=== PATIENT | male | born 1955 | race Two or more races ===

== ENCOUNTER 2023-12-10 12:54 | Outpatient (AMB) | payer OTHER, SELFPAY ==
--- NOTE | 2023-12-10 12:58 | MHC.OFFVIS ---
Vital Signs 12/10/23 13:05 Height 6 ft Weight 179 lb BMI 24.3 BP 122/70 Blood Pressure Location Rt brachial Position Sitting Respiration 16 Pulse 64 Pulse Source Pulse Oximeter Pulse Oximetry (%) 98 Oxygen Delivery Method Room Air Intake Visit Reasons: ENP: Resting Tremor - LVM w/add Intake Note: Pt presents for new pt evaluation for tremors. Pt reports this started about 3 years ago on his left hand. It has spread to the right hand over the last year. Emergency Specialist Required: No Allergies Sulfa (Sulfonamide Antibiotics) Allergy (Mild, Verified 12/10/23 12:58) Rash Medication List - Last Reconciled 12/10/23 by Marilee Krishna MD aspirin 81 mg PO DAILY clotrimazole 1% 1 appl topical BID cyanocobalamin (vitamin B-12) 1,000 mcg PO DAILY HPI Comments Details: 68y/o Right Handed male comes for evaluation of tremors. He started noticing tremor sin his left hand about 5 years which has progressed and now he has tremors in his right hand as well. The tremors are more with action and posture but he has tremors at rest as well.It does not affect his ADLs , may have some difficulty while brushing his teeth .He denies any leg tremors, head or voice tremors. Handwriting is fine most of the times. No difficulty with dressing or showering No change in voice. No change in gait No memory problems/ No memory issues,depression or anxiety. He has dizziness that started 10 years ago. he describes the episode of vertigo with nausea, sweating . No tinnitus.He has 1 episode a month and can last 10 minutes. He denies constipation or diarhea. Both his brothers are diagnosed with parkinsons disease. 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 He smokes 1 joint of weed a night [facility] Medical History (Updated 12/10/23 @ 13:37 by Marilee Krishna MD) Chronic prostatitis Essential and other specified forms of tremor Neck pain Low back pain B12 deficiency Lipoma Family History Brother No problems noted. Father No problems noted. Mother No problems noted. Social History Household Members: None Housing: Apartment Alcohol intake: never Patient Tobacco Use Status: Never used Tobacco Substance Use Type: Marijuana Substance Use Type Other:: One joint daily Physical Exam Vital Signs: Last Vital Signs Pulse 64 12/10/23 13:05 Resp 16 12/10/23 13:05 BP 122/70 12/10/23 13:05 Pulse Ox 98 12/10/23 13:05 Oxygen Delivery Method Room Air 12/10/23 13:05 BMI result Body Mass Index 24.3 Const Other: Andreas Ue postural and action tremors Voice tremors Good facial expression and blink No bradykinesia or cog wheel rigidity General: cooperative, healthy appearing and comfortable Nutritional Appearance: average body habitus Orientation/consciousness: patient oriented x3 Eyes Pupils: Equal, round and reactive pupils present Neuro General: patient oriented x3, gait normal, tone normal, moves all extremities and no focal motor deficits Cranial nerves: Yes Facial sensation intact/muscles of mastication intact, Yes Equal, round and reactive pupils present, Yes Bilaterally intact EOM present, Yes Nystagmus not present, Yes Normal facial strength present, Yes Midline tongue present and Yes Ability to bilaterally elevate shoulders present Cognition (Neuro): normal cognition Gait exam (Neuro): Normal gait present Motor exam (neuro): 5/5 motor strength present throughout and Normal motor muscle tone present throughout Deep tendon reflexes (DTR's): Right triceps reflex intensity grade: 2+, Left triceps reflex intensity grade: 2+, Rt Biceps (C5, C6): 2+, Left biceps reflex intensity grade: 2+, Right brachioradialis reflex intensity grade: 2+, Left brachioradialis reflex intensity grade: 2+, Right patellar reflex intensity grade: 3+ and Left patellar reflex intensity grade: 3+ Coordination: [id number] test normal Assessment & Plan Assessment & Plan (1) Essential and other specified forms of tremor: Code(s): G25.0 - Essential tremor; G25.2 - Other specified forms of tremor Category: Medical Plan I will trial him on Primidone 50mg tid for 2 weeks if he luz snot notice improvemnet he can stop. I will monitor his tremors clinically Medications: New primidone 50 mg PO TID 90 tabs 0RF Coding Level of Care Code New Pt Level 4 (29377) Diagnoses Essential and other specified forms of tremor G25.0; G25.2
[2023-12-10 13:05] VITALS: BP 122/70; PULSE 64; RESP 16; O2SAT 98; BMI 24.3
== END 2023-12-10 13:43 | disposition home or self-care (01) ==
PROVIDERS: PCP Internal Medicine; Referring Provider Internal Medicine; Visit Provider Psychiatry & Neurology Neurology
DX: G25.0 Essential tremor (principal); G25.2 Other specified forms of tremor
CPT/HCPCS: 99204

== ENCOUNTER → 2023-12-10 12:54 | Outpatient (BNVA) | payer OTHER, SELFPAY | PROVIDERS: PCP Internal Medicine; Visit Provider Psychiatry & Neurology Neurology | DX: G25.0 Essential tremor (principal); G25.2 Other specified forms of tremor | CPT/HCPCS: 99202 ==

== ENCOUNTER 2024-07-13 15:30 | Outpatient (AMB) | payer OTHER, SELFPAY ==
[2024-07-13 15:32] VITALS: BP 128/86; PULSE 61; O2SAT 97; BMI 25.5
--- NOTE | 2024-07-13 15:32 | A.OFFVIS_ITS ---
Vital Signs 07/13/24 15:32 Height 6 ft Weight 188 lb BMI 25.5 BP 128/86 Blood Pressure Location Lt brachial Position Sitting Pulse 61 Pulse Source Pulse Oximeter Pulse Oximetry (%) 97 Oxygen Delivery Method Room Air Intake Visit Reasons: 6 mon follow up Allergies Sulfa (Sulfonamide Antibiotics) Allergy (Mild, Verified 07/13/24 15:34) Rash Medication List - Last Reconciled 07/13/24 by Marilee Krishna MD aspirin 81 mg PO DAILY HPI Comments Details: 69y/o Right Handed male follow up of tremors.he did not tolerate primidone. He did feel groggy. he has difficulty eating , writing etc. He also has reports of vertigo when he usually wakes up from bed with nausea, sweating etc. History from initial visit-He started noticing tremor sin his left hand about 5 years which has progressed and now he has tremors in his right hand as well. The tremors are more with action and posture but he has tremors at rest as well.It does not affect his ADLs , may have some difficulty while brushing his teeth .He denies any leg tremors, head or voice tremors. Handwriting is fine most of the times. No difficulty with dressing or showering No change in voice. No change in gait No memory problems/ No memory issues,depression or anxiety. He has dizziness that started 10 years ago. he describes the episode of vertigo with nausea, sweating . No tinnitus.He has 1 episode a month and can last 10 minutes. He denies constipation or diarhea. Both his brothers are diagnosed with parkinsons disease. 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 He smokes 1 joint of weed a night [facility] Medical History Vertigo Chronic prostatitis Essential and other specified forms of tremor Neck pain Low back pain B12 deficiency Lipoma Family History Brother No problems noted. Father No problems noted. Mother No problems noted. Social History Household Members: None Housing: Apartment Alcohol intake: never Patient Tobacco Use Status: Never used Tobacco Substance Use Type: Marijuana Physical Exam Vital Signs: Last Vital Signs Pulse 61 07/13/24 15:32 BP 128/86 07/13/24 15:32 Pulse Ox 97 07/13/24 15:32 Oxygen Delivery Method Room Air 07/13/24 15:32 BMI result Body Mass Index 25.5 Const Other: Andreas Ue postural and action tremors No voice tremors Good facial expression and blink No bradykinesia or cog wheel rigidity General: cooperative, healthy appearing and comfortable Nutritional Appearance: average body habitus Orientation/consciousness: patient oriented x3 Eyes Pupils: Equal, round and reactive pupils present Neuro General: patient oriented x3, gait normal, tone normal, moves all extremities and no focal motor deficits Cranial nerves: Yes Facial sensation intact/muscles of mastication intact, Yes Equal, round and reactive pupils present, Yes Bilaterally intact EOM present, Yes Nystagmus not present, Yes Normal facial strength present, Yes Midline tongue present and Yes Ability to bilaterally elevate shoulders present Cognition (Neuro): normal cognition Gait exam (Neuro): Normal gait present Motor exam (neuro): 5/5 motor strength present throughout and Normal motor muscl e tone present throughout Deep tendon reflexes (DTR's): Right triceps reflex intensity grade: 2+ Coordination: [id number] test normal Assessment & Plan Assessment & Plan (1) Essential and other specified forms of tremor: Code(s): G25.0 - Essential tremor; G25.2 - Other specified forms of tremor Category: Medical (2) Vertigo: Comment: renae BP Code(s): R42 - Dizziness and giddiness Category: Medical Plan I will trial him on Propranolol 10mg bid .discussed side effects Vestibular therapy for vertigo . Orders: Orders PT Evaluation and Treatment Today R42 - Dizziness and giddiness Medications: New propranolol 10 mg PO BID 60 tabs 0RF Coding Level of Care Code Est Pt Level 4 (74900) Complex EM visit Add On G2211 Diagnoses Essential and other specified forms of tremor G25.0; G25.2 Vertigo R42
--- OUTSIDE RECORDS SUMMARY | 2024-07-13 17:19 | XMS_ITS | Continuity of Care Document ---
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 It does not include entries that were removed or entered in error. 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 Condition [facility] Exposure to potentially hazardous substance Active Condition Aug 28, 2023 Entered By: CHINA SILVERIO Comment: Original ASHLEY Screen completed 06/11/22 [facility] [place] [facility] herniated disc Active [facility] [place] [facility] Herpes Genitalis Active Condition Aug 11, 2012 Entered By: JOY KAUFFMAN Comment: and Oral Mucosa [place] History of adenomatous polyp of colon Active Condition Aug 21, 2007 Entered By: JENN MARTINEZ Comment: August 01, 2007 wnl GI [place] 2021 Entered By: TAVO LANDEROS Comment: -- 07/2018 2x TA -> due ec 2023 Entered By: TAVO LANDEROS Comment: 02/2024 TA x11 removed, size 3-7mm- repeat 12m -Genetic referral [facility] by [facility] [place] [facility] History of haematuria Active Condition Jun 11, 2022 Entered By: TAVO LANDEROS Comment: negative urology work up 2021 Entered By: TAVO LANDEROS Comment: CT A/P and cystoscopy [place] Insomnia * (ICD-9-CM 780.52) Active Condition [place] Loose stools Active Condition [facility] Lumbar radiculopathy Active Condition [place] Major Depressive Disorder, Recurrent, Unspecified (ICD-9-CM 296.30) Active Condition [place] Male erectile disorder Active [facility] Male hypogonadism Active Condition [place] Microcytic hypochromic anemia Active Condition Oct 28, 2015 Entered By: FRANSICO OLIVA Comment: see hemoglobin electrophoresis 04/2013, probableApr 2015 Entered By: FRANSICO OLIVA Comment: alpha thalassemia trait [place] Non-cardiac chest pain Active Condition Apr 28, 2018 Entered By: FRANSICO OLIVA Comment: ETT 11/2017 - 100% MPHR at high functional capacity w/o chest pain or DOEOct 2017 Entered By: FRANSICO OLIVA Comment: no diagnostic evidence of ischemia by ECG, no sustained arrhythmias [place] 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 [facility] Orthostatic Hypotension * (ICD-9-CM 458.0) Active Condition [facility] Osteoarthritis * (ICD-9-CM 715.90) Active Condition [place] Overweight Active Condition [facility] Personal History of Affective Disorders (ICD-9-CM V11.1) Active Condition [facility] Raised prostate specific antigen Active Condition Jun 11 Entered By: TAVO LANDEROS Comment: normalized ec 2021 Entered By: TAVO LANDEROS Comment: TRUS Bx 05/2021 benign [place] Resting tremor Active Condition [facility] Thiamine deficiency Active Condition [facility] Transient Ischemic Attack * (ICD-9-CM 435.9) Active Condition [place] Tremor Active Condition [facility] Varicocele * (ICD-9-CM 456.4) Active Condition [facility] Vitamin B12 deficiency (non anemic) [facility] abnl cardiac stress test Inactive Condition 06/11/2022 Jun 17, 2007 Entered By: OSWALD RIVAS Comment: review records, will likely need cardio referalMay 2009 Entered By: FRANSICO OLIVA Comment: normal ETT 2009 [facility] Anemia Inactive Condition 11/06/2011 [facility] Diagnosis: ICD-10-CM L98.9 Disorder of the skin and subcutaneous tissue, unspecified Active Diagnosis [place] Diagnosis: ICD-10-CM Z46.0 Encounter for fit/adjst of spectacles and contact lenses Active Diagnosis [facility] Diagnosis: ICD-10-CM H40.013 Open angle with borderline findings, low risk, bilateral Active Diagnosis [facility] Diagnosis: ICD-10-CM H25.813 Combined forms of age-related cataract, bilateral Active Diagnosis [facility] Diagnosis: ICD-10-CM I10 Essential (primary) hypertension Active Diagnosis [facility] Diagnosis: ICD-10-CM I35.8 Other nonrheumatic aortic valve disorders Active Diagnosis [facility] Diagnosis: ICD-10-CM L01.00 Impetigo, unspecified Active Diagnosis [place] Diagnosis: ICD-10-CM R25.1 Tremor, unspecified Active Diagnosis [facility] Medications Combined list of outpatient medications from Department of Defense and Veterans Affairs facilities.Medications provided include 1) outpatient medications from the last 15 months, and 2) patient-reported medications. Medication Details Route Status Patient Instructions Prescription Expires Prescription Number Last Dispense Date Ordering Provider Order Date Order Qty Source ASPIRIN 81MG TAB,EC TAKE ONE TABLET BY MOUTH DAILY ORAL ACTIVE Alfonso OLIVA 2012 [facility] chlorhex gluc 4 % TOP LIQD [15 ML] APPLY MODERATE AMOUNT TOPICALL Y ONCE DAILY FOR SKIN CLEANSIN G 08/10/2023 [id number] TAVO NELSON 2023 480 [facility] CHLORHEXIDI NE GLUCONATE 4% LIQUID,TOP APPLY MODERATE AMOUNT TOPICALL Y ONCE DAILY FOR SKIN CLEANSIN G TOPICA L 08/10/2023 [id number] 4 TAVO NELSON 2023 480 [place] Clotrimazol e (Lotrimin Eq.) Cream 1% Topical APPLY A SMALL AMOUNT TOPICALL Y TWICE DAILY FOR FUNGAL INFECTIO N 09/22/2023 [id number] TAVO NELSON 2023 30 [facility] CLOTRIMAZOL E 1% CREAM,TOP APPLY A SMALL AMOUNT TOPICALL Y TWICE DAILY FOR FUNGAL INFECTIO N TOPICA L 09/22/2023 [id number] TAVO NELSON 2023 30 [place] CYANOCOBALA MIN 1,000 MCG ORAL TAB TAKE ONE TABLET BY MOUTH ONCE DAILY FOR VITAMIN SUPPLEME NTATION Discont inued 07/11/2024 [id number] 4 TAVO NELSON 2023 90 [facility] CYANOCOBALA MIN 1000MCG TAB TAKE ONE TABLET BY MOUTH ONCE DAILY FOR VITAMIN SUPPLEME NTATION ORAL DISCONT INUED BY PROVIDE R 07/11/2024 [id number] 4 TAVO NELSON 2023 90 [place] CYANOCOBALA MIN 500 MCG ORAL TAB TAKE ONE TABLET BY MOUTH ONCE DAILY FOR PREVENTI ON OF VITAMIN B12 DEFICIEN CY Active 09/01/2024 [id number] 4 TAVO NELSON 2023 100 [facility] CYANOCOBALA MIN 500MCG TAB TAKE ONE TABLET BY MOUTH ONCE DAILY FOR PREVENTI ON OF VITAMIN B12 DEFICIEN CY ORAL HOLD 09/01/2024 [id number] 4 TAVO NELSON 2023 100 [place] Hydrocortis one (ProctoCrea m-HC Eq.) Cream 2.5% Topical APPLY A MODERATE AMOUNT TOPICALL Y TWICE DAILY FOR RASH 09/22/2023 [id number] TAVO NELSON 2023 30 [facility] HYDROCORTIS ONE 2.5% CREAM,TOP APPLY A MODERATE AMOUNT TOPICALL Y TWICE DAILY FOR RASH TOPICA L 09/22/2023 [id number] TAVO NELSON 2023 30 [facility] mupirocin 2 % TOP OINT [15GM] APPLY THIN LAYER TOPICALL Y THREE TIMES A DAY FOR SKIN INFECTIO N 08/10/2023 [id number] 4 TAVO NELSON 2023 66 [facility] MUPIROCIN 2% OINT,TOP APPLY THIN LAYER TOPICALL Y THREE TIMES A DAY FOR SKIN INFECTIO N TOPICA L 08/10/2023 [id number] 4 TAVO NELSON 2023 66 [place] PEG-3350 (SODIUM CHLORIDE/NA HCO3/KCL/PE G), 420G, SOLN RECON, ORAL, AFFORDABLE PHAR, 4000 ml BOTTLE Cancele d [id number] 4 [id number] : 2023 0 Pharmac y Data Transac tion Service Facilit y PEG-3350 (SODIUM CHLORIDE/NA HCO3/KCL/PE G), 420G, SOLN RECON, ORAL, AFFORDABLE PHAR, 4000 ml BOTTLE Active [id number] 2023 4000 Pharmac y Data Transac tion Service Facilit y PRIMIDONE (PRIMIDONE) , 50MG, TABLET, ORAL, [employer], 100 ea. BOTTLE Active [id number] 2023 90 Pharmac y Data Transac tion Service Facilit y THIAMINE 100MG TAB TAKE ONE TABLET BY MOUTH ONCE DAILY ORAL DISCONT INUED BY PROVIDE R 07/11/2024 [id number] LINN NONAMARIAMACLAYTONGamalielBRIGITTECOLIN Estephania 2023 100 [place] Thiamine 100mg, Tablet, Oral TAKE ONE TABLET BY MOUTH ONCE DAILY Discont inued 07/11/2024 [id number] 4 TAVO NELSON 2023 100 [facility] THIAMINE 50MG TAB TAKE ONE TABLET BY MOUTH ONCE DAILY FOR DEFICIEN CY IN THIAMINE OR VITAMIN B1 ORAL ACTIVE 06/29/2025 [id number] 4 LINN NONATAVO LESLIE 2023 90 [facility] Allergies, Adverse Reactions, Alerts Combined list of allergies from Department of Defense and Veterans Affairs facilities. It does not include entries that were removed or entered in error. Substance Category Reaction Severity Reaction type Status Date Reported Comments Source BACTRIM-DS Propensity to adverse reactions to drug (finding) Jaundice SEVERE active 5 [facility] Immunizations Combined list of available immunizations from the Department of Defense and Veterans Affairs facilities. Immunization Series Date Given Administered By Site Reaction Lot Number CVX Code Drug Lumber Marker Status Comments Source INFLUENZA, UNSPECIFIED FORMULATION 2023 88 complet ed [facility] [place] [facility] INFLUENZA, UNSPECIFIED FORMULATION 2023 88 complet ed [facility] INFLUENZA VACCINE, QUADRIVALENT, ADJUVANTED 2021 205 complet ed [facility] PNEUMOCOCCAL CONJUGATE PCV20, POLYSACCHARID E [id number] CONJUGATE, ADJUVANT, PF 2021 216 complet ed [facility] COVID-19, mRNA, LNP-S, PF, 100 mcg or 50 mcg dose 2021 BOGDASARIAN, () Not Given COVID-19, mRNA, LNP-S, PF, 100 mcg or 50 mcg dose [facility] INFLUENZA VACCINE, QUADRIVALENT, ADJUVANTED 2020 205 complet ed [facility] TDAP 2020 115 complet ed [facility] COVID-19 (MODERNA), MRNA, LNP-S, PF, 100 MCG/0.5 ML DOSE 2 2020 207 complet ed MOD; [id number]; 1 [place] COVID-19 (MODERNA), MRNA, LNP-S, PF, 100 MCG/0.5 ML DOSE 1 2020 207 complet ed MOD; [id number]; 1 [place] INFLUENZA, INJECTABLE, QUADRIVALENT, PRESERVATIVE FREE 2019 150 complet ed [place] PNEUMOCOCCAL POLYSACCHARID E PPV23 2019 33 complet ed [place] INFLUENZA, INJECTABLE, QUADRIVALENT, PRESERVATIVE FREE 2018 150 complet ed Site: Left Deltoid [place] ZOSTER RECOMBINANT 2 2018 187 complet ed [place] INFLUENZA, INJECTABLE, QUADRIVALENT 2017 158 complet ed Site: Right Deltoid [place] ZOSTER RECOMBINANT 1 2017 187 complet ed [place] INFLUENZA, SEASONAL, INJECTABLE 2016 141 complet ed Site: Right Deltoid [place] ZOSTER (HISTORICAL) 2015 121 complet ed [place] FLU,3 YRS (HISTORICAL) 2014 88 complet ed Site: Left Deltoid [place] FLU,3 YRS (HISTORICAL) 2013 88 complet ed Site: Left Deltoid [place] FLU,3 YRS (HISTORICAL) 2012 88 complet ed Site: Left Deltoid [place] FLU,3 YRS (HISTORICAL) 2011 88 complet ed Site: Left Deltoid [place] FLU,3 YRS (HISTORICAL) 2010 88 complet ed Site: Right Deltoid [place] DTAP, UNSPECIFIED FORMULATION 2010 107 complet ed Site: Left Deltoid [place] FLU,3 YRS (HISTORICAL) 2009 88 complet ed Site: Left Deltoid [place] NOVEL INFLUENZA-H1N 1-09, ALL FORMULATIONS 2009 128 complet ed [employer] [place] MMR 2008 ROYA KIM 03 comple t ed [place] FLU,3 YRS (HISTORICAL) 2008 88 complet ed Site: Right Deltoid [place] FLU,3 YRS (HISTORICAL) [address] [facility] [place] [facility] FLU,3 YRS (HISTORICAL) 2006 88 complet ed [facility] [place] [facility] Results Combined list of recent chemistry, hematology and other laboratory results from Department of Defense and Veterans Affairs, ranging from 15 months to all on record, depending upon the facility. Order Name Results Value Reference Range Date Interpretation Specimen Comments Source VITAMIN B-1 (THIAMINE )-(QU) THIAMINE [MOLES/VOLU ME] IN SERUM OR PLASMA 6 nmol/L 8 - 30 06/19 L Specimen Type: PLASMA Comment: Vitamin supplementa tion within 24 hours prior to blood draw may affect the accuracy of the results. This test was developed and its analytical performance characteris tics have been determined by [employer] It has not been cleared or approved by the U.S. Food and Drug Administrat ion. This assay has been validated pursuant to the CLIA regulations and is used for clinical purposes. Test Performed by [facility], [facility], [address] [place] [address] Juan Sanchez M.D., Ph.D., Director of Laboratorie s , CLIA [id number] TEST PERFORMED AT: , Ordering Provider: ALIRIO SMITH Report Released Date/Time: Jun 14, 2024 11:22 AM Reporting Lab: [facility] [address] [facility] [address] Performing Lab: [facility] [address] PSA PROSTATE SPECIFIC AG [MASS/VOLUM E] IN SERUM OR PLASMA 4.27 ng/mL 0.00 - 4.00 06/19 H Specimen Type: SERUM No comment entered. Ordering Provider: ALIRIO SMITH Report Released Date/Time: Jun 14, 2024 11:21 AM Reporting Lab: [facility] [address] [facility] [address] Performing Lab: [facility] [address] [facility] [address] [place] VITAMIN B12 COBALAMIN (VITAMIN B12) [MASS/VOLUM E] IN SERUM OR PLASMA 333 pg/mL 200 - 900 06/19 Specimen Type: SERUM No comment entered. Ordering Provider: ALIRIO SMITH Report Released Date/Time: Jun 14, 2024 11:22 AM Reporting Lab: [address] [address] Performing Lab: [address] [address] [place] LIPID PANEL FASTING CHOLESTEROL [MASS/VOLUM E] IN SERUM OR PLASMA 147 mg/dL 06/19 Specimen Type: SERUM No comment entered. Ordering Provider: ALIRIO SMITH Report Released Date/Time: Jun 11, 2024 03:04 PM Reporting Lab: [address] [address] Performing Lab: [address] [address] [place] LIPID PANEL FASTING TRIGLYCERID E [MASS/VOLUM E] IN SERUM OR PLASMA 69 mg/dL 0 - 150 06/19 Specimen Type: SERUM No comment entered. Ordering Provider: ALIRIO SMITH Report Released Date/Time: Jun 11, 2024 03:04 PM Reporting Lab: [address] [address] Performing Lab: [address] [address] [place] LIPID PANEL FASTING CHOLESTEROL IN LDL [MASS/VOLUM E] IN SERUM OR PLASMA BY CALCULATION 91 mg/dL 0 - 129 06/19 Specimen Type: SERUM No comment entered. Ordering Provider: ALIRIO SMITH Report Released Date/Time: Jun 11, 2024 03:04 PM Reporting Lab: [address] [address] Performing Lab: [facility] [place] [facility] [address] [facility] [address] [place] LIPID PANEL FASTING CHOLESTEROL .TOTAL/CHOL ESTEROL IN HDL [MASS RATIO] IN SERUM OR PLASMA 3.5 06/19 Specimen Type: SERUM No comment entered. Ordering Provider: ALIRIO SMITH Report Released Date/Time: Jun 11, 2024 03:04 PM Reporting Lab: [facility] [address] [address] Performing Lab: [facility] [place] [facility] [address] [place] LIPID PANEL FASTING CHOLESTEROL IN HDL [MASS/VOLUM E] IN SERUM OR PLASMA 42 mg/dL 40 - 60 06/19 Specimen Type: SERUM No comment entered. Ordering Provider: ALIRIO SMITH Report Released Date/Time: Jun 11, 2024 03:04 PM Reporting Lab: [facility] TRN [place] [address] [address] Performing Lab: [facility] [place] [address] [address] [place] LIVER FUNCTION PROTEIN [MASS/VOLUM E] IN SERUM OR PLASMA 6.0 g/dL 6.0 - 8.3 06/19 Specimen Type: SERUM No comment entered. Ordering Provider: ALIRIO SMITH Report Released Date/Time: Jun 11, 2024 03:04 PM Reporting Lab: [facility] [place] [address] [address] Performing Lab: [facility] [address] [place] LIVER FUNCTION ALBUMIN [MASS/VOLUM E] IN SERUM OR PLASMA 3.7 g/dL 3.5 - 5.0 06/19 Specimen Type: SERUM No comment entered. Ordering Provider: ALIRIO SMITH Report Released Date/Time: Jun 11, 2024 03:04 PM Reporting Lab: [facility] [place] [facility] [address] [facility] [address] Performing Lab: [facility] [place] [facility] [address] [facility] [address] [place] LIVER FUNCTION ALKALINE PHOSPHATASE [ENZYMATIC ACTIVITY/VO LUME] IN SERUM OR PLASMA 63 U/L 40 - 150 06/19 Specimen Type: SERUM No comment entered. Ordering Provider: ALIRIO SMITH Report Released Date/Time: Jun 11, 2024 03:04 PM Reporting Lab: [facility] [place] [facility] [address] [facility] [address] Performing Lab: [facility] [place] [address] [address] [place] LIVER FUNCTION ASPARTATE AMINOTRANSF ERASE [ENZYMATIC ACTIVITY/VO LUME] IN SERUM OR PLASMA 15 U/L 5 - 34 06/19 Specimen Type: SERUM No comment entered. Ordering Provider: ALIRIO SMITH Report Released Date/Time: Jun 11, 2024 03:04 PM Reporting Lab: [facility] [place] [address] [address] Performing Lab: [facility] [place] [address] [address] [place] LIVER FUNCTION ALANINE AMINOTRANSF ERASE [ENZYMATIC ACTIVITY/VO LUME] IN SERUM OR PLASMA 14 U/L 06/19 Specimen Type: SERUM No comment entered. Ordering Provider: ALIRIO SMITH Report Released Date/Time: Jun 11, 2024 03:04 PM Reporting Lab: [facility] [place] [address] [address] Performing Lab: [facility] [place] [address] [address] [place] LIVER FUNCTION BILIRUBIN.T OTAL [MASS/VOLUM E] IN SERUM OR PLASMA 0.5 mg/dL 0.2 - 1.2 06/19 Specimen Type: SERUM No comment entered. Ordering Provider: ALIRIO SMITH Report Released Date/Time: Jun 11, 2024 03:04 PM Reporting Lab: [facility] [address] [address] Performing Lab: [address] [address] [place] HEMOGLOBI N A1C PANEL HEMOGLOBIN A1C/HEMOGLO BIN.TOTAL IN BLOOD BY HPLC 5.3 4.0 - 5.6 06/19 Specimen Type: BLOOD Comment: Values obtained from A1C measurement s can vary. For atypical A1C assays, a reported value of 7.0 could actually be between 6.72 and 7.28 if measured by a reference method. A reported value of 9.0 could actually be between 8.73 and 9.27. Ref: http://www. ngsp.org/[place] Pdata.asp Ordering Provider: ALIRIO SMITH Report Released Date/Time: Jun 11, 2024 03:04 PM Reporting Lab: [facility] [address] Performing Lab: [facility] [address] [place] BASIC METABOLIC PANEL (fasting) UREA NITROGEN [MASS/VOLUM E] IN SERUM OR PLASMA 8 mg/dL 7 - 25 06/19 Specimen Type: SERUM No comment entered. Ordering Provider: ALIRIO SMITH Report Released Date/Time: Jun 11, 2024 03:04 PM Reporting Lab: [facility] [address] Performing Lab: [facility] [address] [place] BASIC METABOLIC PANEL (fasting) GLUCOSE [MASS/VOLUM E] IN SERUM OR PLASMA 90 mg/dL 65 - 100 06/19 Specimen Type: SERUM No comment entered. Ordering Provider: ALIRIO SMITH Report Released Date/Time: Jun 11, 2024 03:04 PM Reporting Lab: [facility] [address] Performing Lab: [facility] [address] [facility] [address] [place] BASIC METABOLIC PANEL (fasting) SODIUM [MOLES/VOLU ME] IN SERUM OR PLASMA 140 mmol/L 135 - 145 06/19 Specimen Type: SERUM No comment entered. Ordering Provider: ALIRIO SMITH Report Released Date/Time: Jun 11, 2024 03:04 PM Reporting Lab: [facility] [address] [facility] [address] Performing Lab: [address] [address] [place] BASIC METABOLIC PANEL (fasting) POTASSIUM [MOLES/VOLU ME] IN SERUM OR PLASMA 4.1 mmol/L 3.5 - 5.0 06/19 Specimen Type: SERUM No comment entered. Ordering Provider: ALIRIO SMITH Report Released Date/Time: Jun 11, 2024 03:04 PM Reporting Lab: [facility] [address] [address] Performing Lab: [address] [address] [place] BASIC METABOLIC PANEL (fasting) CHLORIDE [MOLES/VOLU ME] IN SERUM OR PLASMA 108 mmol/L 100 - 110 06/19 Specimen Type: SERUM No comment entered. Ordering Provider: ALIRIO SMITH Report Released Date/Time: Jun 11, 2024 03:04 PM Reporting Lab: [facility] [address] [address] Performing Lab: [address] [address] [place] BASIC METABOLIC PANEL (fasting) CARBON DIOXIDE, TOTAL [MOLES/VOLU ME] IN SERUM OR PLASMA 26 meq/L 20 - 30 06/19 Specimen Type: SERUM No comment entered. Ordering Provider: ALIRIO SMITH Report Released Date/Time: Jun 11, 2024 03:04 PM Reporting Lab: [facility] TRN [address] [address] Performing Lab: [facility] [place] [address] [address] [place] BASIC METABOLIC PANEL (fasting) CREATININE [MASS/VOLUM E] IN SERUM OR PLASMA 0.86 mg/dL 0.50 - 1.40 06/19 Specimen Type: SERUM No comment entered. Ordering Provider: ALIRIO SMITH Report Released Date/Time: Jun 11, 2024 03:04 PM Reporting Lab: [facility]ITALRL [facility] [address] [address] Performing Lab: [facility] [place] [address] [address] [place] BASIC METABOLIC PANEL (fasting) GLOMERULAR FILTRATION RATE/1.73 SQ M.PREDICTED [VOLUME RATE/AREA] IN SERUM, PLASMA OR BLOOD BY CREATININE- BASED FORMULA (CKD-EPI 2020) >90mL/ min 60 06/19 Specimen Type: SERUM No comment entered. Ordering Provider: ALIRIO SMITH Report Released Date/Time: Jun 11, 2024 03:04 PM Reporting Lab: [facility] TRN [address] [address] Performing Lab: [facility] [place] [address] [address] [place] TSH THYROTROPIN [UNITS/VOLU ME] IN SERUM OR PLASMA 0.99 u[IU]/ mL 0.35 - 5.00 06/19 Specimen Type: SERUM No comment entered. Ordering Provider: ALIRIO SMITH Report Released Date/Time: Jun 11, 2024 03:04 PM Reporting Lab: [facility] TRN [address] [address] Performing Lab: [facility]RL [facility]N [address] [address] [place] CBC AND DIFF (AUTO) LEUKOCYTES [#/VOLUME] IN BLOOD BY AUTOMATED COUNT 5.24 10*3/u L 4.50 - 11.00 06/19 Specimen Type: BLOOD No comment entered. Ordering Provider: ALIRIO SMITH Report Released Date/Time: Jun 11, 2024 03:04 PM Reporting Lab: [place] [facility] [place] [address] [address] Performing Lab: [place] [facility] [address] [address] [place] CBC AND DIFF (AUTO) ERYTHROCYTE S [#/VOLUME] IN BLOOD BY AUTOMATED COUNT 5.64 10*6/u L 4.23 - 5.66 06/19 Specimen Type: BLOOD No comment entered. Ordering Provider: ALIRIO SMITH Report Released Date/Time: Jun 11, 2024 03:04 PM Reporting Lab: [facility] [address] [address] Performing Lab: [facility] [place] [address] [address] [place] CBC AND DIFF (AUTO) HEMOGLOBIN [MASS/VOLUM E] IN BLOOD 13.1 g/dL 12.8 - 17 06/19 Specimen Type: BLOOD No comment entered. Ordering Provider: ALIRIO SMITH Report Released Date/Time: Jun 11, 2024 03:04 PM Reporting Lab: [facility] [place] [address] [address] Performing Lab: [facility] [place] [address] [address] [place] CBC AND DIFF (AUTO) HEMATOCRIT [VOLUME FRACTION] OF BLOOD BY AUTOMATED COUNT 41.7 39.2 - 50.4 06/19 Specimen Type: BLOOD No comment entered. Ordering Provider: ALIRIO SMITH Report Released Date/Time: Jun 11, 2024 03:04 PM Reporting Lab: [facility] [place] [address] [address] Performing Lab: [facility] [place] [facility] [address] [facility] [address] [place] CBC AND DIFF (AUTO) MCV [ENTITIC VOLUME] BY AUTOMATED COUNT 73.9 fL 82 - 99 06/19 L Specimen Type: BLOOD No comment entered. Ordering Provider: ALIRIO SMITH Report Released Date/Time: Jun 11, 2024 03:04 PM Reporting Lab: [facility] [place] [address] [address] Performing Lab: [place] [facility] [place] [address] [address] [place] CBC AND DIFF (AUTO) MCHC [MASS/VOLUM E] BY AUTOMATED COUNT 31.4 g/dL 30.8 - 35.1 06/19 Specimen Type: BLOOD No comment entered. Ordering Provider: ALIRIO SMITH Report Released Date/Time: Jun 11, 2024 03:04 PM Reporting Lab: [facility] [place] [address] [address] Performing Lab: [facility] [address] [address] [place] CBC AND DIFF (AUTO) PLATELETS [#/VOLUME] IN BLOOD BY AUTOMATED COUNT 181 10*3/u L 140 - 360 06/19 Specimen Type: BLOOD No comment entered. Ordering Provider: ALIRIO SMITH Report Released Date/Time: Jun 11, 2024 03:04 PM Reporting Lab: [facility] [place] [address] [address] Performing Lab: [facility] [place] [address] [address] [place] CBC AND DIFF (AUTO) ERYTHROCYTE DISTRIBUTIO N WIDTH [RATIO] BY AUTOMATED COUNT 15.7 12.0 - 16.0 06/19 Specimen Type: BLOOD No comment entered. Ordering Provider: ALIRIO SMITH Report Released Date/Time: Jun 11, 2024 03:04 PM Reporting Lab: [facility] [place] [address] [place] [address] Performing Lab: [facility] [place] [facility] [address] [facility] [address] [place] CBC AND DIFF (AUTO) MONOCYTES [#/VOLUME] IN BLOOD BY AUTOMATED COUNT 0.34 10*3/u L 0.30 - 1.10 06/19 Specimen Type: BLOOD No comment entered. Ordering Provider: ALIRIO SMITH Report Released Date/Time: Jun 11, 2024 03:04 PM Reporting Lab: [facility] [place] [address] [address] Performing Lab: [facility] [place] [address] [address] [place] CBC AND DIFF (AUTO) MCH [ENTITIC MASS] BY AUTOMATED COUNT 23.2 pg 26.2 - 32.6 06/19 L Specimen Type: BLOOD No comment entered. Ordering Provider: ALIRIO SMITH Report Released Date/Time: Jun 11, 2024 03:04 PM Reporting Lab: [facility] [place] [address] [address] Performing Lab: [facility] [place] [address] [address] [place] CBC AND DIFF (AUTO) NEUTROPHILS /100 LEUKOCYTES IN BLOOD BY AUTOMATED COUNT 61.2 43.7 - 75.8 06/19 Specimen Type: BLOOD No comment entered. Ordering Provider: ALIRIO SMITH Report Released Date/Time: Jun 11, 2024 03:04 PM Reporting Lab: [facility] [place] [address] [address] Performing Lab: [facility] [place] [address] [address] [place] CBC AND DIFF (AUTO) LYMPHOCYTES /100 LEUKOCYTES IN BLOOD BY AUTOMATED COUNT 28.4 14.0 - 42.3 06/19 Specimen Type: BLOOD No comment entered. Ordering Provider: ALIRIO SMITH Report Released Date/Time: Jun 11, 2024 03:04 PM Reporting Lab: [facility]TRN [address] [address] Performing Lab: [facility]ENTERTRN [facility] [address] [place] CBC AND DIFF (AUTO) MONOCYTES/1 00 LEUKOCYTES IN BLOOD BY AUTOMATED COUNT 6.5 5.1 - 13.7 06/19 Specimen Type: BLOOD No comment entered. Ordering Provider: ALIRIO SMITH Report Released Date/Time: Jun 11, 2024 03:04 PM Reporting Lab: [facility] [place] [address] [address] Performing Lab: [facility] [place] [address] [address] [place] CBC AND DIFF (AUTO) EOSINOPHILS /100 LEUKOCYTES IN BLOOD BY AUTOMATED COUNT 2.5 0.4 - 6.8 06/19 Specimen Type: BLOOD No comment entered. Ordering Provider: ALIRIO SMITH Report Released Date/Time: Jun 11, 2024 03:04 PM Reporting Lab: [facility]TRN [address] [address] Performing Lab: [facility]ENTERTRN [facility] [address] [place] CBC AND DIFF (AUTO) BASOPHILS/1 00 LEUKOCYTES IN BLOOD BY AUTOMATED COUNT 0.8 0.1 - 2.0 06/19 Specimen Type: BLOOD No comment entered. Ordering Provider: ALIRIO SMITH Report Released Date/Time: Jun 11, 2024 03:04 PM Reporting Lab: [facility]ENTERTRN [facility] [address] Performing Lab: [facility] [place] [address] [address] [place] CBC AND DIFF (AUTO) NEUTROPHILS [#/VOLUME] IN BLOOD BY AUTOMATED COUNT 3.21 10*3/u L 2.20 - 7.60 06/19 Specimen Type: BLOOD No comment entered. Ordering Provider: ALIRIO SMITH Report Released Date/Time: Jun 11, 2024 03:04 PM Reporting Lab: [facility] [place] [facility] [address] [facility] [address] Performing Lab: [facility] [place] [facility] [address] [facility] [address] [place] CBC AND DIFF (AUTO) LYMPHOCYTES [#/VOLUME] IN BLOOD BY AUTOMATED COUNT 1.49 10*3/u L 1.00 - 3.20 06/19 Specimen Type: BLOOD No comment entered. Ordering Provider: ALIRIO SMITH Report Released Date/Time: Jun 11, 2024 03:04 PM Reporting Lab: [facility] [place] [place] [address] [address] Performing Lab: [facility] [place] [address] [address] [place] CBC AND DIFF (AUTO) EOSINOPHILS [#/VOLUME] IN BLOOD BY AUTOMATED COUNT 0.13 10*3/u L 0.03 - 0.44 06/19 Specimen Type: BLOOD No comment entered. Ordering Provider: ALIRIO SMITH Report Released Date/Time: Jun 11, 2024 03:04 PM Reporting Lab: [facility] [place] [address] [address] Performing Lab: [facility] [place] [address] [address] [place] CBC AND DIFF (AUTO) BASOPHILS [#/VOLUME] IN BLOOD BY AUTOMATED COUNT 0.04 10*3/u L 0.01 - 0.13 06/19 Specimen Type: BLOOD No comment entered. Ordering Provider: ALRIIO SMITH Report Released Date/Time: Jun 11, 2024 03:04 PM Reporting Lab: [facility] [place] [address] [address] Performing Lab: [facility] [place] [address] [address] [place] CBC AND DIFF (AUTO) IMMATURE GRANULOCYTE S/100 LEUKOCYTES IN BLOOD BY AUTOMATED COUNT 0.6 0.0 - 0.7 06/19 Specimen Type: BLOOD No comment entered. Ordering Provider: ALIRIO SMITH Report Released Date/Time: Jun 11, 2024 03:04 PM Reporting Lab: [facility] [address] [address] Performing Lab: [facility] [place] [facility] [address] [place] CBC AND DIFF (AUTO) IMMATURE GRANULOCYTE S [#/VOLUME] IN BLOOD 0.03 10*3/u L 0.00 - 0.06 06/19 Specimen Type: BLOOD No comment entered. Ordering Provider: ALIRIO SMITH Report Released Date/Time: Jun 11, 2024 03:04 PM Reporting Lab: [facility] [address] [address] Performing Lab: [facility] [address] [address] [place] CBC AND DIFF (AUTO) NRBC % 0.0 0.0 - 0.0 06/19 Specimen Type: BLOOD No comment entered. Ordering Provider: ALIRIO SMITH Report Released Date/Time: Jun 11, 2024 03:04 PM Reporting Lab: [facility]ITAL[facility] [address] Performing Lab: [facility]ENTERTRN [facility] [address] [place] CBC AND DIFF (AUTO) NRBC, ABS 0.00 10*3/u L 0.00 - 0.00 06/19 Specimen Type: BLOOD No comment entered. Ordering Provider: ALIRIO SMITH Report Released Date/Time: Jun 11, 2024 03:04 PM Reporting Lab: [facility] [place] [facility] [address] Performing Lab: [facility] [address] [facility] [address] [facility] VITAMIN B-1 (THIAMINE )-(QU) THIAMINE [MOLES/VOLU ME] IN SERUM OR PLASMA 54 nmol/L 8 - 30 08/23 H Specimen Type: PLASMA Comment: Vitamin supplementa tion within 24 hours prior to blood draw may affect the accuracy of the results. This test was developed and its analytical performance characteris tics have been determined by [employer] [place], [place]. It has not been cleared or approved by the U.S. Food and Drug Administrat ion. This assay has been validated pursuant to the CLIA regulations and is used for clinical purposes. Test Performed by [facility], [facility], [address] [place] [address] Juan Sanchez M.D., Ph.D., Director of Laboratorie s , CLIA [id number] TEST PERFORMED AT: , Ordering Provider: ALIRIO SMITH Report Released Date/Time: Mar 15, 2023 09:07 PM Reporting Lab: [facility] [address] [facility] [address] Performing Lab: [facility] [address] [address] [facility] Vital Signs Combined list of inpatient and outpatient Vital Signs from Department of Defense and Veterans Affairs, ranging from 12 months to all on record, depending upon the facility. Vital Sign Value Date Comments Source SYSTOLIC BLOOD PRESSURE 123 06/15/2024 14:50:05 [place] DIASTOLIC BLOOD PRESSURE 71 06/15/2024 14:50:05 [place] PULSE OXIMETRY 98 06/15/2024 14:50:05 [facility] WEIGHT 184.2 06/15/2024 14:50:05 [facility] BMI 25kg/m2 06/15/2024 14:50:05 [facility] TEMPERATURE 98.6 06/15/2024 14:50:05 [facility] PULSE 66 06/15/2024 14:50:05 [facility] SYSTOLIC BLOOD PRESSURE 119 08/23/2023 10:14:03 [place] DIASTOLIC BLOOD PRESSURE 76 08/23/2023 10:14:03 [place] PULSE OXIMETRY 99 08/23/2023 10:14:03 [place] WEIGHT 179.2 08/23/2023 10:14:03 [place] BMI 24kg/m2 08/23/2023 10:14:03 [place] [facility] TEMPERATURE 98.4 08/23/2023 10:14:03 [facility] P[facility] 70 08/23/2023 10:14:03 [place] [facility] Encounters Combined list of: 1) Encounters from Department of Veterans Affairs facilities going back up to thelast 18 months. 2) Encounters from the Department of Defense facilities going back up to 280 months. Location Location Details Encounter Type Encounter Number Reason For Visit Attending Provider ADM Date DC Date Status Disposition Source [facility] [place] [facility] OFF/OP CNSLTJ NEW/EST MOD 40 [id number] Diagnos is: ICD-10- CM R25.1 Tremor, unspeci fied
MORRIS SMALL IEL Y 02/15 [facility] En[facility] [id number] 04/08 [facility] [place] En[facility] [id number] 05/03 [facility] [place] [facility] [place] [facility] CMPTR OPHTH IMG OPTIC NERVE [id number] Diagnos is: ICD-10- CM H40.013 Open angle with borderl ine finding s, low risk, bilater al
MATHEW VIZCAINO 05/21 [facility] [place] [facility] EYE EXAM&TX ESTAB PT 1/>VST [id number] Diagnos is: ICD-10- CM H40.013 Open angle with borderl ine finding s, low risk, bilater al
CARRILLO,ME DEBBIE 05/21 [facility] FIT SPECTACLES MONOFOCAL [id number] Diagnos is: ICD-10- CM Z46.0 Encount er for fit/adj st of spectac les and contact lenses< br/> MATHEW VIZCAINO 05/23 [facility] En[facility] [id number] 05/23 [facility] [place] En[facility] [id number] 05/23 [facility] OFFICE O/P EST MOD 30-39 MIN [id number] Diagnos is: ICD-10- CM R25.1 Tremor, unspeci fied
MORRIS SMALL IEL Y 05/31 [facility] En[facility] [id number] 07/08 [facility] [place] En[facility] [id number] MARGARITA MA 07/09 [facility] Encounter [id number] 07/09 [facility] Encounter [id number] CLAYTON SEAY 07/10 [facility] [place] [facility] OFF[facility] O/P EST LOW 20 MIN [id number] Diagnos is: ICD-10- CM L01.00 Impetig o, unspeci fied
CLAYTON SEAY M 07/11 [place] [facility] Outpatient Encounter [id number] 08/12 [facility] [place] [facility] [place] [facility] Outpatient Encounter [id number] 08/23 [facility] [place] [facility] O/P EST LOW 20 MIN [id number] Diagnos is: ICD-10- CM L98.9 Disorde r of the skin and subcuta neous tissue, unspeci fied
CLAYTON SEAYJORDAN Best 08/23 [place] [facility] Outpatient Encounter [id number] 11/20 [facility] [place] [facility] [place] [facility] Outpatient Encounter [id number] 12/09 [facility] [place] [facility] [place] [facility] ECHO TRANSTHORA CIC [id number] Diagnos is: ICD-10- CM I35.8 Other nonrheu matic aortic valve disorde rs
ANDREY HINOJOSA 12/17 [facility] [place] [facility] OFFICE O/P EST MOD 30 MIN [id number] Diagnos is: ICD-10- CM I10 Essenti al (primar y) hyperte nsion<b r/> Ezio LAZCANO 12/17 [facility] [place] [facility] Outpatient Encounter [id number] 03/03 [facility] [place] En[facility] [id number] [facility] [place] Encounter [id number] 05/17 [facility] [place] En[facility] [id number] 1.05/17 [facility] COMPRE OPH EXAM EST PT 1/> [id number] 1. Diagnos is: ICD-10- CM H25.813 Combine d forms of age-rel ated catarac t, bilater al
MATHEW VIZCAINO 06/11 [facility] CMPTR OPHTH IMG OPTIC NERVE [id number] Diagnos is: ICD-10- CM H40.013 Open angle with borderl ine finding s, low risk, bilater al
MATHEW VIZCAINO 06/11 [facility] En[facility] [id number] 06/11 [facility] [place] FIT SPECTACLES MONOFOCAL [id number] Diagnos is: ICD-10- CM Z46.0 Encount er for fit/adj st of spectac les and contact lenses< br/> MATHEW VIZCAINO 06/11 [facility] En[facility] [id number] 06/15 [facility] [place] [facility] O/P EST MOD 30 MIN [id number] Diagnos is: ICD-10- CM L98.9 Disorde r of the skin and subcuta neous tissue, unspeci fied
LETITIA LOWECLAYTON LESLIE 06/15 [facility] [place] Social History Combined list of available smoking, tobacco, and other social history from Department of Defense and Veterans Affairs facilities. Social History Type Response Date Comment Sourc e Tobacco smoking status [facility] VA-TOBACCO NEVER USED 08/12/2023 [facility] [place] [facility] History of tobacco use VA-TOBACCO NEVER USED 05/02/2022 [facility] [place] [facility] History of tobacco use VA-TOBACCO NEVER USED 05/16/2021 [facility] D History of tobacco use VA-TOBACCO NEVER USED 05/03/2020 [facility] D History of tobacco use VA-TOBACCO NEVER USED 10/28/2018 [facility] D History of tobacco use VA-TOBACCO NEVER USED 10/10/2017 [facility] History of tobacco use LIFETIME NON-TOBACCO USER 04/11/2017 [place] History of tobacco use LIFETIME NON-TOBACCO USER 07/04/2015 [place] History of tobacco use QUIT TOBACCO USE 1-7 YEARS AGO 08/29/2012 [facility] History of tobacco use LIFETIME NON-TOBACCO USER 06/17/2007 [place] This section is an empty social history section. DoD Plan of Care List of future care activities from Department of Veterans Affairs facilities. Additional future care activities may be listed in the Assessment and Plan section. Date/Time Care Activity Care Activity Detail Facili ty 07/22/2024 AMBULATORY - MEDICINE AMBULATORY - [place]ICI [place] [facility] [place] [facility] 06/12/2024 Consult Order COMMUNITY CARE-N EUROLOGY Cons Advertising Material Distributor's Choice [place] 06/14/2024 Laboratory - Tearoom Host/Hostess ry Order URINALYSIS URINE SP [place] 06/20/2024 Consult Order COMMUNITY CARE-U ROLOGY Cons Advertising Material Distributor's Choice [place]
--- OUTSIDE RECORDS SUMMARY | 2024-07-13 17:20 | XMS_ITS | Encounter Summary ---
Author Name [facility] [place] [facility] [place] Address [address] [place] [address] Care Team Providers Care Well Blower Name Role Phone TAVO LANDEROS Primary Care [...] Fournier's Name Patient's Relationship to Policy Fournier MEDICARE (WNR) MEDICARE (M) PART A Apr 07, 2012 PART A [id number] [phone] LARON SMITH PATIENT MEDICARE (WNR) MEDICARE (M) PART B Apr 07, 2012 PART B [id number] [phone] LARON SMITHOR PATIENT MEDICARE (WNR) MEDICARE (M) PART A Apr 07, 2012 PART A [id number] LARON SMITHOR PATIENT MEDICARE (WNR) MEDICARE (M) PART B Apr 07, 2012 PART B [id number] LARON SMITH CTOR PATIENT MEDICARE (WNR) MEDICARE (M) PART A Apr 07, 2012 PART A [id number] [phone] LARON SMITH C[place] PATIENT MEDICARE (WNR) MEDICARE (M) PART B Apr 07, 2012 PART B [id number] LARON SMITH [place] PATIENT FOR LIFE TFL* Jul 08, 2017 [id number] LARON SMITH [place] PATIENT WPS (WNR) TRICA RE TFL Apr 07, 2012 TFL [id number] LARON SMITH [place] PATIENT Selected Encounter This section includes the information on record at [place] for the Encounter. Date/Time Encounter Type Encounter Description Reason Pro vider Source November 21, 2023 12:00 PM Outpatient Encounter COMMUNITY CARE CONSULT IHE Encounter Template Text not used by CO Plan of Treatment: Future Appointments (+ 6 months) and Future Tests (+/- 45 days) The Plan of Treatment section includes future care activities for the patient from all [place] treatmentfacilities. This section includes future appointments and future orders which are active, pending or scheduled. Future Appointments This section includes appointments that were scheduled to occur 6 months from the date of the Encounter, up to a maximum of 20 appointments. The data comes from all [place] treatment facilities. Appointment Date/Time Appointment Type Appointme nt Facility Name Dec 10, 2023 01:00 PM AMBULATORY - MEDICINE [facility] Dec 18, 2023 09:45 AM AMBULATORY - NONE [facility] Mar 03, 2024 11:00 AM AMBULATORY - NONE [facility] Social History: Smoking Status (Most current) and Tobacco Use (All prior to encounter date) This section includes the most current, and the historical, smoking and tobacco- related health factors from the [place] facility where the Encounter took place. Current Smoking Status This section includes the most current smoking, or tobacco-related health factor, from the [place] facility where the Encounter took place. Date/Time Current Smoking Status Comment Ely izquierdo Aug 12, 2023 10:47 AM CO-TOBACCO NEVER USED [facility] Tobacco Use History This section includes a history of the smoking, or tobacco-related health factors, that were collected on or before the date of the Encounter. The data comes from the [place] facility where the Encounter took place. Date/Time Smoking Status/Tobacco Use Comment F acility May 02, 2022 12:18 PM VA-TOBACCO NEVER USED [facility] Encounter Notes: All associated encounter notes This section contains the clinical notes associated to the Encounter. Date/Time Encounter Note(s) Provider Source November 21, 2023 12:00 PM NONVA CONSULT: LOCAL TITLE: COMMUNITY CARE-CONSULT RESULT COLONOSCOPY STANDARD TITLE: NONVA CONSULT DATE OF NOTE: NOVEMBER 21, 2023@12:00 ENTRY DATE: DEC 16, 2023@10:27:35 AUTHOR: LOGAN OSCAR EXP COSIGNER: URGENCY: STATUS: COMPLETED VistA Imaging - Scanned Document SCANNED DOCUMENT SIGNATURE NOT REQUIRED Electronically Filed: 12/16/2023 by: LOGAN GOETZ [facility]
--- OUTSIDE RECORDS SUMMARY | 2024-07-13 17:20 | XMS_ITS | Encounter Summary ---
Author Name [facility] of Vetera Affairs ([place]) Organization [facility] of Veter[facility] ([place]) Address [address] [place] [address] Care Team Providers Care Lurer Name Role Phone TAVO LANDEROS Primary Care [...] Policy Fournier's Name Patient's Relationship to Policy Forunier MEDICARE (WNR) MEDICARE (M) PART A Apr 07, 2012 PART A [id number] LARON SMITH PATIENT MEDICARE (WNR) MEDICARE (M) PART B Apr 07, 2012 PART B [id number] LARON SMITH PATIENT MEDICARE (WNR) MEDICARE (M) PART A Apr 07, 2012 PART A [id number] [phone] LARON SMITH PATIENT MEDICARE (WNR) MEDICARE (M) PART B Apr 07, 2012 PART B [id number] LARON SMITH CTOR PATIENT MEDICARE (WNR) MEDICARE (M) PART A Apr 07, 2012 PART A [id number] LARON SMITH CTOR PATIENT MEDICARE (WNR) MEDICARE (M) PART B Apr 07, 2012 PART B [id number] [phone] LARON SMITH CTOR PATIENT FOR LIFE TFL* Jul 08, 2017 [id number] LARON SMITH CTOR PATIENT WPS (WNR) TRICA RE TFL Apr 07, 2012 TFL [id number] LARON SMITH CTOR PATIENT Selected Encounter This section includes the information on record at OR for the Encounter. Date/Time Encounter Type Encounter Description Reason Provider Source Dec 18, 2023 09:45 AM ECHO TRANSTHORACIC CARDIAC ECHO ICD-10-CM I35.8 Other nonrheumatic aortic valve disorders IRMA HINOJOSA [facility] Encounter Template Text not used by OR Assessments - Encounter Diagnoses This section includes the primary and secondary diagnoses documented for the Encounter. Date/Time Primary/Secondary Diagnosis Diagnosis Name Provider Source Dec 18, 2023 10:02 AM PRIMARY Other nonrheumatic aortic valve disorders IRMA HINOJOSA [facility] Plan of Treatment: Future Appointments (+ 6 months) and Future Tests (+/- 45 days) The Plan of Treatment section includes future care activities for the patient from all OR treatmentfacilities. This section includes future appointments and future orders which are active, pending or scheduled. Future Appointments This section includes appointments that were scheduled to occur 6 months from the date of the Encounter, up to a maximum of 20 appointments. The data comes from all [place] treatment facilities. Appointment Date/Time Appointment Type Appointme nt Facility Name Mar 03, 2024 11:00 AM AMBULATORY - NONE [place] [facility] [place] [facility] Jun 11, 2024 09:30 AM AMBULATORY - MEDICINE OR [facility] [place] [facility] Jun 11, 2024 10:30 AM AMBULATORY - MEDICINE OR [facility] [place] [facility] Jun 15, 2024 02:30 PM AMBULATORY - MEDICINE [facility] Jun 17, 2024 12:30 PM [facility] Social History: Smoking Status (Most current) and Tobacco Use (All prior to encounter date) This section includes the most current, and the historical, smoking and tobacco- related health factors from the [place] facility where the Encounter took place. Current Smoking Status This section includes the most current smoking, or tobacco-related health factor, from the [place] facility where the Encounter took place. Date/Time Current Smoking Status Comment Ely izquierdo Aug 12, 2023 10:47 AM VA-TOBACCO NEVER USED [facility] Tobacco Use History This section includes a history of the smoking, or tobacco-related health factors, that were collected on or before the date of the Encounter. The data comes from the OR facility where the Encounter took place. Date/Time Smoking Status/Tobacco Use Comment Nawaf nazario May 02, 2022 12:18 PM VA-TOBACCO NEVER USED [facility] Encounter Notes: All associated encounter notes This section contains the clinical notes associated to the Encounter. Date/Time Encounter Note(s) Provider Source Dec 18, 2023 12:09 PM CARDIOLOGY PROCEDURE NOTE: LOCAL TITLE: CP CARDIOLOGY ECHO STANDARD TITLE: CARDIOLOGY PROCEDURE NOTE DATE OF NOTE: DEC 18, 2023@12:09:52 ENTRY DATE: DEC 18, 2023@12:09:52 AUTHOR: CLINICAL,DEVICE PRO EXP COSIGNER: URGENCY: STATUS: COMPLETED PROCEDURE SUMMARY CODE: Machine Resulted DATE/TIME PERFORMED: DEC 18, 2023@09:26:5 DOCUMENT IN VISTA IMAGING SEE FULL REPORT IN VISTA IMAGING SIGNATURE NOT REQUIRED SEE SIGNATURE IN VISTA IMAGING (XCELERA (ADULT)) AUTO-INSTRUMENT DIAGNOSIS Procedure: Interop Interop Administrative Closure: 12/18/2023 by: Clinical,Device Proxy Service CLINICAL,DEVICE PROXY SERVICE [facility] Dec 18, 2023 12:09 PM CARDIOLOGY PROCEDURE NOTE: LOCAL TITLE: CP CARDIOLOGY ECHO STANDARD TITLE: CARDIOLOGY PROCEDURE NOTE DATE OF NOTE: DEC 18, 2023@12:09:42 ENTRY DATE: DEC 18, 2023@12:09:42 AUTHOR: CLINICAL,DEVICE PRO EXP COSIGNER: URGENCY: STATUS: COMPLETED PROCEDURE SUMMARY CODE: Machine Resulted DATE/TIME PERFORMED: DEC 18, 2023@09:26:5 DOCUMENT IN VISTA IMAGING SEE FULL REPORT IN VISTA IMAGING SIGNATURE NOT REQUIRED SEE SIGNATURE IN VISTA IMAGING (XCELERA (ADULT)) AUTO-INSTRUMENT DIAGNOSIS Procedure: Interop Interop Administrative Closure: 12/18/2023 by: Clinical,Device Proxy Service CLINICAL,DEVICE PROXY SERVICE [facility] Dec 18, 2023 10:01 AM CARDIOLOGY DIAGNOSTIC STUDY NOTE: LOCAL TITLE: ECHOCARDIOGRAM REPORT STANDARD TITLE: CARDIOLOGY DIAGNOSTIC STUDY NOTE DATE OF NOTE: DEC 18, 2023@10:01 ENTRY DATE: DEC 18, 2023@10:01:35 AUTHOR: ANDREY HINOJOSA EXP COSIGNER: URGENCY: STATUS: COMPLETED DATE ECHOCARDIOGRAM PERFOMED: Dec ECHOCARDIOLOGY DENTAL OFFICE RECEPTIONIST: KRISTIN Hull, JEREMIE Procedure was performed without incident. The Study transmitted to [facility] via [employer] system for interpretation by leather goods assembler. When interpretation is complete, results can be found under [employer]. /lele/ JEREMIE LEE Signed: 12/18/2023 10:02 ANDREY HINOJOSA [facility]
--- OUTSIDE RECORDS SUMMARY | 2024-07-13 17:20 | XMS_ITS | Encounter Summary ---
Author Name [facility] [place] Organization [facility] [place] Address [address] [place] [address] Care Team Providers Care Dietician Name Role Phone TAVO LANDEROS Primary Care [...] PART A Apr 07, 2012 PART A [id number] [phone] LARON SMITH PATIENT MEDICARE (WNR) MEDICARE (M) PART B Apr 07, 2012 PART B [id number] LARON SMITH CTOR PATIENT MEDICARE (WNR) MEDICARE (M) PART B Apr 07, 2012 PART B [id number] LARON SMITH CTOR PATIENT MEDICARE (WNR) MEDICARE (M) PART A Apr 07, 2012 PART A [id number] [phone] LARON SMITH CTOR PATIENT MEDICARE (WNR) MEDICARE (M) PART A Apr 07, 2012 PART A [id number] LARON SMITH CTOR PATIENT MEDICARE (WNR) MEDICARE (M) PART B Apr 07, 2012 PART B [id number] [phone] LARON SMITH CTOR PATIENT FOR LIFE TFL* Jul 08, 2017 [id number] LARON SMITH CTOR PATIENT WPS (WNR) TRICA RE TFL Apr 07, 2012 TFL [id number] [phone] LARON SMITH CTOR PATIENT Selected Encounter This section includes the information on record at [place] for the Encounter. Date/Time Encounter Type Encounter Description Reason Pro vider Source Aug 23, 2023 12:00 AM Outpatient Encounter EVENT (HISTORICAL) IHE Encounter Template Text not used by [place] Plan of Treatment: Future Appointments (+ 6 months) and Future Tests (+/- 45 days) The Plan of Treatment section includes future care activities for the patient from all [place] treatmentfacilities. This section includes future appointments and future orders which are active, pending or scheduled. Future Appointments This section includes appointments that were scheduled to occur 6 months from the date of the Encounter, up to a maximum of 20 appointments. The data comes from all [place] treatment facilities. Appointment Date/Time Appointment Type Appointme nt Facility Name November 21, 2023 09:00 AM AMBULATORY - NONE [facility] Dec 10, 2023 01:00 PM AMBULATORY - MEDICINE [facility] Dec 18, 2023 09:45 AM AMBULATORY - NONE [facility] Lab Results: +/- 30 days of the encounter This section includes the Chemistry and Hematology Lab Results on record with [place] for the patient. Radiology Reports and Pathology Reports are provided separately, in subsequent sections. Lab Results This section contains the Chemistry/Hematology Results that were resulted 30 days before or 30 daysafter the date of the Encounter. Date/Time Source Result Type Result - Unit Interpretation Reference Range Comment Aug 23, 2023 11:[address] [facility] VITAMIN B-1 (THIAMINE)-(QU) Specimen Ty pe: PLASMA Comment: Vitamin supplementation within 24 hours prior to blood draw may affect the accuracy of the results. This test was developed and its analytical performance characteristics have been determined by [facility] [place]. It has not been cleared or approved by the U.S. Food and Drug Administration. This assay has been validated pursuant to the CLIA regulations and is used for clinical purposes. Test Performed by [facility], [facility], [address] [place], [place] Juan Sanchez M.D., Ph.D., Director of Laboratories , CLIA [id number] TEST PERFORMED AT: , Ordering Provider: TAVO ROSAS Report Released Date/Time: Mar 15, 2023 09:07 PM Reporting Lab: [address] [address] Performing Lab: [facility] [address] [address] VITAMIN B-1 (THIAMINE)-( QU) 54 nmol/L H 8-30 Aug 23, 2023 11:27 [address] [facility] VITAMIN B12 Specimen Type: SERUM No comment entered. Ordering Provider: TAVO ROSAS Report Released Date/Time: Mar 15, 2023 09:07 PM Reporting Lab: [facility] [address] [facility] [address] Performing Lab: [address] [address] VITAMIN B12 956 pg/mL H 200-900 Aug 23, 2023 11:27 AM [facility] CBC Specimen Type: BLOOD No comment entered. Ordering Provider: TAVO ROSAS Report Released Date/Time: Mar 15, 2023 09:07 PM Reporting Lab: [address] [address] Performing Lab: [address] [address] WBC 5.33 10*3/uL 4.50-11.00 RBC 5.73 10*6/uL H 4.23-5.66 HGB 13.2 g/dL 12.8-17 HCT 43.0 39.2-50.4 MCV 75.0 fL L 82-99 MCHC 30.7 g/dL L 30.8-35.1 PLT 199 10*3/uL 140-360 RDW-CV 15.9 12.0-16.0 MCH 23.0 pg L 26.2-32.6 Aug 23, 2023 11:[address] [facility] SYPHILIS ABS W/RFLX Specimen Type: SERUM Comment: No laboratory evidence of syphilis infection. If recent exposure is suspected, re-draw sample in 2-4 weeks and repeat algorithm. Testing performed by T. pallidum specific immunoassay. Ordering Provider: TAVO ROSAS Report Released Date/Time: Aug 23, 2023 11:15 AM Reporting Lab: [facility] [address] [facility] [address] Performing Lab: [facility] [address] [facility] [address] SYPHILIS ABS W/RFLX Non Reactive Non Reactive Aug 23, 2023 11:[address] [facility] HEPATITIS C ANTIBODY (HCV)-ARC Specimen Type: SERUM Comment: Hep C Ab: No HCV antibody detected. If recent infection is suspected or other evidence suggests HCV infection, consider HCV nucleic acid testing Ordering Provider: TAVO ROSAS Report Released Date/Time: Aug 23, 2023 11:15 AM Reporting Lab: [address] [address] Performing Lab: [facility] [address] [facility] [address] HEPATITIS C ANTIBODY NON-REACTIVE NON-REACTIVE Aug 23, 2023 11:27 [address] [facility] HIV 1&2 Ag/Ab SCREEN Specimen Type: SERUM No comment entered. Ordering Provider: TAVO ROSAS Report Released Date/Time: Aug 23, 2023 11:15 AM Reporting Lab: [address] [address] Performing Lab: [address] [address] HIV 1&2 Ag/Ab SCREEN NON-REACTIVE Nonreactive Aug 23, 2023 11:[address]/GC DNA PANEL(IN-HOUSE) Specimen Type : URINE Comment: Test performed on the [employer] Genexpert. A negative test results does not exclude the possibility of infection because results may be affected by improper specimen collection, concurrent antibiotic therapy, or the number of organisms in the specimen which may be below the sensitivity of the test. Ordering Provider: TAVO ROSAS Report Released Date/Time: Aug 23, 2023 11:15 AM Reporting Lab: [address] [address] Performing Lab: [address] [address] GC PCR NOT DETECTED Not Detected CT PCR NOT DETECTED Not Detected Aug 19, 2023 10:[address] [facility] VITAMIN B-1 (THIAMINE)-(QU) Specimen Ty pe: PLASMA Comment: Vitamin supplementation within 24 hours prior to blood draw may affect the accuracy of the results. This test was developed and its analytical performance characteristics have been determined by [facility] [place]. It has not been cleared or approved by the U.S. Food and Drug Administration. This assay has been validated pursuant to the CLIA regulations and is used for clinical purposes. Test Performed by [facility], [facility], [address] [place] [address] Juan Sanchez M.D., Ph.D., Director of Laboratories , CLIA [id number] TEST PERFORMED AT: , Ordering Provider: TAVO ROSAS Report Released Date/Time: Jul 11, 2023 10:17 AM Reporting Lab: [address] [address] Performing Lab: [facility] [address] [place] [address] VITAMIN B-1 (THIAMINE)-( QU) 42 nmol/L H 8-30 Aug 19, 2023 10:[address] [facility] VITAMIN B12 Specimen Type: SERUM No comment entered. Ordering Provider: TAVO ROSAS Report Released Date/Time: Jul 11, 2023 10:17 AM Reporting Lab: [facility] [address] [address] Performing Lab: [facility] [address] [address] VITAMIN B12 868 pg/mL 200-900 Aug 19, 2023 10:49 [address] [facility] PSA Specimen Type: SERUM No comment entered. Ordering Provider: TAVO ROSAS Report Released Date/Time: Jul 11, 2023 10:17 AM Reporting Lab: [facility] [address] [address] Performing Lab: [facility] [address] [address] PSA 3.73 ng/mL 0.00-4.00 Aug 19, 2023 10:49 [address] [facility] LIVER FUNCTION Specimen Type: SERUM No comment entered. Ordering Provider: TAVO ROSAS Report Released Date/Time: Jul 11, 2023 10:17 AM Reporting Lab: [facility] [address] [address] Performing Lab: [facility] [address] [address] PROTEIN,TOTA L 6.4 g/dL 6.0-8.3 ALBUMIN 4.1 g/dL 3.5-5.0 ALKALINE PHOSPHATASE 66 U/L 40-150 AST 12 U/L 5-34 ALT 12 U/L BILIRUBIN, TOTAL 0.6 mg/dL 0.2-1.2 Aug 19, 2023 10:[address] [facility] BASIC METABOLIC PANEL (fasting) Specime n Type: SERUM No comment entered. Ordering Provider: TAVO ROSAS Report Released Date/Time: Jul 11, 2023 10:17 AM Reporting Lab: [facility] [address] Performing Lab: [address] [address] UREA NITROGEN 8 mg/dL 7-25 GLUCOSE 87 mg/dL 65-100 SODIUM 141 mmol/L 135-145 POTASSIUM 4.6 mmol/L 3.5-5.0 CHLORIDE 109 mmol/L 100-110 CO2 24 meq/L 20-30 CREATININE, Serum 0.97 mg/dL 0.50-1.40 eGFR(CKD-EPI 2020) 84 mL/min >60 Aug 19, 2023 10:49 [address] [facility] CBC AND DIFF (AUTO) Specimen Type: BLOOD No comment entered. Ordering Provider: TAVO ROSAS Report Released Date/Time: Jul 11, 2023 10:17 AM Reporting Lab: [address] [address] Performing Lab: [address] [address] WBC 5.20 10*3/uL 4.50-11.00 RBC 5.67 10*6/uL H 4.23-5.66 HGB 12.9 g/dL 12.8-17 HCT 42.5 39.2-50.4 MCV 75.0 fL L 82-99 MCHC 30.4 g/dL L 30.8-35.1 PLT 202 10*3/uL 140-360 RDW-CV 15.9 12.0-16.0 [place], Abs 0.45 10*3/uL 0.30-1.10 MCH 22.8 pg L 26.2-32.6 Neut % 63.6 43.7-75.8 Lymph % 24.6 14.0-42.3 [place] % 8.7 5.1-13.7 Eos % 2.1 0.4-6.8 Baso % 0.6 0.1-2.0 Neut, Abs 3.31 10*3/uL 2.20-7.60 Lymph, Abs 1.28 10*3/uL 1.00-3.20 Eos, Abs 0.11 10*3/uL 0.03-0.44 Baso, Abs 0.03 10*3/uL 0.01-0.13 Immature Gran % 0.4 0.0-0.7 Immature Gran, Abs 0.02 10*3/uL 0.00-0.06 Social History: Smoking Status (Most current) and Tobacco Use (All prior to encounter date) This section includes the most current, and the historical, smoking and tobacco- related health factors from the [place] facility where the Encounter took place. Current Smoking Status This section includes the most current smoking, or tobacco-related health factor, from the [place] facility where the Encounter took place. Date/Time Current Smoking Status Comment Ely izquierdo Aug 12, 2023 10:47 AM VA-TOBACCO NEVER USED [facility] Tobacco Use History This section includes a history of the smoking, or tobacco-related health factors, that were collected on or before the date of the Encounter. The data comes from the [place] facility where the Encounter took place. Date/Time Smoking Status/Tobacco Use Comment F acneal May 02, 2022 12:18 PM VA-TOBACCO NEVER USED [facility]
--- OUTSIDE RECORDS SUMMARY | 2024-07-13 17:20 | XMS_ITS | Encounter Summary ---
Author Name [facility] [place] Organization [place] Address [address] [place] [address] Care Team Providers Care [employer] Instruments Inspector Name Role Phone TAVO LANDEROS Primary Care [...] PART A Apr 07, 2012 PART A [id number] [phone] LARON SMITH PATIENT MEDICARE (WNR) MEDICARE (M) PART B Apr 07, 2012 PART B [id number] LARON SMITH PATIENT MEDICARE (WNR) MEDICARE (M) PART A Apr 07, 2012 PART A [id number] LARON SMITH PATIENT MEDICARE (WNR) MEDICARE (M) PART B Apr 07, 2012 PART B [id number] [phone] LARON SMITH CTOR PATIENT MEDICARE (WNR) MEDICARE (M) PART A Apr 07, 2012 PART A [id number] [facility] LARON SMITH CTOR PATIENT MEDICARE (WNR) MEDICARE (M) PART B Apr 07, 2012 PART B [id number] [facility] LARON SMITH CTOR PATIENT FOR LIFE TFL* Jul 08, 2017 [id number] LARON SMITH CTOR PATIENT WPS (WNR) TRICA RE TFL Apr 07, 2012 TFL [id number] [phone] LARON SMITH CTTALIA PATIENT Selected Encounter This section includes the information on record at CT for the Encounter. Date/Time Encounter Type Encounter Description Reason Provider Source Dec 18, 2023 12:04 PM OFFICE O/P EST MOD 30 MIN CARDIAC ECHO ICD-10-CM I10 Essential (primary) hypertension HOLLI LAZCANO [facility] Encounter Template Text not used by CT Assessments - Encounter Diagnoses This section includes the primary and secondary diagnoses documented for the Encounter. Date/Time Primary/Secondary Diagnosis Diagnosis Name Provider Source Dec 18, 2023 12:08 PM PRIMARY Essential (primary) hypertension HOLLI LAZCANO [facility] Plan of Treatment: Future Appointments (+ 6 months) and Future Tests (+/- 45 days) The Plan of Treatment section includes future care activities for the patient from all [place] treatmentfacilities. This section includes future appointments and future orders which are active, pending or scheduled. Future Appointments This section includes appointments that were scheduled to occur 6 months from the date of the Encounter, up to a maximum of 20 appointments. The data comes from all [place] treatment facilities. Appointment Date/Time Appointment Type Appointme nt Facility Name Mar 03, 2024 11:00 AM AMBULATORY - NONE [place] [facility] [place] [facility] Jun 11, 2024 09:30 AM AMBULATORY - MEDICINE CT [facility] [place] [facility] Jun 11, 2024 10:30 AM AMBULATORY - MEDICINE [facility] [place] [facility] Jun 15, 2024 02:30 PM [facility] Jun 17, 2024 12:30 PM AMBULATORY - MEDICINE CT [facility] [place] [facility] Encounter Notes: All associated encounter notes This section contains the clinical notes associated to the Encounter. Date/Time Encounter Note(s) Provider Source Dec 18, 2023 12:04 PM MENTAL HEALTH CONS ULT: LOCAL TITLE: [facility] STANDARD TITLE: MENTAL HEALTH CONSULT DATE OF NOTE: DEC 18, 2023@12:04 ENTRY DATE: DEC 18, 2023@12:04:13 AUTHOR: JUDD LAZCANO EXP COSIGNER: URGENCY: STATUS: COMPLETED Remote echocardiogram read completed. Report available in [employer]. /es/ JUDD LAZCANO Signed: 12/18/2023 12:08 JUDD LAZCANO [facility]
--- OUTSIDE RECORDS SUMMARY | 2024-07-13 17:20 | XMS_ITS | Encounter Summary ---
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 Name Role Phone TAVO LANDEROS Primary Care [...] PART A Apr 07, 2012 PART A [id number] LARON SMITH PATIENT MEDICARE (WNR) MEDICARE (M) PART B Apr 07, 2012 PART B [id number] LARON SMITH CTOR PATIENT MEDICARE (WNR) MEDICARE (M) PART A Apr 07, 2012 PART A [id number] [phone] LARON SMITH CTOR PATIENT MEDICARE (WNR) MEDICARE (M) PART B Apr 07, 2012 PART B [id number] LARON SMITH CTOR PATIENT MEDICARE (WNR) MEDICARE (M) PART A Apr 07, 2012 PART A [id number] [phone] LARON SMITH CTOR PATIENT MEDICARE (WNR) MEDICARE (M) PART B Apr 07, 2012 PART B [id number] LARON SMITH CTOR PATIENT FOR LIFE TFL* Jul 08, 2017 [id number] LARON SMITH CTOR PATIENT WPS (WNR) TRICA RE TFL Apr 07, 2012 TFL [id number] LARON SMITH CTOR PATIENT Selected Encounter This section includes the information on record at [place] for the Encounter. Date/Time Encounter Type Encounter Description Reason Pro vider Source Aug 12, 2023 10:47 AM Outpatient Encounter PRIMARY CARE/MEDICINE IHE Encounter Template Text not used by [...] Date/Time Appointment Type Appointme nt Facility Name Aug 23, 2023 10:00 AM AMBULATORY - MEDICINE [facility] November 21, 2023 09:00 AM AMBULATORY - NONE [facility] Dec 10, 2023 01:00 PM AMBUL[facility]ORY - MEDICINE [facility] Dec 18, 2023 09:45 AM AMBULATORY [facility] Lab Results: +/- 30 days of the encounter This section includes the Chemistry and Hematology Lab Results on record with [place] for the patient. Radiology Reports and Pathology Reports are provided separately, in subsequent sections. Lab Results This section contains the Chemistry/Hematology Results that were resulted 30 days before or 30 daysafter the date of the Encounter. Date/Time Source Result Type Result - Unit Interpretation Reference Range Comment Aug 23, 2023 11:27 AM [facility] VITAMIN B-1 (THIAMINE)-(QU) Specimen Ty pe: PLASMA Comment: Vitamin supplementation within 24 hours prior to blood draw may affect the accuracy of the results. This test was developed and its analytical performance characteristics have been determined by [facility] [place], [place]. It has not been cleared or approved by the U.S. Food and Drug Administration. This assay has been validated pursuant to the CLIA regulations and is used for clinical purposes. Test Performed by [facility], [facility], [address] [place], [place] Juan Sanchez M.D., Ph.D., Director of Laboratories , CLIA [id number] TEST PERFORMED AT: , Ordering Provider: TAVO ROSAS Report Released Date/Time: Mar 15, 2023 09:07 PM Reporting Lab: [address] [address] Performing Lab: [facility] [address] [address] VITAMIN B-1 (THIAMINE)-( QU) 54 nmol/L H 8-30 Aug 23, 2023 11:27 AM [facility] VITAMIN B12 Specimen Type: SERUM No comment entered. Ordering Provider: TAVO ROSAS Report Released Date/Time: Mar 15, 2023 09:07 PM Reporting Lab: [address] [address] Performing Lab: [address] [address] VITAMIN B12 956 pg/mL H 200-900 Aug 23, 2023 11:27 AM [facility] CBC Specimen Type: BLOOD No comment entered. Ordering Provider: TAVO ROSAS Report Released Date/Time: Mar 15, 2023 09:07 PM Reporting Lab: [address] [address] Performing Lab: [address] [address] WBC 5.33 10*3/uL 4.50-11.00 RBC 5.73 10*6/uL H 4.23-5.66 HGB 13.2 g/dL 12.8-17 HCT 43.0 39.2-50.4 MCV 75.0 fL L 82-99 MCHC 30.7 g/dL L 30.8-35.1 PLT 199 10*3/uL 140-360 RDW-CV 15.9 12.0-16.0 MCH 23.0 pg L 26.2-32.6 Aug 23, 2023 11:27 AM [facility] SYPHILIS ABS W/RFLX Specimen Type: SERUM Comment: No laboratory evidence of syphilis infection. If recent exposure is suspected, re-draw sample in 2-4 weeks and repeat algorithm. Testing performed by T. pallidum specific immunoassay. Ordering Provider: TAVO ROSAS Report Released Date/Time: Aug 23, 2023 11:15 AM Reporting Lab: [facility] [address] [facility] [address] Performing Lab: [facility] [address] [facility] [address] SYPHILIS ABS W/RFLX Non Reactive Non Reactive Aug 23, 2023 11:27 AM [facility] HEPATITIS C ANTIBODY (HCV)-ARC Specimen Type: SERUM Comment: Hep C Ab: No HCV antibody detected. If recent infection is suspected or other evidence suggests HCV infection, consider HCV nucleic acid testing Ordering Provider: TAVO ROSAS Report Released Date/Time: Aug 23, 2023 11:15 AM Reporting Lab: [facility] [address] [facility] [address] Performing Lab: [address] [address] HEPATITIS C ANTIBODY NON-REACTIVE NON-REACTIVE Aug 23, 2023 11:27 AM [facility] HIV 1&2 Ag/Ab SCREEN Specimen Type: SERUM No comment entered. Ordering Provider: TAVO ROSAS Report Released Date/Time: Aug 23, 2023 11:15 AM Reporting Lab: [address] [address] Performing Lab: [facility] [address] [facility] [address] HIV 1&2 Ag/Ab SCREEN NON-REACTIVE Nonreactive Aug 23, 2023 11:[address] [place] [address]/GC DNA PANEL(IN-HOUSE) Specimen Type : URINE Comment: Test performed on the [employer] Genexpert. A negative test results does not exclude the possibility of infection because results may be affected by improper specimen collection, concurrent antibiotic therapy, or the number of organisms in the specimen which may be below the sensitivity of the test. Ordering Provider: TAVO ROSAS Report Released Date/Time: Aug 23, 2023 11:15 AM Reporting Lab: [address] [address] Performing Lab: [address] [address] GC PCR NOT DETECTED Not Detected CT PCR NOT DETECTED Not Detected Aug 19, 2023 10:49 AM [facility] VITAMIN B-1 (THIAMINE)-(QU) Specimen Ty pe: PLASMA Comment: Vitamin supplementation within 24 hours prior to blood draw may affect the accuracy of the results. This test was developed and its analytical performance characteristics have been determined by [facility] [place], [place]. It has not been cleared or approved by the U.S. Food and Drug Administration. This assay has been validated pursuant to the CLIA regulations and is used for clinical purposes. Test Performed by [facility], [facility], [address] [place] [address] Juan Sanchez M.D., Ph.D., Director of Laboratories , CLIA [id number] TEST PERFORMED AT: , Ordering Provider: TAVO ROSAS Report Released Date/Time: Jul 11, 2023 10:17 AM Reporting Lab: [address] [address] Performing Lab: [facility] [address] [place] [address] VITAMIN B-1 (THIAMINE)-( QU) 42 nmol/L H 8-30 Aug 19, 2023 10:49 AM [facility] VITAMIN B12 Specimen Type: SERUM No comment entered. Ordering Provider: TAVO ROSAS Report Released Date/Time: Jul 11, 2023 10:17 AM Reporting Lab: [facility] [address] [facility] [address] Performing Lab: [address] [address] VITAMIN B12 868 pg/mL 200-900 Aug 19, 2023 10:49 AM [facility] PSA Specimen Type: SERUM No comment entered. Ordering Provider: TAVO ROSAS Report Released Date/Time: Jul 11, 2023 10:17 AM Reporting Lab: [facility] [address] [facility] [address] Performing Lab: [address] [address] PSA 3.73 ng/mL 0.00-4.00 Aug 19, 2023 10:49 AM [facility] LIVER FUNCTION Specimen Type: SERUM No comment entered. Ordering Provider: TAVO ROSAS Report Released Date/Time: Jul 11, 2023 10:17 AM Reporting Lab: [address] [address] Performing Lab: [address] [address] PROTEIN,TOTA L 6.4 g/dL 6.0-8.3 ALBUMIN 4.1 g/dL 3.5-5.0 ALKALINE PHOSPHATASE 66 U/L 40-150 AST 12 U/L 5-34 ALT 12 U/L BILIRUBIN, TOTAL 0.6 mg/dL 0.2-1.2 Aug 19, 2023 10:49 AM [facility] BASIC METABOLIC PANEL (fasting) Specime n Type: SERUM No comment entered. Ordering Provider: TAVO ROSAS Report Released Date/Time: Jul 11, 2023 10:17 AM Reporting Lab: [place] [address] [address] Performing Lab: [address] [address] UREA NITROGEN 8 mg/dL 7-25 GLUCOSE 87 mg/dL 65-100 SODIUM 141 mmol/L 135-145 POTASSIUM 4.6 mmol/L 3.5-5.0 CHLORIDE 109 mmol/L 100-110 CO2 24 meq/L 20-30 CREATININE, Serum 0.97 mg/dL 0.50-1.40 eGFR(CKD-EPI 2020) 84 mL/min >60 Aug 19, 2023 10:49 AM [facility] CBC AND DIFF (AUTO) Specimen Type: BLOOD No comment entered. Ordering Provider: TAVO ROSAS Report Released Date/Time: Jul 11, 2023 10:17 AM Reporting Lab: [address] [address] Performing Lab: [address] [address] WBC 5.20 10*3/uL 4.50-11.00 RBC 5.67 10*6/uL H 4.23-5.66 HGB 12.9 g/dL 12.8-17 HCT 42.5 39.2-50.4 MCV 75.0 fL L 82-99 MCHC 30.4 g/dL L 30.8-35.1 PLT 202 10*3/uL 140-360 RDW-CV 15.9 12.0-16.0 [place], Abs 0.45 10*3/uL 0.30-1.10 MCH 22.8 pg L 26.2-32.6 Neut % 63.6 43.7-75.8 Lymph % 24.6 14.0-42.3 [place] % 8.7 5.1-13.7 Eos % 2.1 0.4-6.8 [...] place. Date/Time Current Smoking Status Comment Ely diezy Aug 12, 2023 10:47 AM [place] [facility] USED [place] [facility] Tobacco Use History This section includes a history of the smoking, or tobacco-related health factors, that were collected on or before the date of the Encounter. The data comes from the [place] facility where the Encounter took place. Date/Time Smoking Status/Tobacco Use Comment F acneal May 02, 2022 12:18 PM [place]-TOBACCO NEVER USED [facility] Encounter Notes: All associated encounter notes This section contains the clinical notes associated to the Encounter. Date/Time Encounter Note(s) Provider Source Aug 12, 2023 10:47 AM [facility]VENT[facility] MEDICIN E NURSING NOTE: LOCAL TITLE: CLINICAL REMINDERS/NURSING STANDARD TITLE: PREVENTIVE MEDICINE NURSING NOTE DATE OF NOTE: AUG 12, 2023@10:47 ENTRY DATE: AUG 12, 2023@10:47:47 AUTHOR: ELINOR URIBE EXP COSIGNER: URGENCY: STATUS: COMPLETED CONTACTED AND REMINDED OF UPCOMING APPT, AND THE NEED FOR FASTING LABS PRIOR TO APPT. Depression Screening: Perform PHQ-2 A PHQ-2 screen was performed. The score was 0 which is a negative screen for depression. Over the past two weeks, how often have you been bothered by the following problems? 1. Little interest or pleasure in doing things Not at all 2. Feeling down, depressed, or hopeless Not at all Homelessness/Food Insecurity Screen: In the past 2 months, have you been living in stable housing that you own, rent, or stay in as part of a household? Yes - Living in stable housing. Are you worried or concerned that in the next 2 months you may NOT have stable housing that you own, rent, or stay in as part of a household? No - Not worried about housing near future The reports the following: Within the past 12 months, you worried whether your food would run out before you got money to buy more. Never true Within the past 12 months, the food you bought just didn't last and you didn't have money to get more. Never true PTSD Screening: PC-PTSD-5 A PTSD screening test (PC-PTSD-5) was negative (score=0). IN THE PAST MONTH, have you ever had any experience that was so frightening, horrible or traumatic. For example: A serious accident or fire a physical or sexual assault or abuse An earthquake or flood A war Seeing someone be killed or seriously injured Having a loved one through homicide or suicide 1. Have you ever experienced this kind of event? NO 2. Had nightmares about the event(s) or thought about the event(s) when you did not want to? Response not required due to responses to other questions. 3. Tried hard not to think about the event(s) or went out of your way to avoid situations that reminded you of the event(s)? Response not required due to responses to other questions. 4. Been constantly on guard, watchful, or easily startled? Response not required due to responses to other questions. 5. [place] numb or detached from people, activities, or your surroundings? Response not required due to responses to other questions. 6. [place] guilty or unable to stop blaming yourself or others for the event(s) or any problems the event(s) may have caused? Response not required due to responses to other questions. Tobacco Use Screening: The patient has never used tobacco. Influenza Immunization: The patient has received the seasonal influenza vaccine for the current season at another location. Documented: INFLUENZA, UNSPECIFIED FORMULATION Historical Date Administered: Jul 2023 Exact date unknown Information Source: SOURCE UNSPECIFIED Alcohol Use Screen (AUDIT-C): Alcohol Screen: SCREEN FOR ALCOHOL (AUDIT-C) An alcohol screening test (AUDIT-C) was negative (score=0). 1. How often did you have a drink containing alcohol in the past year? Consider a drink to be a 12 ounce can or bottle of regular beer, 8 ounces of malt liquor, a 5 ounce glass of table wine, or a 1.5 ounce shot of liquor (like scotch, gin, or vodka). Never 2. How many drinks containing alcohol did you have on a typical day when you were drinking in the past year? Response not required due to responses to other questions. 3. How often did you have six or more drinks on one occasion in the past year? Response not required due to responses to other questions. Sexual Orientation: The patient thinks of their sexual orientation as: Straight or Heterosexual RHS Screen: RHS Screen Session Format: Face to Face Environmental Check Upon inquiry, the individual reports that the environment is safe to proceed. Informed Consent to Screen and Document The individual consents to proceed with screening. The individual consents to documentation of responses. PRIMARY SCREEN: In the past 12 months, how often did a current or former intimate partner (e.g., boyfriend, girlfriend, , , sexual partner): 1. Scream or curse at you Never 2. Insult or talk down to you Never 3. Threaten you with harm Never 4. Physically hurt you Never 5. Force or pressure you to have sexual contact against your will, or when you were unable to say no Never ?? The HITS tool (items 1-4 above) is [place] copyright protected by Stan Huynh MD, and the user has full rights to use it throughout the [place] system. PRIMARY SCREEN RESULT: The Primary Screen is NEGATIVE. The individual answered never to all forms of IPV above (i.e., answered never to all 5 items) The individual accepts education and/or resources: No EDUCATION: The individual indicated readiness to learn. Education offered during this session as noted above. The individual indicated understanding by asking relevant questions and making appropriate comments. No barriers to learning were observed or identified. Suicide Screen: C-SSRS Screening [place] Suicide Severity Rating Scale (C-SSRS) screener 1. Over the past month, have you wished you were or wished you could go to sleep and not wake up? No 2. Over the past month, have you had any actual thoughts of killing yourself? No 3. Over the past month, have you been thinking about how you might do this? Response not required due to responses to other questions. 4. Over the past month, have you had these thoughts and had some intention of acting on them? Response not required due to responses to other questions. 5. Over the past month, have you started to work out or worked out the details of how to kill yourself? Response not required due to responses to other questions. 6. If yes, at any time in the past month did you intend to carry out this plan? Response not required due to responses to other questions. 7. In your lifetime, have you ever done anything, started to do anything, or prepared to do anything to end your life (for example, collected pills, obtained a gun, gave away valuables, went to the roof but didn't jump)? No 8. If YES, was this within the past 3 months? Response not required due to responses to other questions. Advance Directive Screen MH AD: Patient has an up-to-date Advance Directive at an outside, non-[facility] facility and was asked to forward a copy to his/her clinician. Comment: advised to bring copy /llee/ ELINOR URIBE LPN LPN Signed: 08/12/2023 10:51 ELINOR URIBE
--- OUTSIDE RECORDS SUMMARY | 2024-07-13 17:20 | XMS_ITS | Encounter Summary ---
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 LARON SMITH CTOR PATIENT MEDICARE (WNR) MEDICARE (M) PART A Apr 07, 2012 PART A [id number] [facility] [phone] LARON SMITH CTOR PATIENT FOR LIFE TFL* Jul 08, 2017 [id number] [phone] LARON SMITH CTOR PATIENT WPS (WNR) TRICA RE TFL Apr 07, 2012 TFL [id number] LARON SMITH CTTALIA PATIENT Selected Encounter This section includes the information on record at [place] for the Encounter. Date/Time Encounter Type Encounter Description Reason Provider Source Aug 23, 2023 10:00 AM OFFICE O/P EST LOW 20 MIN PRIMARY CARE/MEDICINE ICD-10-CM L98.9 Disorder of the skin and subcutaneous tissue, unspecified TAVO TAPIA Onesimo Encounter Template Text not used by [place] Assessments - Encounter Diagnoses This section includes the primary and secondary diagnoses documented for the Encounter. Date/Time Primary/Secondary Diagnosis Diagnosis Name Provider Source Aug 26, 2023 04:30 PM PRIMARY Disorder of the skin and subcutaneous tissue, unspecified TAVO DYER [place] Aug 26, 2023 04:30 PM SECONDARY Elevated prostate specific antigen [PSA] TAVO DYER [place] Aug 26, 2023 04:30 PM SECONDARY Nonrheumatic aortic (valve) stenosis with insufficiency TAVO DYER [place] Aug 26, 2023 04:30 PM SECONDARY Other specified forms of tremor TAVO DYER [place] Aug 26, 2023 04:30 PM SECONDARY Personal history of colonic polyps TAVO DYER [place] Aug 26, 2023 04:30 PM SECONDARY Personal history of other diseases of urinary system TAVO DYER [place] Aug 26, 2023 04:30 PM SECONDARY Radiculopathy, lumbar region TAVO DYER [place] Aug 26, 2023 04:30 PM SECONDARY Thiamine deficiency, unspecified PARAM HARRISTAVO [place] Aug 26, 2023 04:30 PM SECONDARY Vitamin B12 deficiency anemia, unspecified PARAM HARRISCLAYTONGamalielBRIGITTECOLIN Best [place] Plan of Treatment: Future Appointments (+ 6 months) and Future Tests (+/- 45 days) The Plan of Treatment section includes future care activities for the patient from all [place] treatmentfacilities. This section includes future appointments and future orders which are active, pending or scheduled. Future Appointments This section includes appointments that were scheduled to occur 6 months from the date of the Encounter, up to a maximum of 20 appointments. The data comes from all [place] treatment facilities. Appointment Date/Time Appointment Type Appointme nt Facility Name November 21, 2023 09:00 AM AMBULATORY - NONE [facility] Dec 10, 2023 01:00 PM AMBULATORY - MEDICINE [facility] Dec 18, 2023 09:45 AM AMBULATORY - NONE [facility] Lab Results: +/- 30 days of the encounter This section includes the Chemistry and Hematology Lab Results on record with [place] for the patient. Radiology Reports and Pathology Reports are provided separately, in subsequent sections. Lab Results This section contains the Chemistry/Hematology Results that were resulted 30 days before or 30 daysafter the date of the Encounter. Date/Time Source Result Type Result - Unit Interpretation Reference Range Comment Aug 23, 2023 11:27 AM [place] VITAMIN B-1 (THIAMINE)-(QU) Specimen Ty pe: PLASMA Comment: Vitamin supplementation within 24 hours prior to blood draw may affect the accuracy of the results. This test was developed and its analytical performance characteristics have been determined by [facility] [place], [place]. It has not been cleared or approved by the U.S. Food and Drug Administration. This assay has been validated pursuant to the CLIA regulations and is used for clinical purposes. Test Performed by Carlos Perry, [facility] [place], [address] [place] [address] Juan Sanchez M.D., Ph.D., Director of Laboratories , CLIA [id number] TEST PERFORMED AT: , Ordering Provider: TAVO ROSAS Report Released Date/Time: Mar 15, 2023 09:07 PM Reporting Lab: [facility] [address] [address] Performing Lab: [facility] [address] [address] VITAMIN B-1 (THIAMINE)-( QU) 54 nmol/L H 8-30 Aug 23, 2023 11:27 AM [place] VITAMIN B12 Specimen Type: SERUM No comment entered. Ordering Provider: TAVO ROSAS Report Released Date/Time: Mar 15, 2023 09:07 PM Reporting Lab: [facility] [address] [address] Performing Lab: [address] [address] VITAMIN B12 956 pg/mL H 200-900 Aug 23, 2023 11:27 AM [place] CBC Specimen Type: BLOOD No comment entered. Ordering Provider: TAVO ROSAS Report Released Date/Time: Mar 15, 2023 09:07 PM Reporting Lab: [facility] [address] [address] Performing Lab: [address] [address] WBC 5.33 10*3/uL 4.50-11.00 RBC 5.73 10*6/uL H 4.23-5.66 HGB 13.2 g/dL 12.8-17 HCT 43.0 39.2-50.4 MCV 75.0 fL L 82-99 MCHC 30.7 g/dL L 30.8-35.1 PLT 199 10*3/uL 140-360 RDW-CV 15.9 12.0-16.0 MCH 23.0 pg L 26.2-32.6 Aug 23, 2023 11:27 AM [place] SYPHILIS ABS W/RFLX Specimen Type: SERUM Comment: No laboratory evidence of syphilis infection. If recent exposure is suspected, re-draw sample in 2-4 weeks and repeat algorithm. Testing performed by Gustavo pallidum specific immunoassay. Ordering Provider: TAVO ROSAS Report Released Date/Time: Aug 23, 2023 11:15 AM Reporting Lab: [facility] [address] [address] Performing Lab: [facility] [address] [facility] [address] SYPHILIS ABS W/RFLX Non Reactive Non Reactive Aug 23, 2023 11:27 AM [place] HEPATITIS C ANTIBODY (HCV)-ARC Specimen Type: SERUM Comment: Hep C Ab: No HCV antibody detected. If recent infection is suspected or other evidence suggests HCV infection, consider HCV nucleic acid testing Ordering Provider: TAVO ROSAS Report Released Date/Time: Aug 23, 2023 11:15 AM Reporting Lab: [facility] [address] [facility] [address] Performing Lab: [facility] [address] [facility] [address] HEPATITIS C ANTIBODY NON-REACTIVE NON-REACTIVE Aug 23, 2023 11:27 AM [place] HIV 1&2 Ag/Ab SCREEN Specimen Type: SERUM No comment entered. Ordering Provider: TAVO ROSAS Report Released Date/Time: Aug 23, 2023 11:15 AM Reporting Lab: [facility] [address] [facility] [address] Performing Lab: [facility] [address] [facility] [address] HIV 1&2 Ag/Ab SCREEN NON-REACTIVE Nonreactive Aug 23, 2023 11:[address] [place] [address]/GC DNA PANEL(IN-HOUSE) Specimen Type : URINE Comment: Test performed on the [employer] Genexpert. A negative test results does not exclude the possibility of infection because results may be affected by improper specimen collection, concurrent antibiotic therapy, or the number of organisms in the specimen which may be below the sensitivity of the test. Ordering Provider: TAVO ROSAS Report Released Date/Time: Aug 23, 2023 11:15 AM Reporting Lab: [address] [address] Performing Lab: [address] [address] GC PCR NOT DETECTED Not Detected CT PCR NOT DETECTED Not Detected Aug 19, 2023 10:49 AM [place] VITAMIN B-1 (THIAMINE)-(QU) Specimen Ty pe: PLASMA Comment: Vitamin supplementation within 24 hours prior to blood draw may affect the accuracy of the results. This test was developed and its analytical performance characteristics have been determined by [facility] [facility] [place], [place]. It has not been cleared or approved by the U.S. Food and Drug Administration. This assay has been validated pursuant to the CLIA regulations and is used for clinical purposes. Test Performed by [facility], [facility], [address] [place] [address] Juan Sanchez M.D., Ph.D., Director of Laboratories , CLIA [id number] TEST PERFORMED AT: , Ordering Provider: TAVO ROSAS Report Released Date/Time: Jul 11, 2023 10:17 AM Reporting Lab: [address] [address] Performing Lab: [facility] [address] [address] VITAMIN B-1 (THIAMINE)-( QU) 42 nmol/L H 8-30 Aug 19, 2023 10:49 AM [place] VITAMIN B12 Specimen Type: SERUM No comment entered. Ordering Provider: TAVO ROSAS Report Released Date/Time: Jul 11, 2023 10:17 AM Reporting Lab: [address] [address] Performing Lab: [address] [address] VITAMIN B12 868 pg/mL 200-900 Aug 19, 2023 10:49 AM [place] PSA Specimen Type: SERUM No comment entered. Ordering Provider: TAVO ROSAS Report Released Date/Time: Jul 11, 2023 10:17 AM Reporting Lab: [address] [address] Performing Lab: [address] [address] PSA 3.73 ng/mL 0.00-4.00 Aug 19, 2023 10:49 AM [place] LIVER FUNCTION Specimen Type: SERUM No comment entered. Ordering Provider: TAVO ROSAS Report Released Date/Time: Jul 11, 2023 10:17 AM Reporting Lab: [address] [address] Performing Lab: [address] [address] PROTEIN,TOTA L 6.4 g/dL 6.0-8.3 ALBUMIN 4.1 g/dL 3.5-5.0 ALKALINE PHOSPHATASE 66 U/L 40-150 AST 12 U/L 5-34 ALT 12 U/L BILIRUBIN, TOTAL 0.6 mg/dL 0.2-1.2 Aug 19, 2023 10:49 AM [place] BASIC METABOLIC PANEL (fasting) Specime n Type: SERUM No comment entered. Ordering Provider: TAVO ROSAS Report Released Date/Time: Jul 11, 2023 10:17 AM Reporting Lab: [address] [address] Performing Lab: [address] [address] UREA NITROGEN 8 mg/dL 7-25 GLUCOSE 87 mg/dL 65-100 SODIUM 141 mmol/L 135-145 POTASSIUM 4.6 mmol/L 3.5-5.0 CHLORIDE 109 mmol/L 100-110 CO2 24 meq/L 20-30 CREATININE, Serum 0.97 mg/dL 0.50-1.40 eGFR(CKD-EPI 2020) 84 mL/min >60 Aug 19, 2023 10:49 AM [place] CBC AND DIFF (AUTO) Specimen Type: BLOOD No comment entered. Ordering Provider: TAVO ROSAS Report Released Date/Time: Jul 11, 2023 10:17 AM Reporting Lab: [facility] [address] [address] Performing Lab: [facility] [address] [address] WBC 5.20 10*3/uL 4.50-11.00 RBC 5.67 10*6/uL H 4.23-5.66 HGB 12.9 g/dL 12.8-17 HCT 42.5 39.2-50.4 MCV 75.0 fL L 82-99 MCHC 30.4 g/dL L 30.8-35.1 PLT 202 10*3/uL 140-360 RDW-CV 15.9 12.0-16.0 Rich, Abs 0.45 10*3/uL 0.30-1.10 MCH 22.8 pg L 26.2-32.6 Neut % 63.6 43.7-75.8 Lymph % 24.6 14.0-42.3 Rich % 8.7 5.1-13.7 Eos % 2.1 0.4-6.8 Baso % 0.6 0.1-2.0 Neut, Abs 3.31 10*3/uL 2.20-7.60 Lymph, Abs 1.28 10*3/uL 1.00-3.20 Eos, Abs 0.11 10*3/uL 0.03-0.44 Baso, Abs 0.03 10*3/uL 0.01-0.13 Immature Gran % 0.4 0.0-0.7 Immature Gran, Abs 0.02 10*3/uL 0.00-0.06 Vital Signs: All taken on the encounter date This section contains inpatient and outpatient Vital Signs collected on the date of the Encounter. Date/Time Temperature Pulse Blood Pressure Respiratory Rate SP02 Pain Height Weight Body Mass Index Source Aug 23, 2023 10:14 AM 98.4 70 119/76 99 179.2 24 [place] Social History: Smoking Status (Most current) and Tobacco Use (All prior to encounter date) This section includes the most current, and the historical, smoking and tobacco- related health factors from the [facility] where the Encounter took place. Current Smoking Status This section includes the most current smoking, or tobacco-related health factor, from the [place] facility where the Encounter took place. Date/Time Current Smoking Status Comment Ely izquierdo May 16, 2021 11:00 AM VA-TOBACCO NEVER USED [place] Tobacco Use History This section includes a history of the smoking, or tobacco-related health factors, that were collected on or before the date of the Encounter. The data comes from the [place] facility where the Encounter took place. Date/Time Smoking Status/Tobacco Use Comment F acility May 03, 2020 11:30 AM VA-TOBACCO NEVER USED [place] Oct 28, 2018 02:37 PM VA-TOBACCO NEVER USED [place] Oct 10, 2017 10:47 AM VA-TOBACCO NEVER USED [place] Apr 11, 2017 10:29 AM LIFETIME NON-TOBACCO USER [place] Jul 04, 2015 03:40 PM LIFETIME NON-TOBACCO USER [place] Jun 17, 2007 09:21 AM LIFETIME NON-TOBACCO USER [place] Encounter Notes: All associated encounter notes This section contains the clinical notes associated to the Encounter. Date/Time Encounter Note(s) Provider Source May 23, 2024 09:58 AM ADDENDUM: LOCAL TITLE: Addendum STANDARD TITLE: ADDENDUM DATE OF NOTE: MAY 23, 2024@09:58:18 ENTRY DATE: MAY 23, 2024@09:58:20 AUTHOR: Basil LANDEROS COSIGNER: URGENCY: STATUS: COMPLETED Could you please obtain colonoscopy report, we have only received pathology results. [facility] February 2024 Thank you /lele/ TAVO LANDEROS MD PHYSICIAN Signed: 05/23/2024 09:59 Receipt Acknowledged By: 05/25/2024 11:00 /lele/ TOÑA MARTINEZ AMSA --- Original Document --- 08/23/23 NOTE: Pt is 68 y/o M with PMH of bicuspid AV, chronic intermittent scrotal pain, BPH, elevated PSA, hematuria Last visit 12/2022 PCP is [place] Other providers: -- [facility] Harish Hicks MD prostate Bx 05/2021 benign --[facility] --cardiology [facility] last 08/2022 --[facility]urology [facility] 02/2023 Reports feeling well #impetigo -see previous note for more details Has been resolved with mupirocin Patient using chlorhexidine as instructed #New penile lesion 1.5 cm erythematous macular lesion at the cortez Developed overnight, noted several weeks ago-not getting worse-unchanged Denies pain itching No discharge He tried mupirocin without effect Sexually active with his girlfriend of many years No concern for sexually transmitted disease #h/o elevated PSA -TRUS bx 05/2021 benign normalized PSA 3.7 denies any urinary sx , no pain with ejaculation #bicuspid valve- monitor with ECHO q2-3y 2020 c/o atypical chest discomfort-cardiology work up negative denies CP, presycnope, SOB, LOVE #L hand resting tremor - started years ago - now affecting R hand as well h/o orthostatin hypotension some memory decline - displacing things no speech/swallowing issues ambulates with a cane due to LBP Patient very concerned because he is two brothers dx with Parkinson's disease PROPRANOLOL HCL 20MG BID ESSENTIAL TREMOR --> tried it for 3 days and stopped due to sleepiness - did not notice any imporvement in tremor Vitamins B12, B1 repleted w/o inprovement is Sx #LBP - much improved since last time - back to baseline PAST MEDICAL HISTORY: -- Overweight -- Dizziness - MRI/MRA brain carotid US in the past unremarkable -- Orthostatic Hypotension -- TIA -- Non-cardiac chest pain ETT 11/2017 - 100% MPHR at high functional capacity w/o chest pain or LOVE no diagnostic evidence of ischemia by ECG, no sustained arrhythmias -- Congenitally bicuspid aortic valve with mild mixed stenosis-insufficiency documented in 2010 and stable in 2020 --headache resolved - MRI/MRA 2021-mild diffuse volume loss and CIMD -- Chronic prostatitis -- Raised PSA -2013 Prostate BX -mild chronic inflamation -2020 Prostate BX -benign -- Varicocele -- Small L hydrocele -- Male hypogonadism -- ED -- Alpha thalassemia trait -- Acne -- Herpes Genitalis and Oral Mucosa -- B12 deficiency -- B1 deficiency -- Dermatitis, Atopic -- Open Angle Glaucoma Suspect -- Dry Eye Syndromes -- Arthralgia -- Osteoarthritis -- Backache -- herniated disc -- Major Depressive Disorder -- Insomnia PAST SURGICAL HISTORY: -- lipoma excision - arms/thing/abdomen ALLERGIES:BACTRIM-DS MEDICATIONS: -Non-VA ASPIRIN 81MG PROPRANOLOL HCL 20MG BID ESSENTIAL TREMOR --> tried it for 3 days and stopped due to sleepiness - did not find it helpful -CYANOCOBALAMIN 1000MCG -THIAMINE 100MG -LIDOCAINE 5% PATCH FAMILY HISTORY: --DM:no --Cancer: no --KS:Brother: 51 [place] --CVA:no --Mental Health/addiction: parkinson's - two brothers --Other:Mother: 80's MVA, HTN, SOCIAL HISTORY: --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 --Cohabitation:was x 45+ yrs, now, lives with his GF --Children: 2 biological, 3 adopted --Diet: well balanced , a lot of salad, vegetables, rice --Exercise: walking 30 min daily --EtOH:none --Tob: never smoked --MJ:daily hs for sleep --Illicits:denies --Sexual activity: 1 partner in last year, female- no regular condom use, --Eye: UTD [facility] --Dental: UTD --Hospitalizations: none recently ROS: Constitutional: no fever/no chills, no ns Respiratory: no cough/wheezing/SOB Cardiovascular: no CP/no palpitations/le edema Gastrointestinal: no abdominal pain/bloody/black stools, n/v/c/d :no dysuria/hematuria/hesitancy +, nocturia 2x Skin: pruritus/rash as above PHYSICAL EXAM: Vital Signs: Blood Pressure: 119/76 (08/23/2023 10:14) 119/77 (05/16/2021 11:01) 115/73 (06/11/2022 14:36) 107/66 (12/20/2022 09:00) Pulse: 70 (08/23/2023 10:14) Respiration: 18 Temperature: 98.4 F [36.9 C] (08/23/2023 10:14) Weight: BMI 24 179.2 lb [81.28 kg] (08/23/2023 10:14) 185.2 lb [84.01 kg] (12/20/2022 09:00) 186.6 lb [84.64 kg] (06/11/2022 14:36) 182 lb [82.7 kg] (05/16/2021 11:01) 179.3 lb [81.5 kg] (05/03/2020 11:26) GA: pt is alert and oriented. NAD DERM: tattoes, piercings + penile skin lesion: 1.5 cm erythematous macular lesion at the cortez CVS: RRR Lungs: CTA b/l abd: bs+, nt, nd Neuro: grossly intact LABORATORY: VIT. B12 (WROX): 956 H NG PCR: NOT DETECTED CT PCR: NOT DETECTED HIV Ag/Ab COMBO: NON-REACTIVE HEPATITIS C AB: NON-REACTIVE BLOOD Aug 19 Dec 20 May 10 May 11 Reference 2023 2022 2021 2020 WBC 5.20 5.00 4.99 4.92 K/cmm 4.5 - 11 HGB 12.9 14.2 12.7 L 13.2 g/dL 12.8 - 17 HCT 42.5 46.7 41.2 43.5 % 39.2 - 50.4 MCV 75.0 L 75.0 L 73.3 L 75.8 L fl 82 - 99 PLT 202 189 178 171 K/cmm 140 - 360 GLUCOSE: 87 UREA NITROGEN: 8 CREATININE-EGFR: 0.97 eGFR CKD-EPI 2020: 84 SODIUM: 141 POTASSIUM: 4.6 CHLORIDE: 109 CO2: 24 PROTEIN,TOTAL: 6.4 ALBUMIN: 4.1 ALKALINE PHOSPHATASE: 66 BILIRUBIN,TOT.: 0.6 SGOT: 12 SGPT: 12 VIT. B12 (WROX): 868 SERUM Feb Dec 20 May 10 Apr 10 Reference 2023 2022 2021 2020 PSA 3.73 3.05 3.22 6.85 H ng/mL 0 - 4 ---02/2023---- TRANSFERRIN SATURATION: 33.0 TIBC (WROX): 248 IRON (WROX): 82 VIT. B12 (WROX): 191 L VIT B1 (QU): <6 L HGB A1C (WR): 5.1 CHOLESTEROL: 155 TRIGLYCERIDE: 72 LDL CHOL: 99 CHOL/HDL RATIO: 3.7 HDL: 42 TSH (Access): 0.80 U/A negative OCCULT BLOOD(FIT) #1 OF 1: Negative --2021-- MICROALB/CR RATIO: 6.1 MICROALBUMIN URINE: 1.3 CREATININE URINE: 214.07 IMAGING: #CT a/p 03/2020 no nephrolithiasis #EKG 10/2020 NSR at 75 bpm #ECHO 12/2020 Congenitally bicuspid aortic valve with no more than mild mixed stenosis- insufficiency; mean systolic gradient under 15 mm Hg and area over 2 sq cm. Normal sized aortic root and ascending aorta. NVSF LVEF 65%. Borderline LVH #zio patch 14d 03/2021 Basic rhythm is sinus at an average rate in the 70s, (40s - 140s) No pauses or heart block. Low burden of ectopy, but no actionable arrhythmias. #06/2022 MRI brain /MRA head 1. there are no acute bleeds, infarcts or masses/ 2. mild diffuse volume loss and chronic microvascular ischemic changes 3. MRA intracranial cicrulation w/o aneurysm, focal stenosis or vascular malformation. #12/2022 XR LS Multilevel mild to moderate degenerative changes to the lumbar spine most prominent at the L2-3 level. intervertebral disc space narrowing, vertebral endplate sclerosis and anterior osteophytosis throughout the visualized thoracic and the entire lumbar spine consistent with degenerative disc disease. grade 1 retrolisthesis of L2 on L3 with overall straightening of the normal lumbar spine lordosis, likely secondary to pain, positioning or the degenerative disc disease changes within the lumbar spine. The vertebral heights are normal. There is mild lower lumbar spine facet joint hypertrophic change. The bony mineralization is normal. No bony fracture, dislocation or subluxation is identified. ASSESSMENT/PLAN: Pt is 68 y/o M with PMH of bicuspid AV, chronic intermittent scrotal pain, BPH, elevated PSA, hematuria #penile lesion: Unclear etiology -Trial of topical steroid and clotrimazole In case of worsening symptoms or failing to resolve will refer to dermatology #resting tremor: -[facility] -Trial of propranolol-in case of improvement likely ET ->pt tried BB for 3 days only - no imporvemnt in sx- self dc/d due to ADR (sleepipness) B1, B12 repleted w/o improvement in sx -> referral to neurology -> ? early PD (strong family h/o PD) #bicuspid AV stable -ECHO 12/2020, surveillance q2-3 y due now, pt denies any CP, LOVE, syncope -c/w ASA -will obtain ECHO #lumbar radiculopathy: not bothersome at this time XR LS 12/2022 Multilevel mild to moderate degenerative changes most prominent at the L2-3 level. -Meloxicam prn (SE reviewed with pt) -lidocaine patch -Fall precautions #h/o hematuria: Asymptomatic -03/[address] A/P and cystoscopy was negative 04/2020 u/a negative 02/2023 #h/o elevated PSA -> normalized psa 3.7 (08/2023) prostate Bx in 2014 negative - he was treated for chronic prostatitis in the past TRUS Bx 05/2021 benign #B12 deficiency,B1 deficiency: Normalized on supplementation Healthcare maintenance: --Lipids: LDL 99 (12/2022) --Diabetes: A1C 5.1 (12/2022) --Colon CA (50-75): due 07/2023 -- History of polyp of colon -- August 01, 2007 [facility] -- 07/2018 2x TA -- 12/2022 FIT negative --Lung CA: n/a --PSA PSA 3.7 (08/2023) --AAA (smoker/65): n/a --Influenza (yrly): 07/2023 --moderna covid x3 --PCV20 2021 --PCV23: 2019 --RZV (>50yrs, x2): --TDAP: 2020 --Hep C screen: 2020 neg --HIV screen: 2020 neg --DEXA: --Advanced Directives: Return to clinic to see me in 6 months, sooner PRN. Virtual ( ), F2F ( x ) ( x)fasting labs ordered prior to f/u --Please place referral to neurology for evaluation of resting tremor, strong family history of Parkinson's --please p0ace referral to GI for colonoscopy . thanks History of polyp of colon August 01, 2007 [facility] 07/2018 2x TA Follow Up Colonoscopy: Colonoscopy is due based on information available to this reminder. A colonoscopy is currently scheduled or in process of being scheduled. Medication Reconciliation: Outpatient: Has the patient been taking medications as documented in the EMLR? YES: The patient has been taking medications as documented in the EMLR. Essential Medication List for Review used to complete this medication reconciliation. INCLUDED IN THIS LIST: Alphabetical list of active outpatient prescriptions dispensed from this [place] (local) and dispensed from another [place] or DoD facility (remote) as well as inpatient orders [...] whether with a VA or non-VA provider. /lele/ TAVO LANDEROS MD PHYSICIAN Signed: 08/26/2023 16:30 Receipt Acknowledged By: 08/27/2023 12:02 /lele/ CLINTON AMADOR RN REGISTERED NURSE 09/01/2023 ADDENDUM STATUS: COMPLETED --08/2023-- WBC: 5.33 RBC: 5.73 H HGB: 13.2 HCT: 43.0 MCV: 75.0 L MCHC: 30.7 L RDW: 15.9 PLT: 199 MCH: 23.0 L VIT B1 (QU): 54 H VIT. B12 (WROX): 956 H NG PCR: NOT DETECTED CT PCR: NOT DETECTED RPR AUTO: Non Reactive HIV Ag/Ab COMBO: NON-REACTIVE HEPATITIS C AB: NON-REACTIVE /lele/ TAVO LANDEROS MD PHYSICIAN Signed: 09/01/2023 22:44 12/21/2023 ADDENDUM STATUS: COMPLETED #ECHO 12/2023 Normal left and right ventricular size and normal systolic function LVEF 65% Normal diastolic function for age Aortic sclerosis with no aortic stenosis, with mild AR (AV not well visualized) No significant pericardial effusion /lele/ TAVO LANDEROS MD PHYSICIAN Signed: 12/21/2023 13:22 ALIRIO LANDEROS [facility] Sep 01, 2023 11:17 PM LETTERS: LOCAL TITLE: PATIENT LETTER (B) STANDARD TITLE: LETTERS DATE OF NOTE: SEP 01, 2023@23:17 ENTRY DATE: SEP 01, 2023@23:17:40 AUTHOR: Basil LANDEROS EXP COSIGNER: URGENCY: STATUS: COMPLETED SEP 01, 2023 DEVORA GAXIOLA [address], [place], [address] Dear DEVORA SMITH, Thank you for coming in for your lab tests. Your recent test results are as follows: 1. You can stop taking vitamin B1 2. Decrease vitamin B12 to 500 mcg daily. 3. STD testing negative. LAB CHEMISTRY & HEMATOLOGY Collection DT Specimen Test Name Result Units Ref Range 08/23/2023 11:27 BLOOD WBC 5.33 K/cmm 4.50 - 11.00 RBC 5.73 H M/cmm 4.23 - 5.66 HGB 13.2 g/dL 12.8 - 17 HCT 43.0 % 39.2 - 50.4 MCV 75.0 L fl 82 - 99 MCH 23.0 L pg 26.2 - 32.6 MCHC 30.7 L g/dL 30.8 - 35.1 RDW-CV 15.9 % 12.0 - 16.0 PLT 199 K/cmm 140 - 360 08/23/2023 11:27 PLASMA!! VITB-1 PL-LP-FRZ 54 H nmol/L 8 - 30 08/23/2023 11:27 SERUM VITAMIN B12 956 H pg/mL 200 - 900 08/23/2023 11:27 URINE !! GC PCR NOT DETECTED Ref: Not Detected !! CT PCR NOT DETECTED Ref: Not Detected 08/23/2023 11:27 SERUM !! SYPHYAbs SR-REF Non Reactive Ref: Non Reactive 08/23/2023 11:27 SERUM HIV Ag/Ab NON-REACTIVE Ref: Nonreactive 08/23/2023 11:27 SERUM !! HCV AB NON-REACTIVE Ref: NON-REACTIVE \ If you do not already do so, going forward, I invite you to view your labs in [employer]. If you are not able to view them, you might need to upgrade your account to premium. Please call [phone] and speak with my nurse Clinton if you have any questions or concerns. Sincerely, Tavo Cannon MD [facility] - [facility] Care [address] [place] [id number] [phone] [facility] Aug 23, 2023 10:00 AM PHYSICIAN NOTE: LOCAL TITLE: NOTE STANDARD TITLE: PHYSICIAN NOTE DATE OF NOTE: AUG 23, 2023@10:00 ENTRY DATE: AUG 22, 2023@:42:44 AUTHOR: Basil LANDEROS EXP COSIGNER: URGENCY: STATUS: COMPLETED NOTE Has ADDENDA Pt is 68 y/o M with PMH of bicuspid AV, chronic intermittent scrotal pain, BPH, elevated PSA, hematuria Last visit 12/2022 PCP is [place] Other providers: -- [facility] Harish Hicks MD prostate Bx 05/2021 benign [facility] 08[facility]22 --[facility] 02/2023 Reports feeling well #impetigo -see previous note for more details Has been resolved with mupirocin Patient using chlorhexidine as instructed #New penile lesion 1.5 cm erythematous macular lesion at the cortez Developed overnight, noted several weeks ago-not getting worse-unchanged Denies pain itching No discharge He tried mupirocin without effect Sexually active with his girlfriend of many years No concern for sexually transmitted disease #h/o elevated PSA -TRUS bx 05/2021 benign normalized PSA 3.7 denies any urinary sx , no pain with ejaculation #bicuspid valve- monitor with ECHO q2-3y 2020 c/o atypical chest discomfort-cardiology work up negative denies CP, presycnope, SOB, LOVE #L hand resting tremor - started years ago - now affecting R hand as well h/o orthostatin hypotension some memory decline - displacing things no speech/swallowing issues ambulates with a cane due to LBP Patient very concerned because he is two brothers dx with Parkinson's disease PROPRANOLOL HCL 20MG BID ESSENTIAL TREMOR --> tried it for 3 days and stopped due to sleepiness - did not notice any imporvement in tremor Vitamins B12, B1 repleted w/o inprovement is Sx #LBP - much improved since last time - back to baseline PAST MEDICAL HISTORY: -- Overweight -- Dizziness - MRI/MRA brain carotid US in the past unremarkable -- Orthostatic Hypotension -- TIA -- Non-cardiac chest pain ETT 11/2017 - 100% MPHR at high functional capacity w/o chest pain or LOVE no diagnostic evidence of ischemia by ECG, no sustained arrhythmias -- Congenitally bicuspid aortic valve with mild mixed stenosis-insufficiency documented in 2010 and stable in 2020 --headache resolved - MRI/MRA 2021-mild diffuse volume loss and CIMD -- Chronic prostatitis -- Raised PSA -2013 Prostate BX -mild chronic inflamation -2020 Prostate BX -benign -- Varicocele -- Small L hydrocele -- Male hypogonadism -- ED -- Alpha thalassemia trait -- Acne -- Herpes Genitalis and Oral Mucosa -- B12 deficiency -- B1 deficiency -- Dermatitis, Atopic -- Open Angle Glaucoma Suspect -- Dry Eye Syndromes -- Arthralgia -- Osteoarthritis -- Backache -- herniated disc -- Major Depressive Disorder -- Insomnia PAST SURGICAL HISTORY: -- lipoma excision - arms/thing/abdomen ALLERGIES:BACTRIM-DS MEDICATIONS: -Non-VA ASPIRIN 81MG PROPRANOLOL HCL 20MG BID ESSENTIAL TREMOR --> tried it for 3 days and stopped due to sleepiness - did not find it helpful -CYANOCOBALAMIN 1000MCG -THIAMINE 100MG -LIDOCAINE 5% PATCH FAMILY HISTORY: --DM:no --Cancer: no --KS:Brother: 51 [place] --CVA:no --Mental Health/addiction: parkinson's - two brothers --Other:Mother: 80's MVA, HTN, SOCIAL HISTORY: --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 --Cohabitation:was x 45+ yrs, now, lives with his GF --Children: 2 biological, 3 adopted --Diet: well balanced , a lot of salad, vegetables, rice --Exercise: walking 30 min daily --EtOH:none --Tob: never smoked --MJ:daily hs for sleep --Illicits:denies --Sexual activity: 1 partner in last year, female- no regular condom use, --Eye: UTD [facility] --Dental: UTD --Hospitalizations: none recently ROS: Constitutional: no fever/no chills, no ns Respiratory: no cough/wheezing/SOB Cardiovascular: no CP/no palpitations/le edema Gastrointestinal: no abdominal pain/bloody/black stools, n/v/c/d :no dysuria/hematuria/hesitancy +, nocturia 2x Skin: pruritus/rash as above PHYSICAL EXAM: Vital Signs: Blood Pressure: 119/76 (08/23/2023 10:14) 119/77 (05/16/2021 11:01) 115/73 (06/11/2022 14:36) 107/66 (12/20/2022 09:00) Pulse: 70 (08/23/2023 10:14) Respiration: 18 Temperature: 98.4 F [36.9 C] (08/23/2023 10:14) Weight: BMI 24 179.2 lb [81.28 kg] (08/23/2023 10:14) 185.2 lb [84.01 kg] (12/20/2022 09:00) 186.6 lb [84.64 kg] (06/11/2022 14:36) 182 lb [82.7 kg] (05/16/2021 11:01) 179.3 lb [81.5 kg] (05/03/2020 11:26) GA: pt is alert and oriented. NAD DERM: tattoes, piercings + penile skin lesion: 1.5 cm erythematous macular lesion at the cortez CVS: RRR Lungs: CTA b/l abd: bs+, nt, nd Neuro: grossly intact LABORATORY: VIT. B12 (WROX): 956 H NG PCR: NOT DETECTED CT PCR: NOT DETECTED HIV Ag/Ab COMBO: NON-REACTIVE HEPATITIS C AB: NON-REACTIVE BLOOD Aug 19 Dec 20 May 10 May 11 Reference 2023 2022 2021 2020 WBC 5.20 5.00 4.99 4.92 K/cmm 4.5 - 11 HGB 12.9 14.2 12.7 L 13.2 g/dL 12.8 - 17 HCT 42.5 46.7 41.2 43.5 % 39.2 - 50.4 MCV 75.0 L 75.0 L 73.3 L 75.8 L fl 82 - 99 PLT 202 189 178 171 K/cmm 140 - 360 GLUCOSE: 87 UREA NITROGEN: 8 CREATININE-EGFR: 0.97 eGFR CKD-EPI 2020: 84 SODIUM: 141 POTASSIUM: 4.6 CHLORIDE: 109 CO2: 24 PROTEIN,TOTAL: 6.4 ALBUMIN: 4.1 ALKALINE PHOSPHATASE: 66 BILIRUBIN,TOT.: 0.6 SGOT: 12 SGPT: 12 VIT. B12 (WROX): 868 SERUM Aug 19 Dec 20 May 10 Apr 10 Reference 2023 2022 2021 2020 PSA 3.73 3.05 3.22 6.85 H ng/mL 0 - 4 ---02/2023---- TRANSFERRIN SATURATION: 33.0 TIBC (WROX): 248 IRON (WROX): 82 VIT. B12 (WROX): 191 L VIT B1 (QU): <6 L HGB A1C (WR): 5.1 CHOLESTEROL: 155 TRIGLYCERIDE: 72 LDL CHOL: 99 CHOL/HDL RATIO: 3.7 HDL: 42 TSH (Access): 0.80 U/A negative OCCULT BLOOD(FIT) #1 OF 1: Negative --2021-- MICROALB/CR RATIO: 6.1 MICROALBUMIN URINE: 1.3 CREATININE URINE: 214.07 IMAGING: #CT a/p 03/2020 no nephrolithiasis #EKG 10/2020 NSR at 75 bpm #ECHO 12/2020 Congenitally bicuspid aortic valve with no more than mild mixed stenosis- insufficiency; mean systolic gradient under 15 mm Hg and area over 2 sq cm. Normal sized aortic root and ascending aorta. NVSF LVEF 65%. Borderline LVH #zio patch 14d 03/2021 Basic rhythm is sinus at an average rate in the 70s, (40s - 140s) No pauses or heart block. Low burden of ectopy, but no actionable arrhythmias. #06/2022 MRI brain /MRA head 1. there are no acute bleeds, infarcts or masses/ 2. mild diffuse volume loss and chronic microvascular ischemic changes 3. MRA intracranial cicrulation w/o aneurysm, focal stenosis or vascular malformation. #12/2022 XR LS Multilevel mild to moderate degenerative changes to the lumbar spine most prominent at the L2-3 level. intervertebral disc space narrowing, vertebral endplate sclerosis and anterior osteophytosis throughout the visualized thoracic and the entire lumbar spine consistent with degenerative disc disease. grade 1 retrolisthesis of L2 on L3 with overall straightening of the normal lumbar spine lordosis, likely secondary to pain, positioning or the degenerative disc disease changes within the lumbar spine. The vertebral heights are normal. There is mild lower lumbar spine facet joint hypertrophic change. The bony mineralization is normal. No bony fracture, dislocation or subluxation is identified. ASSESSMENT/PLAN: Pt is 68 y/o M with PMH of bicuspid AV, chronic intermittent scrotal pain, BPH, elevated PSA, hematuria #penile lesion: Unclear etiology -Trial of topical steroid and clotrimazole In case of worsening symptoms or failing to resolve will refer to dermatology #resting tremor: -[facility] -Trial of propranolol-in case of improvement likely ET ->pt tried BB for 3 days only - no imporvemnt in sx- self dc/d due to ADR (sleepipness) B1, B12 repleted w/o improvement in sx -> referral to neurology -> ? early PD (strong family h/o PD) #bicuspid AV stable -ECHO 12/2020, surveillance q2-3 y due now, pt denies any CP, LOVE, syncope -c/w ASA -will obtain ECHO #lumbar radiculopathy: not bothersome at this time XR LS 12/2022 Multilevel mild to moderate degenerative changes most prominent at the L2-3 level. -Meloxicam prn (SE reviewed with pt) -lidocaine patch -Fall precautions #h/o hematuria: Asymptomatic -03/[address] A/P and cystoscopy was negative 04/2020 u/a negative 02/2023 #h/o elevated PSA -> normalized psa 3.7 (08/2023) prostate Bx in 2014 negative - he was treated for chronic prostatitis in the past TRUS Bx 05/2021 benign #B12 deficiency,B1 deficiency: Normalized on supplementation Healthcare maintenance: --Lipids: LDL 99 (12/2022) --Diabetes: A1C 5.1 (12/2022) --Colon CA (50-75): due 07/2023 -- History of polyp of colon -- August 01, 2007 w[facility] -- 07/2018 2x TA -- 12/2022 FIT negative --Lung CA: n/a --PSA PSA 3.7 (08/2023) --AAA (smoker/65): n/a --Influenza (yrly): 07/2023 --moderna covid x3 --PCV20 2021 --PCV23: 2020 --RZV (>50yrs, x2): 2018,2018 --TDAP: 2020 --Hep C screen: 2020 neg --HIV screen: 2020 neg --DEXA: --Advanced Directives: Return to clinic to see me in 6 months, sooner PRN. Virtual ( ), F2F ( x ) ( x)fasting labs ordered prior to f/u --Please place referral to neurology for evaluation of resting tremor, strong family history of Parkinson's --please p0ace referral to GI for colonoscopy . thanks History of polyp of colon August 01, 2007 [facility] [place] 07/2018 2x TA Follow Up Colonoscopy: Colonoscopy is due based on information available to this reminder. A colonoscopy is currently scheduled or in process of being scheduled. Medication Reconciliation: Outpatient: Has the patient been taking medications as documented in the EMLR? YES: The patient has been taking medications as documented in the EMLR. Essential Medication List for Review used to complete this medication reconciliation. INCLUDED IN THIS LIST: Alphabetical list of active outpatient prescriptions dispensed from this [facility] (local) and dispensed from another [place] or [facility] facility (remote) as well as inpatient orders [...] whether with a VA or non-VA provider. /lele/ TAVO LANDEROS MD PHYSICIAN Signed: 08/26/2023 16:30 Receipt Acknowledged By: 08/27/2023 12:02 /lele/ CLINTON AMADOR RN REGISTERED NURSE 09/01/2023 ADDENDUM STATUS: COMPLETED --08/2023-- WBC: 5.33 RBC: 5.73 H HGB: 13.2 HCT: 43.0 MCV: 75.0 L MCHC: 30.7 L RDW: 15.9 PLT: 199 MCH: 23.0 L VIT B1 (QU): 54 H VIT. B12 (WROX): 956 H NG PCR: NOT DETECTED CT PCR: NOT DETECTED RPR AUTO: Non Reactive HIV Ag/Ab COMBO: NON-REACTIVE HEPATITIS C AB: NON-REACTIVE /lele/ TAVO LANDEROS MD PHYSICIAN Signed: 09/01/2023 22:44 12/21/2023 ADDENDUM STATUS: COMPLETED #ECHO 12/2023 Normal left and right ventricular size and normal systolic function LVEF 65% Normal diastolic function for age Aortic sclerosis with no aortic stenosis, with mild AR (AV not well visualized) No significant pericardial effusion /lele/ TAVO LANDEROS MD PHYSICIAN Signed: 12/21/2023 13:22 05/23/2024 ADDENDUM STATUS: COMPLETED Could you please obtain colonoscopy report, we have only received pathology results. [facility] February 2024 Thank you /lele/ TAVO LANDEROS MD PHYSICIAN Signed: 05/23/2024 09:59 Receipt Acknowledged By: 05/25/2024 11:00 /lele/ TOÑA STEPHENS 05/25/2024 ADDENDUM STATUS: COMPLETED Colonoscopy report requested from [facility] as directed /lele/ TOÑA STEPHENS Signed: 05/25/2024 11:00 ALIRIO LANDEROS [place]
--- OUTSIDE RECORDS SUMMARY | 2024-07-13 17:21 | XMS_ITS | Encounter Summary ---
Author Name [facility] [facility] Address [address] [place] [id number] Care Team Providers Care At[employer]heric [employer] Professor Name Role Phone TAVO LANDEROS Primary Care [...] PART A Apr 07, 2012 PART A [id number] [phone] LARON SMITH PATIENT MEDICARE (WNR) MEDICARE (M) PART B Apr 07, 2012 PART B [id number] [phone] LARON SMITH CTOR PATIENT MEDICARE (WNR) MEDICARE (M) PART A Apr 07, 2012 PART A [id number] LARON SMITH CTOR PATIENT MEDICARE (WNR) MEDICARE (M) PART B Apr 07, 2012 PART B [id number] LARON SMITH CTOR PATIENT MEDICARE (WNR) MEDICARE (M) PART A Apr 07, 2012 PART A [id number] LARON SMITH CTOR PATIENT MEDICARE (WNR) MEDICARE (M) PART B Apr 07, 2012 PART B [id number] LARON SMITH CTOR PATIENT FOR LIFE TFL* Jul 08, 2017 [id number] [phone] LARON SMITH CTOR PATIENT WPS (WNR) TRICA RE TFL Apr 07, 2012 TFL [id number] LARON SMITH CTOR PATIENT Selected Encounter This section includes the information on record at [place] for the Encounter. Date/Time Encounter Type Encounter Description Reason Pro vider Source May 17, 2024 12:00 AM Outpatient Encounter EVENT (HISTORICAL) IHE Encounter Template Text not used by [place] Plan of Treatment: Future Appointments (+ 6 months) and Future Tests (+/- 45 days) The Plan of Treatment section includes future care activities for the patient from all [facility]. This section includes future appointments and future orders which are active, pending or scheduled. Future Appointments This section includes appointments that were scheduled to occur 6 months from the date of the Encounter, up to a maximum of 20 appointments. The data comes from all [place] treatment facilities. Appointment Date/Time Appointment Type Appointme nt Facility Name Jun 11, 2024 09:30 AM AMBULATORY - MEDICINE [facility] Jun 11, 2024 10:30 AM AMBULATORY - MEDICINE [facility] Jun 15, 2024 02:30 PM [facility]INE [facility] Jun 17, 2024 12:30 [facility] Jul 22, 2024 01:40 PM AMBULATORY - MEDICINE [facility] Active, Pending, and Scheduled Orders This section includes a listing of several types of active, pending, and scheduled orders, including clinic medications orders, diagnostic test orders, procedure orders and consult orders; where the start date of the order is 45 days before the date of the Encounter or 45 days after the date of theEncounter. The data comes from all [place] treatment [facility]. Test Date/Time Test Type Test Details Facility Name Jun 12, 2024 10:15 PM Consult Order [facility]-NEUROLOGY [facility] Jun 14, 2024 12:00 AM Laboratory - Chemi stry Order URINALYSIS URINE [facility] Jun 20, 2024 08:54 PM Consult Order [facility] Social History: Smoking Status (Most current) and Tobacco Use (All prior to encounter date) This section includes the most current, and the historical, smoking and tobacco- related health factors from the [place] facility where the Encounter took place. Current Smoking Status This section includes the most current smoking, or tobacco-related health factor, from the [place] facility where the Encounter took place. Date/Time Current Smoking Status Comment Facil ity Aug 12, 2023 10:47 AM VA-TOBACCO NEVER USED [facility] Tobacco Use History This section includes a history of the smoking, or tobacco-related health factors, that were collected on or before the date of the Encounter. The data comes from the [place] facility where the Encounter took place. Date/Time Smoking Status/Tobacco Use Comment F acility May 02, 2022 12:18 PM VA-TOBACCO NEVER USED [facility]
--- OUTSIDE RECORDS SUMMARY | 2024-07-13 17:21 | XMS_ITS ---
Author Name [facility] [place] Organization [place] Address [address] [place] [id number] Care Team Providers Care Fashion Consultant Selling Name Role Phone TAVO LANDEROS Primary Care [...] PART A Apr 07, 2012 PART A [id number] 71A LARON SMITH PATIENT MEDICARE (WNR) MEDICARE (M) PART B Apr 07, 2012 PART B [id number] 71A LARON SMITHOR PATIENT MEDICARE (WNR) MEDICARE (M) PART A Apr 07, 2012 PART A [id number] 71A LARON SMITHOR PATIENT MEDICARE (WNR) MEDICARE (M) PART B Apr 07, 2012 PART B [id number] 71A LARON SMITH CTOR PATIENT MEDICARE (WNR) MEDICARE (M) PART A Apr 07, 2012 PART A [id number] LARON SMITH CTOR PATIENT MEDICARE (WNR) MEDICARE (M) PART B Apr 07, 2012 PART B [id number] LARON SMITH CTOR PATIENT FOR LIFE TFL* Jul 08, 2017 [id number] [phone] LARON SMITH CTOR PATIENT WPS (WNR) TRICA RE TFL Apr 07, 2012 TFL [id number] LARON SMITH CTOR PATIENT Selected Encounter This section includes the information on record at [place] for the Encounter. Date/Time Encounter Type Encounter Description Reason Pro vider Source Jun 11, 2024 10:44 AM Outpatient Encounter COMMUNITY CARE CONSULT IHE Encounter Template Text not used by [place] Plan of Treatment: Future Appointments (+ 6 months) and Future Tests (+/- 45 days) The Plan of Treatment section includes future care activities for the patient from all [place] treatmentfacilities. This section includes future appointments and future orders which are active, pending or scheduled. Future Appointments This section includes appointments that were scheduled to occur 6 months from the date of the Encounter, up to a maximum of 20 appointments. The data comes from all [place] treatment facilities. Appointment Date/Time Appointment Type Appointme nt Facility Name Jun 15, 2024 02:30 PM [facility] Jun 17, 2024 12:30 PM AMBULATORY - MEDICINE [facility] Jul 22, 2024 01:40 PM [facility]UL[facility]ORY - MEDICINE [facility] Active, Pending, and Scheduled Orders This section includes a listing of several types of active, pending, and scheduled orders, including clinic medications orders, diagnostic test orders, procedure orders and consult orders; where the start date of the order is 45 days before the date of the Encounter or 45 days after the date of theEncounter. The data comes from all [facility] facilities. Test Date/Time Test Type Test Details Facility Name Jun 12, 2024 10:15 PM Consult Order COMMUNITY CARE-NEUROLOGY Cons Lan Analyst's Choice [facility] Jun 14, 2024 12:00 AM Laboratory - Chemi stry Order URINALYSIS URINE SP [facility] Jun 20, 2024 08:54 PM Consult Order COMMUNITY CARE-UROLOGY Cons Lan Analyst[facility] Lab Results: +/- 30 days of the encounter This section includes the Chemistry and Hematology Lab Results on record with [place] for the patient. Radiology Reports and Pathology Reports are provided separately, in subsequent sections. Lab Results This section contains the Chemistry/Hematology Results that were resulted 30 days before or 30 daysafter the date of the Encounter. Date/Time Source Result Type Result - Unit Interpretation Reference Range Comment Jun 19, 2024 08:43 AM [facility] VITAMIN B-1 (THIAMINE)-(QU) Specimen Ty pe: PLASMA Comment: Vitamin supplementation within 24 hours prior to blood draw may affect the accuracy of the results. This test was developed and its analytical performance characteristics have been determined by [employer] [place], [place]. It has not been cleared or approved by the U.S. Food and Drug Administration. This assay has been validated pursuant to the CLIA regulations and is used for clinical purposes. Test Performed by [facility], [facility], [address] [place] [address] Juan Sanchez M.D., Ph.D., Director of Laboratories , CLIA [id number] TEST PERFORMED AT: , Ordering Provider: TAVO ROSAS Report Released Date/Time: Jun 14, 2024 11:22 AM Reporting Lab: [address] [address] Performing Lab: [address] [address] VITAMIN B-1 (THIAMINE)-(Q U) 6 nmol/L L 8-Jun 19, 2024 08:43 AM [facility] PSA Specimen Type: SERUM No comment entered. Ordering Provider: TAVO ROSAS Report Released Date/Time: Jun 14, 2024 11:21 AM Reporting Lab: [facility] [address] [facility] [address] Performing Lab: [address] [address] PSA 4.27 ng/mL H 0.00-4.00 Jun 19, 2024 08:43 AM [facility] VITAMIN B12 Specimen Type: SERUM No comment entered. Ordering Provider: TAVO ROSAS Report Released Date/Time: Jun 14, 2024 11:22 AM Reporting Lab: [address] [address] Performing Lab: [address] [address] VITAMIN B12 333 pg/mL 200-900 Jun 19, 2024 08:43 AM [facility] HEMOGLOBIN A1C PANEL Specimen Type: BLOOD Comment: Values obtained from A1C measurements can vary. For atypical A1C assays, a reported value of 7.0 could actually be between 6.72 and 7.28 if measured by a reference method. A reported value of 9.0 could actually be between 8.73 and 9.27. Ref: http://www.ngsp. org/CAPdata.asp Ordering Provider: TAVO ROSAS Report Released Date/Time: Jun 11, 2024 03:04 PM Reporting Lab: [address] [address] Performing Lab: [address] [address] HEMOGLOBIN A1C 5.3 4.0-5.6 Jun 19, 2024 08:43 AM [facility] LIPID PANEL FASTING Specimen Type: SERUM No comment entered. Ordering Provider: TAVO ROSAS Report Released Date/Time: Jun 11, 2024 03:04 PM Reporting Lab: [address] [address] Performing Lab: [address] [address] CHOLESTEROL 147 mg/dL TRIGLYCERIDE 69 mg/dL 0-150 LDL calculated 91 mg/dL 0-129 CHOL/HDL 3.5 HDL CHOLESTEROL 42 mg/dL 40-60 Jun 19, 2024 08:43 AM [facility] TSH Specimen Type: SERUM No comment entered. Ordering Provider: TAVO ROSAS Report Released Date/Time: Jun 11, 2024 03:04 PM Reporting Lab: [address] [address] Performing Lab: [address] [address] TSH 0.99 u[IU]/mL 0.35-5.00 Jun 19, 2024 08:43 AM [facility] LIVER FUNCTION Specimen Type: SERUM No comment entered. Ordering Provider: TAVO ROSAS Report Released Date/Time: Jun 11, 2024 03:04 PM Reporting Lab: [address] [address] Performing Lab: [address] [address] PROTEIN,TOTAL 6.0 g/dL 6.0-8.3 ALBUMIN 3.7 g/dL 3.5-5.0 ALKALINE PHOSPHATASE 63 U/L 40-150 AST 15 U/L 5-34 ALT 14 U/L BILIRUBIN, TOTAL 0.5 mg/dL 0.2-1.2 Jun 19, 2024 08:43 AM [facility] BASIC METABOLIC PANEL (fasting) Specime n Type: SERUM No comment entered. Ordering Provider: TAVO RSOAS Report Released Date/Time: Jun 11, 2024 03:04 PM Reporting Lab: [address] [address] Performing Lab: [address] [address] UREA NITROGEN 8 mg/dL 7-25 GLUCOSE 90 mg/dL 65-100 SODIUM 140 mmol/L 135-145 POTASSIUM 4.1 mmol/L 3.5-5.0 CHLORIDE 108 mmol/L 100-110 CO2 26 meq/L 20-30 CREATININE, Serum 0.86 mg/dL 0.50-1.40 eGFR(CKD-EPI 2020) >90 mL/min >60 Jun 19, 2024 08:43 AM [facility] CBC AND DIFF (AUTO) Specimen Type: BLOOD No comment entered. Ordering Provider: TAVO ROSAS Report Released Date/Time: Jun 11, 2024 03:04 PM Reporting Lab: [facility] [address] [facility] [address] Performing Lab: [place] [facility] [address] [facility] [address] WBC 5.24 10*3/uL 4.50-11.00 RBC 5.64 10*6/uL [...] 0.6 0.0-0.7 IMMATURE GRAN, ABS 0.03 10*3/uL 0.00-0.06 NRBC % 0.0 0.0-0.0 NRBC, ABS 0.00 10*3/uL 0.00-0.00 Social History: Smoking Status (Most current) and Tobacco Use (All prior to encounter date) This section includes the most current, and the historical, smoking and tobacco- related health factors from the [place] facility where the Encounter took place. Current Smoking Status This section includes the most current smoking, or tobacco-related health factor, from the [place] facility where the Encounter took place. Date/Time Current Smoking Status Susanne izquierdo Aug 12, 2023 10:47 AM VA-TOBACCO NEVER USED [facility] Tobacco Use History This section includes a history of the smoking, or tobacco-related health factors, that were collected on or before the date of the Encounter. The data comes from the [place] facility where the Encounter took place. Date/Time Smoking Status/Tobacco Use Comment Nawaf nazario May 02, 2022 12:18 PM VA-TOBACCO NEVER USED [facility] Encounter Notes: All associated encounter notes This section contains the clinical notes associated to the Encounter. Date/Time Encounter Note(s) Provider Source Jun 11, 2024 10:44 AM ADMINISTRATIVE NOT E: LOCAL TITLE: ADMINISTRATIVE NOTE STANDARD TITLE: ADMINISTRATIVE NOTE DATE OF NOTE: JUN 11, 2024@10:44 ENTRY DATE: JUN 11, 2024@10:44:45 AUTHOR: JACLYN MACKENZIE EXP COSIGNER: URGENCY: STATUS: COMPLETED ADMINISTRATIVE NOTE Has ADDENDA Call from [facility] requesting an authorization renewal. [place]'s next appt is 06/17/24 at 12:30. If PCP agrees, a new Neurology consult is needed. /jcarlos MACKENZIE RN Community Keeler Polygraph Operator Signed: 06/11/2024 10:45 Receipt Acknowledged By: 06/11/2024 18:15 /jcarlos LANDEROS MD PHYSICIAN 06/12/2024 16:25 /jcarlos VASQUEZ RN REGISTERED NURSE 06/11/2024 ADDENDUM STATUS: COMPLETED Please place referral as requested /jcarlos LANDEROS MD PHYSICIAN Signed: 06/11/2024 18:15 06/12/2024 ADDENDUM STATUS: COMPLETED Consult placed as requested and held for PCP signature. /jcarlos VASQUEZ RN REGISTERED NURSE Signed: 06/12/2024 16:25 JACLYN MACKENZIE [facility]
--- OUTSIDE RECORDS SUMMARY | 2024-07-13 17:21 | XMS_ITS | Encounter Summary ---
Author Name [place] Address [address] [place] [address] Care Team Providers Care Shift Superintendent Caustic Cresylate Name Role Phone TAVO LANDEROS Primary Care [...] PART A Apr 07, 2012 PART A [id number] [phone] LARON SMITH PATIENT MEDICARE (WNR) MEDICARE (M) PART B Apr 07, 2012 PART B [id number] 71A LARON SMITH CTOR PATIENT MEDICARE (WNR) MEDICARE (M) PART B Apr 07, 2012 PART B [id number] 71A LARON SMITH CTOR PATIENT MEDICARE (WNR) MEDICARE (M) PART A Apr 07, 2012 PART A [id number] 71A LARON SMITH CTOR PATIENT MEDICARE (WNR) MEDICARE (M) PART A Apr 07, 2012 PART A [id number] [facility] LARON SMITH CTOR PATIENT MEDICARE (WNR) MEDICARE (M) PART B Apr 07, 2012 PART B [id number] [facility] LARON SMITH CTTALIA PATIENT FOR LIFE TFL* Jul 08, 2017 [id number] LARON SMITH CTOR PATIENT WPS (WNR) TRICA RE TFL Apr 07, 2012 TFL [id number] 71 LARON SMITH CTTALIA PATIENT Selected Encounter This section includes the information on record at [place] for the Encounter. Date/Time Encounter Type Encounter Description Reason Provider Source Jun 11, 2024 11:39 AM FIT SPECTACLES MONOFOCAL OPTOMETRY ICD-10-CM Z46.0 Encounter for fit/adjst of spectacles and contact lenses BEULAH VIZCAINO Encounter Template Text not used by [place] Assessments - Encounter Diagnoses This section includes the primary and secondary diagnoses documented for the Encounter. Date/Time Primary/Secondary Diagnosis Diagnosis Name Provider Source Jun 11, 2024 11:39 AM PRIMARY Encounter for fit/adjst of spectacles and contact lenses [facility] Plan of Treatment: Future Appointments (+ 6 months) and Future Tests (+/- 45 days) The Plan of Treatment section includes future care activities for the patient from all [place] treatmentfacilities. This section includes future appointments and future orders which are active, pending or scheduled. Future Appointments This section includes appointments that were scheduled to occur 6 months from the date of the Encounter, up to a maximum of 20 appointments. The data comes from all [place] treatment facilities. Appointment Date/Time Appointment Type Appointme nt Facility Name Jun 15, 2024 02:30 PM [facility] [place] Jun 17, 2024 12:30 PM [facility] [place] [facility] Jul 22, 2024 01:40 PM [facility] Active, Pending, and Scheduled Orders This section includes a listing of several types of active, pending, and scheduled orders, including clinic medications orders, diagnostic test orders, procedure orders and consult orders; where the start date of the order is 45 days before the date of the Encounter or 45 days after the date of theEncounter. The data comes from all [place] treatment facilities. Test Date/Time Test Type Test Details Facility Name Jun 12, 2024 10:15 PM Consult Order COMMUNITY CARE-NEUROLOGY Cons Operational Meteorologist's [facility] Jun 14, 2024 12:00 AM Laboratory - Chemi stry Order URINALYSIS URINE SP [facility] Jun 20, 2024 08:54 PM Consult Order [facility]-UROLOGY Cons Operational Meteorologist's [facility] Lab Results: +/- 30 days of the encounter This section includes the Chemistry and Hematology Lab Results on record with [place] for the patient. Radiology Reports and Pathology Reports are provided separately, in subsequent sections. Lab Results This section contains the Chemistry/Hematology Results that were resulted 30 days before or 30 daysafter the date of the Encounter. Date/Time Source Result Type Result - Unit Interpretation Reference Range Comment Jun 19, 2024 08:43 AM [facility] VITAMIN B-1 (THIAMINE)-(QU) Specimen Ty pe: PLASMA Comment: Vitamin supplementation within 24 hours prior to blood draw may affect the accuracy of the results. This test was developed and its analytical performance characteristics have been determined by [employer] [place], [place]. It has not been cleared or approved by the U.S. Food and Drug Administration. This assay has been validated pursuant to the CLIA regulations and is used for clinical purposes. Test Performed by [facility], [facility], [address] [place] [address] Juan Sanchez M.D., Ph.D., Director of Laboratories , CLIA [id number] TEST PERFORMED AT: , Ordering Provider: TAVO ROSAS Report Released Date/Time: Jun 14, 2024 11:22 AM Reporting Lab: [facility] [address] [facility] [address] Performing Lab: [facility] [address] [address] VITAMIN B-1 (THIAMINE)-(Q U) 6 nmol/L L 8-Jun 19, 2024 08:43 AM [facility] PSA Specimen Type: SERUM No comment entered. Ordering Provider: TAVO ROSAS Report Released Date/Time: Jun 14, 2024 11:21 AM Reporting Lab: [facility] [place] [address] [address] Performing Lab: [place] [facility] [place] [address] [address] PSA 4.27 ng/mL H 0.00-4.00 Jun 19, 2024 08:43 AM [facility] [place] VITAMIN B12 Specimen Type: SERUM No comment entered. Ordering Provider: TAVO ROSAS Report Released Date/Time: Jun 14, 2024 11:22 AM Reporting Lab: [place] [facility] [place] [address] [address] Performing Lab: [facility] [address] [address] VITAMIN B12 333 pg/mL 200-900 Jun 19, 2024 08:43 AM [facility] HEMOGLOBIN A1C PANEL Specimen Type: BLOOD Comment: [...] Jun 11, 2024 03:04 PM Reporting Lab: [place] [facility] [place] [address] [address] Performing Lab: [facility] [address] [address] HEMOGLOBIN A1C 5.3 4.0-5.6 Jun 19, 2024 08:43 AM [facility] TSH Specimen Type: SERUM No comment entered. Ordering Provider: TAVO ROSAS Report Released Date/Time: Jun 11, 2024 03:04 PM Reporting Lab: [place] [facility] [place] [address] [address] Performing Lab: [facility] [address] [facility] [address] TSH 0.99 u[IU]/mL 0.35-5.00 Jun 19, 2024 08:43 AM [facility] LIPID PANEL FASTING Specimen Type: SERUM No comment entered. Ordering Provider: TAVO ROSAS Report Released Date/Time: Jun 11, 2024 03:04 PM Reporting Lab: [address] [address] Performing Lab: [address] [address] CHOLESTEROL 147 mg/dL TRIGLYCERIDE 69 mg/dL 0-150 LDL calculated 91 mg/dL 0-129 CHOL/HDL 3.5 HDL CHOLESTEROL 42 mg/dL 40-60 Jun 19, 2024 08:43 AM [facility] LIVER FUNCTION Specimen Type: SERUM No comment entered. Ordering Provider: TAVO ROSAS Report Released Date/Time: Jun 11, 2024 03:04 PM Reporting Lab: [address] [address] Performing Lab: [address] [address] PROTEIN,TOTAL 6.0 g/dL 6.0-8.3 ALBUMIN 3.7 g/dL 3.5-5.0 ALKALINE PHOSPHATASE 63 U/L 40-150 AST 15 U/L 5-34 ALT 14 U/L BILIRUBIN, TOTAL 0.5 mg/dL 0.2-1.2 Jun 19, 2024 08:43 AM [facility] BASIC METABOLIC PANEL (fasting) Specime n Type: SERUM No comment entered. Ordering Provider: TAVO ROSAS Report Released Date/Time: Jun 11, 2024 03:04 PM Reporting Lab: [address] [address] Performing Lab: [address] [address] UREA NITROGEN 8 mg/dL 7-25 GLUCOSE 90 mg/dL 65-100 SODIUM 140 mmol/L 135-145 POTASSIUM 4.1 mmol/L 3.5-5.0 CHLORIDE 108 mmol/L 100-110 CO2 26 meq/L 20-30 CREATININE, Serum 0.86 mg/dL 0.50-1.40 eGFR(CKD-EPI 2020) >90 mL/min >60 Jun 19, 2024 08:43 AM [facility] CBC AND DIFF (AUTO) Specimen Type: BLOOD No comment entered. Ordering Provider: TAVO ROSAS Report Released Date/Time: Jun 11, 2024 03:04 PM Reporting Lab: [facility] [address] [facility] [address] Performing Lab: [facility] [address] [facility] [address] WBC 5.24 10*3/uL 4.50-11.00 RBC 5.64 10*6/uL [...] and tobacco- related health factors from the [place] facility where the Encounter took place. Current Smoking Status This section includes the most current smoking, or tobacco-related health factor, from the [place] facility where the Encounter took place. Date/Time Current Smoking Status Comment Ely izquierdo Aug 12, 2023 10:47 AM VA-TOBACCO NEVER USED [facility] Tobacco Use History This section includes a history of the smoking, or tobacco-related health factors, that were collected on or before the date of the Encounter. The data comes from the [place] facility where the Encounter took place. Date/Time Smoking Status/Tobacco Use Comment Nawaf nazario May 02, 2022 12:18 PM VA-TOBACCO NEVER USED [facility] Encounter Notes: All associated encounter notes This section contains the clinical notes associated to the Encounter. Date/Time Encounter Note(s) Provider Source Jun 11, 2024 11:39 AM OPTOMETRY NOTE: LOCAL TITLE: OPTOMETRY NOTE STANDARD TITLE: OPTOMETRY NOTE DATE OF NOTE: JUN 11, 2024@11:39 ENTRY DATE: JUN 11, 2024@11:39:28 AUTHOR: MARISELA FIGUEROA COSIGNER: URGENCY: STATUS: COMPLETED OPTOMETRY NOTE Has ADDENDA The quote provided below is for informational purposes only. Please verify prior to the creation of a purchase order. DEVORAROSY MCKINNEYA [id number] RX INFORMATION OD -0.25 -2.75 X85 Add:0.00 Pzm:0.00 Dir: Prz2:0.00 Dir2: OS +0.50 -2.75 X80 Add:0.00 Pzm:0.00 Dir: Prz2:0.00 Dir2: FITTING INFORMATION FPD:61 NPD: [place]:R: L: SEG HT:R: L: Tint:None Shade:None [place] Billable Items FRAME: US59 BLACK [id number] Right Lens: POLY SINGLE VISION PHOTOCHROMATIC MCKENNA 1.586 POLY Left Lens: POLY SINGLE VISION PHOTOCHROMATIC MCKENNA 1.586 POLY CLIN items 0001 - Single Vision - Glass Plastic Poly 0005 - Transition /es/ MARISELA FIGUEROA HOT STRIP MILL SUPERVISOR Signed: 06/11/2024 11:39 Receipt Acknowledged By: 06/12/2024 10:32 /lele/ Radha Smallwood LPN Licensed Practical Nurse 06/12/2024 ADDENDUM STATUS: COMPLETED PDS die casting machine operator fit 1 SV eyeglasses on 06/11/2024. OPT HT entered consult(s) as requested for provider signature. /lele/ Radha Smallwood LPN Licensed Practical Nurse Signed: 06/12/2024 10:34 MARISELA FIGUEROA CNTRL [facility]
--- OUTSIDE RECORDS SUMMARY | 2024-07-13 17:21 | XMS_ITS ---
Author Name [place] Organization [place] Address [address] [place] [address] Care Team Providers Care Borderer Name Role Phone TAVO LANDEROS Primary Care [...] PART A Apr 07, 2012 PART A [id number] LARON SMITH PATIENT MEDICARE (WNR) MEDICARE (M) PART B Apr 07, 2012 PART B [id number] 71A LARON SMITHOR PATIENT MEDICARE (WNR) MEDICARE (M) PART A Apr 07, 2012 PART A [id number] [phone] LARON SMITH CTOR PATIENT MEDICARE (WNR) MEDICARE (M) PART B Apr 07, 2012 PART B [id number] LARON SMITH CTOR PATIENT MEDICARE (WNR) MEDICARE (M) PART B Apr 07, 2012 PART B [id number] LARON SMITH CTTALIA PATIENT MEDICARE (WNR) MEDICARE (M) PART A Apr 07, 2012 PART A [id number] LARON SMITH CTTALIA PATIENT FOR LIFE TFL* Jul 08, 2017 [id number] LARON SMITH CTOR PATIENT WPS (WNR) TRICA RE TFL Apr 07, 2012 TFL [id number] 71 LARON SMITH CTTALIA PATIENT Selected Encounter This section includes the information on record at [place] for the Encounter. Date/Time Encounter Type Encounter Description Reason Pro vider Source Mar 03, 2024 12:00 AM Outpatient Encounter COMMUNITY CARE CONSULT IHE Encounter Template Text not used by [place] Plan of Treatment: Future Appointments (+ 6 [...] 11, 2024 09:30 AM [facility] Jun 11, 2024 10:30 AM AM[facility]UL[facility] Jun 15, 2024 02:30 PM AMBULATORY - MEDICINE [facility] Jun 17, 2024 12:30 PM AMBULAT[facility] Jul 22, 2024 01:40 PM [facility] Social History: Smoking Status (Most current) and Tobacco Use (All prior to encounter date) This section includes the most current, and the historical, smoking and tobacco- related health factors from the [place] facility where the Encounter took place. Current Smoking Status This section includes the most current smoking, or tobacco-related health factor, from the [place] facility where the Encounter took place. Date/Time Current Smoking Status Susanne izquierdo Aug 12, 2023 10:47 AM VA-TOBACCO NEVER USED [facility] Tobacco Use History This section includes a history of the smoking, or tobacco-related health factors, that were collected on or before the date of the Encounter. The data comes from the [place] facility where the Encounter took place. Date/Time Smoking Status/Tobacco Use Comment Nawaf nazario May 02, 2022 12:18 PM VA-TOBACCO NEVER USED [facility] Encounter Notes: All associated encounter notes This section contains the clinical notes associated to the Encounter. Date/Time Encounter Note(s) Provider Source Mar 03, 2024 12:00 AM NONVA CONSULT: LOCAL TITLE: COMMUNITY CARE-CONSULT RESULT COLONOSCOPY STANDARD TITLE: NONVA CONSULT DATE OF NOTE: MAR 03, 2024 ENTRY DATE: MAY 22, 2024@11:49:19 AUTHOR: YUDELKA WHITE EXP COSIGNER: URGENCY: STATUS: COMPLETED VistA Imaging - Scanned Document SCANNED DOCUMENT SIGNATURE NOT REQUIRED Electronically Filed: 05/22/2024 by: YUDELKA SOLO [facility] Mar 03, 2024 12:00 AM NONVA CONSULT: LOCAL TITLE: COMMUNITY CARE-CONSULT RESULT COLONOSCOPY STANDARD TITLE: NONVA CONSULT DATE OF NOTE: MAR 03, 2024 ENTRY DATE: JUN 24, 2024@07:36:55 AUTHOR: MYESHA MCNULTY EXP COSIGNER: URGENCY: STATUS: COMPLETED VistA Imaging - Scanned Document SCANNED DOCUMENT SIGNATURE NOT REQUIRED Electronically Filed: 06/24/2024 by: MYESHA AMARO [facility]
--- OUTSIDE RECORDS SUMMARY | 2024-07-13 17:21 | XMS_ITS ---
Author Name [facility] [place] Address [address] [place] [address] Care Team Providers Care Brassiere Cup Mold Cutter Name Role Phone TAVO LANDEROS Primary Care [...] PART A Apr 07, 2012 PART A [id number] LARON SMITH PATIENT MEDICARE (WNR) MEDICARE (M) PART B Apr 07, 2012 PART B [id number] [phone] LARON SMITH CTOR PATIENT MEDICARE (WNR) MEDICARE (M) PART B Apr 07, 2012 PART B [id number] LARON SMITH CTOR PATIENT MEDICARE (WNR) MEDICARE (M) PART A Apr 07, 2012 PART A [id number] [phone] LARON SMITH CTOR PATIENT MEDICARE (WNR) MEDICARE (M) PART A Apr 07, 2012 PART A [id number] LARON SMITH CTOR PATIENT MEDICARE (WNR) MEDICARE (M) PART B Apr 07, 2012 PART B [id number] LARON SMITH CTOR PATIENT FOR LIFE TFL* Jul 08, 2017 [id number] LARON SMITH CTOR PATIENT WPS (WNR) TRICA RE TFL Apr 07, 2012 TFL [id number] LARON SMITH CTOR PATIENT Selected Encounter This section includes the information on record at [place] for the Encounter. Date/Time Encounter Type Encounter Description Reason Pro vider Source May 08, 2024 12:00 AM Outpatient Encounter EVENT (HISTORICAL) IHE Encounter Template Text not used by [place] Plan of Treatment: Future Appointments (+ 6 months) and Future Tests (+/- 45 days) The Plan of Treatment section includes future care activities for the patient from all [place] [facility] This section includes future appointments and future orders which are active, pending or scheduled. Future Appointments This section includes appointments that were scheduled to occur 6 months from the date of the Encounter, up to a maximum of 20 appointments. The data comes from all [place] treatment facilities. Appointment Date/Time Appointment Type Appointme nt Facility Name Jun 11, 2024 09:30 AM AMBULATORY - MEDICINE [facility] Jun 11, 2024 10:30 AM AMBULATORY - MEDICINE [facility] Jun 15, 2024 02:30 PM AMBULATORY - MEDICINE [facility] Jun 17, 2024 12:30 PM [facility] Jul 22, 2024 01:40 PM AMBULATORY - MEDICINE [facility] Active, Pending, and Scheduled Orders This section includes a listing of several types of active, pending, and scheduled orders, including clinic medications orders, diagnostic test orders, procedure orders and consult orders; where the start date of the order is 45 days before the date of the Encounter or 45 days after the date of theEncounter. The data comes from all [place] treatment [facility]. Test Date/Time Test Type Test Details Facility Name Jun 12, 2024 10:15 PM Consult Order [facility]OLOG[facility] Business Education Instructor's [facility] Jun 14, 2024 12:00 AM Laboratory - Chemi stry Order URINALYSIS URINE SP [place] Jun 20, 2024 08:54 PM Consult Order [facility]-UROLOGY [facility] Business Education Instructor'[facility] Immunizations: All administered on the encounter date This section contains immunizations associated to the Encounter. Immunization Series Date Issued Reaction Comments INFLUENZA, UNSPECIFIED FORMULATION May 08, 2024 Social History: Smoking Status (Most current) and Tobacco Use (All prior to encounter date) This section includes the most current, and the historical, smoking and tobacco- related health factors from the [place] facility where the Encounter took place. Current Smoking Status This section includes the most current smoking, or tobacco-related health factor, from the [place] facility where the Encounter took place. Date/Time Current Smoking Status Comment Facil ity Aug 12, 2023 10:47 AM VA-TOBACCO NEVER USED [facility] Tobacco Use History This section includes a history of the smoking, or tobacco-related health factors, that were collected on or before the date of the Encounter. The data comes from the [place] facility where the Encounter took place. Date/Time Smoking Status/Tobacco Use Comment F acility May 02, 2022 12:18 PM VA-TOBACCO NEVER USED [facility]
--- OUTSIDE RECORDS SUMMARY | 2024-07-13 17:21 | XMS_ITS ---
Author Name [place] Address [address] [place] [id number] Care Team Providers Care Commercial Lines Assistant Name Role Phone TAVO LANDEROS Primary Care [...] PART A Apr 07, 2012 PART A [id number] [phone] LARON SMITH PATIENT MEDICARE (WNR) MEDICARE (M) PART B Apr 07, 2012 PART B [id number] [phone] LARON SMITH CTOR PATIENT MEDICARE (WNR) MEDICARE (M) PART A Apr 07, 2012 PART A [id number] LARON SMITH CTOR PATIENT MEDICARE (WNR) MEDICARE (M) PART B Apr 07, 2012 PART B [id number] [phone] LARON SMITH CTOR PATIENT MEDICARE (WNR) MEDICARE (M) PART B Apr 07, 2012 PART B [id number] LARON SMITH CTOR PATIENT MEDICARE (WNR) MEDICARE (M) PART A Apr 07, 2012 PART A [id number] LARON SMITH CTOR PATIENT FOR LIFE TFL* Jul 08, 2017 [id number] LARON SMITH CTOR PATIENT WPS (WNR) TRICA RE TFL Apr 07, 2012 TFL [id number] LARON SMITH CTOR PATIENT Selected Encounter This section includes the information on record at [place] for the Encounter. Date/Time Encounter Type Encounter Description Reason Pro vider Source May 17, 2024 03:05 PM Outpatient Encounter PRIMARY CARE/MEDICINE IHE Encounter Template Text not used by [place] Plan of Treatment: Future Appointments (+ 6 months) and Future Tests (+/- 45 days) The Plan of Treatment section includes future care activities for the patient from all [place] [facility]. This section includes future appointments and future orders which are active, pending or scheduled. Future Appointments This section includes appointments that were scheduled to occur 6 months from the date of the Encounter, up to a maximum of 20 appointments. The data comes from all [place] treatment facilities. Appointment Date/Time Appointment Type Appointme nt Facility Name Jun 11, 2024 09:30 AM AMBULATORY - MEDICINE [facility] Jun 11, 2024 10:30 AM [facility] Jun 15, 2024 02:30 PM AMBULATORY - MEDICINE [facility] Jun 17, 2024 12:30 PM [facility]UL[facility] Jul 22, 2024 01:40 PM AMBULATORY - MEDICINE [facility] Active, Pending, and Scheduled Orders This section includes a listing of several types of active, pending, and scheduled orders, including clinic medications orders, diagnostic test orders, procedure orders and consult orders; where the start date of the order is 45 days before the date of the Encounter or 45 days after the date of theEncounter. The data comes from all [place] treatment [place]. Test Date/Time Test Type Test Details Facility Name Jun 12, 2024 10:15 PM Consult Order [facility]-NEUROLOGY Cons Acoustical Engineer's [facility] Jun 14, 2024 12:00 AM Laboratory - Chemi stry Order URINALYSIS URINE SP [place] Jun 20, 2024 08:54 PM Consult Order [facility] Acoustical Engineer's [facility] Social History: Smoking Status (Most current) and Tobacco Use (All prior to encounter date) This section includes the most current, and the historical, smoking and tobacco- related health factors from the [place] facility where the Encounter took place. Current Smoking Status This section includes the most current smoking, or tobacco-related health factor, from the [place] facility where the Encounter took place. Date/Time Current Smoking Status Comment Facil ity Aug 12, 2023 10:47 AM VA-TOBACCO NEVER USED [place] [facility] Tobacco Use History This section includes a history of the smoking, or tobacco-related health factors, that were collected on or before the date of the Encounter. The data comes from the [place] facility where the Encounter took place. Date/Time Smoking Status/Tobacco Use Comment F acility May 02, 2022 12:18 PM VA-TOBACCO NEVER USED [place] [employer] [facility] Encounter Notes: All associated encounter notes This section contains the clinical notes associated to the Encounter. Date/Time Encounter Note(s) Provider Source May 17, 2024 03:05 PM PREVENTIVE MEDICIN E NURSING NOTE: LOCAL TITLE: CLINICAL REMINDERS/NURSING STANDARD TITLE: PREVENTIVE MEDICINE NURSING NOTE DATE OF NOTE: MAY 17, 2024@15:05 ENTRY DATE: MAY 17, 2024@15:07:21 AUTHOR: SANA SOLANO EXP COSIGNER: URGENCY: STATUS: COMPLETED Colonoscopy GAP Reminder: Recommendations are needed in the clinical reminder system following the patient's most recent colorectal cancer screening/surveillance test (Colonoscopy, Sigmoidoscopy or CT Colonography) Colonoscopy reminder set 1 year from MAY 17, 2024. Comment: Due 02/2025 /lele/ ASUNCION BROWN,RN-BC REGISTERED NURSE (RN) Signed: 05/17/2024 15:10 SANA SOLANO
--- OUTSIDE RECORDS SUMMARY | 2024-07-13 17:21 | XMS_ITS | Encounter Summary ---
Author Name [place] Address [address] [place] [address] Care Team Providers Care Director Case Management Name Role Phone TAVO LANDEROS Primary Care [...] Relationship to Policy [place] MEDICARE (WNR) MEDICARE () PART A Apr 07, 2012 PART A [id number] [phone] LARON SMITH PATIENT MEDICARE (WNR) MEDICARE (M) PART B Apr 07, 2012 PART B [id number] [phone] LARON SMITH CTOR PATIENT MEDICARE (WNR) MEDICARE (M) PART A Apr 07, 2012 PART A [id number] LARON SMITH CTOR PATIENT MEDICARE (WNR) MEDICARE (M) PART B Apr 07, 2012 PART B [id number] LARON SMITH CTOR PATIENT MEDICARE (WNR) MEDICARE (M) PART B Apr 07, 2012 PART B [id number] [facility] LARON SMITH CTOR PATIENT MEDICARE (WNR) MEDICARE (M) PART A Apr 07, 2012 PART A [id number] [facility] LARON SMITH CTOR PATIENT FOR LIFE TFL* Jul 08, 2017 [id number] LARON SMITH CTOR PATIENT WPS (WNR) TRICA RE TFL Apr 07, 2012 TFL [id number] [phone] LARON SMITH CTOR PATIENT Selected Encounter This section includes the information on record at [place] for the Encounter. Date/Time Encounter Type Encounter Description Reason Provider Source Jun 11, 2024 10:30 AM CMPTR OPHTH IMG OPTIC NERVE OPTOMETRY ICD-10-CM H40.013 Open angle with borderline findings, low risk, bilateral BEULAH VIZCAINO [employer] Encounter Template Text not used by [place] Assessments - Encounter Diagnoses This section includes the primary and secondary diagnoses documented for the Encounter. Date/Time Primary/Secondary Diagnosis Diagnosis Name Provider Source Jun 11, 2024 09:42 AM PRIMARY Open angle with borderline findings, low risk, bilateral BEULAH VIZCAINO [facility] Plan of Treatment: Future Appointments (+ 6 months) and Future Tests (+/- 45 days) The Plan of Treatment section includes future care activities for the patient from all [place] treatmentfacilities. This section includes future appointments and future orders which are active, pending or scheduled. Future Appointments This section includes appointments that were scheduled to occur 6 months from the date of the Encounter, up to a maximum of 20 appointments. The data comes from all [place] treatment facilities. Appointment Date/Time Appointment Type Appointme nt Facility Name Jun 15, 2024 02:30 PM [facility] Jun 17, 2024 12:30 PM [facility] - [facility] [place] [facility] Jul 22, 2024 01:40 PM AMBULATORY - MEDICINE [facility] Active, Pending, and Scheduled Orders This section includes a listing of several types of active, pending, and scheduled orders, including clinic medications orders, diagnostic test orders, procedure orders and consult orders; where the start date of the order is 45 days before the date of the Encounter or 45 days after the date of theEncounter. The data comes from all [place] treatment facilities. Test Date/Time Test Type Test Details Facility Name Jun 12, 2024 10:15 PM Consult Order [facility]-NEUROLOGY Cons Clinical Programmer's [facility] Jun 14, 2024 12:00 AM Laboratory - Chemi stry Order URINALYSIS URINE SP [place] Jun 20, 2024 08:54 PM Consult Order [facility]ITY [facility]-UROLOGY Cons Clinical Programmer's [facility] Lab Results: +/- 30 days of the encounter This section includes the Chemistry and Hematology Lab Results on record with [place] for the patient. Radiology Reports and Pathology Reports are provided separately, in subsequent sections. Lab Results This section contains the Chemistry/Hematology Results that were resulted 30 days before or 30 daysafter the date of the Encounter. Date/Time Source Result Type Result - Unit Interpretation Reference Range Comment Jun 19, 2024 08:43 AM [place] VITAMIN B-1 (THIAMINE)-(QU) Specimen Ty pe: PLASMA Comment: Vitamin supplementation within 24 hours prior to blood draw may affect the accuracy of the results. This test was developed and its analytical performance characteristics have been determined by [employer] [place], [place]. It has not been cleared or approved by the U.S. Food and Drug Administration. This assay has been validated pursuant to the CLIA regulations and is used for clinical purposes. Test Performed by [facility], [employer] [facility], [address] [place] [address] Juan Sanchez M.D., Ph.D., Director of Laboratories , CLIA [id number] TEST PERFORMED AT: , Ordering Provider: TAVO ROSAS Report Released Date/Time: Jun 14, 2024 11:22 AM Reporting Lab: [facility] [address] [facility] [address] Performing Lab: [facility] [address] [address] VITAMIN B-1 (THIAMINE)-(Q U) 6 nmol/L L 8-Jun 19, 2024 08:43 AM [place] PSA Specimen Type: SERUM No comment entered. Ordering Provider: TAVO ROSAS Report Released Date/Time: Jun 14, 2024 11:21 AM Reporting Lab: [facility] [address] [address] Performing Lab: [place] CNTRL [facility] [address] [address] PSA 4.27 ng/mL H 0.00-4.00 Jun 19, 2024 08:43 AM [place] VITAMIN B12 Specimen Type: SERUM No comment entered. Ordering Provider: TAVO ROSAS Report Released Date/Time: Jun 14, 2024 11:22 AM Reporting Lab: [facility] [address] [address] Performing Lab: [facility] TRN [facility] [address] [address] VITAMIN B12 333 pg/mL 200-900 Jun 19, 2024 08:43 AM [place] HEMOGLOBIN A1C PANEL Specimen Type: BLOOD Comment: [...] Jun 11, 2024 03:04 PM Reporting Lab: [facility] [place] [address] [address] Performing Lab: [facility] TRN [facility] [address] [address] HEMOGLOBIN A1C 5.3 4.0-5.6 Jun 19, 2024 08:43 AM [place] TSH Specimen Type: SERUM No comment entered. Ordering Provider: TAVO ROSAS Report Released Date/Time: Jun 11, 2024 03:04 PM Reporting Lab: [facility] [address] [address] Performing Lab: [place] [address] [address] TSH 0.99 u[IU]/mL 0.35-5.00 Jun 19, 2024 08:43 AM [place] LIPID PANEL FASTING Specimen Type: SERUM No comment entered. Ordering Provider: TAVO ROSAS Report Released Date/Time: Jun 11, 2024 03:04 PM Reporting Lab: [address] [address] Performing Lab: [address] [address] CHOLESTEROL 147 mg/dL TRIGLYCERIDE 69 mg/dL 0-150 LDL calculated 91 mg/dL 0-129 CHOL/HDL 3.5 HDL CHOLESTEROL 42 mg/dL 40-60 Jun 19, 2024 08:43 AM [place] LIVER FUNCTION Specimen Type: SERUM No comment entered. Ordering Provider: TAVO ROSAS Report Released Date/Time: Jun 11, 2024 03:04 PM Reporting Lab: [address] [address] Performing Lab: [address] [address] PROTEIN,TOTAL 6.0 g/dL 6.0-8.3 ALBUMIN 3.7 g/dL 3.5-5.0 ALKALINE PHOSPHATASE 63 U/L 40-150 AST 15 U/L 5-34 ALT 14 U/L BILIRUBIN, TOTAL 0.5 mg/dL 0.2-1.2 Jun 19, 2024 08:43 AM [place] BASIC METABOLIC PANEL (fasting) Specime n Type: SERUM No comment entered. Ordering Provider: TAVO ROSAS Report Released Date/Time: Jun 11, 2024 03:04 PM Reporting Lab: [address] [address] Performing Lab: [address] [address] UREA NITROGEN 8 mg/dL 7-25 GLUCOSE 90 mg/dL 65-100 SODIUM 140 mmol/L 135-145 POTASSIUM 4.1 mmol/L 3.5-5.0 CHLORIDE 108 mmol/L 100-110 CO2 26 meq/L 20-30 CREATININE, Serum 0.86 mg/dL 0.50-1.40 eGFR(CKD-EPI 2020) >90 mL/min >60 Jun 19, 2024 08:43 AM [place] CBC AND DIFF (AUTO) Specimen Type: BLOOD No comment entered. Ordering Provider: TAVO ROSAS Report Released Date/Time: Jun 11, 2024 03:04 PM Reporting Lab: [facility] [address] [facility] [address] Performing Lab: [facility] [address] [facility] [address] WBC 5.24 10*3/uL 4.50-11.00 RBC 5.64 10*6/uL [...] and tobacco- related health factors from the [place] facility where the Encounter took place. Current Smoking Status This section includes the most current smoking, or tobacco-related health factor, from the [place] facility where the Encounter took place. Date/Time Current Smoking Status Comment Ely izquierdo Aug 12, 2023 10:47 AM VA-TOBACCO NEVER USED [facility] Tobacco Use History This section includes a history of the smoking, or tobacco-related health factors, that were collected on or before the date of the Encounter. The data comes from the [place] facility where the Encounter took place. Date/Time Smoking Status/Tobacco Use Comment F aravind May 02, 2022 12:18 PM VA-TOBACCO NEVER USED [facility] Encounter Notes: All associated encounter notes This section contains the clinical notes associated to the Encounter. Date/Time Encounter Note(s) Provider Source Jun 11, 2024 09:40 AM OPTOMETRY CONSULT: LOCAL TITLE: CONSULT REPORT/OPTOMETRY OCT STANDARD TITLE: OPTOMETRY CONSULT DATE OF NOTE: JUN 11, 2024@09:40 ENTRY DATE: JUN 11, 2024@09:40:16 AUTHOR: CARINE VIZCAINO EXP COSIGNER: URGENCY: STATUS: COMPLETED Review optic nerve OCT of patient follows bilateral low risk glaucoma suspect. Optic nerve OCT right eye: Average retinal nerve fiber layer thickness is 103 ??m with average cup-to-disc ratio 0.60 and vertical cup-to-disc ratio of 0.56. Disc area measures 1.99 mm??. There is no evidence of nerve fiber layer loss or defect in any quadrant right eye. Optic nerve OCT left eye: Average retinal nerve fiber layer thickness is 105 ??m with average cup-to-disc ratio of 0.61 and vertical cup-to-disc ratio of 0.60. Disc area is slightly smaller than right eye measuring 1.88 mm??. There is no evidence of nerve fiber layer loss or defect in any quadrant left eye. Stable optic nerve OCT each eye with robust retinal nerve fiber layer thickness and without evidence of glaucomatous loss or defect. Will continue to monitor /es/ Carine Vizcaino OD CHIEF OF OPTOMETRY Signed: 06/11/2024 09:42 CARINE VIZCAINO CNTRL [facility]
--- OUTSIDE RECORDS SUMMARY | 2024-07-13 17:21 | XMS_ITS | Encounter Summary ---
Author Name [facility] [place] Organization [facility] [place] Address [address] [place] [address] Care Team Providers Care Oracle R12 Developer Name Role Phone TAVO LANDEROS Primary Care [...] PART A Apr 07, 2012 PART A [id number] [phone] LARON SMITH PATIENT MEDICARE (WNR) MEDICARE (M) PART B Apr 07, 2012 PART B [id number] [phone] LARON SMITH PATIENT MEDICARE (WNR) MEDICARE (M) PART B Apr 07, 2012 PART B [id number] LARON SMITH PATIENT MEDICARE (WNR) MEDICARE (M) PART A Apr 07, 2012 PART A [id number] [phone] LARON SMITHOR PATIENT MEDICARE (WNR) MEDICARE (M) PART A Apr 07, 2012 PART A [id number] [facility] LARON SMITH CTOR PATIENT MEDICARE (WNR) MEDICARE (M) PART B Apr 07, 2012 PART B [id number] LARON SMITH CTOR PATIENT FOR LIFE TFL* Jul 08, 2017 [id number] [phone] LARON SMITH CTOR PATIENT WPS (WNR) TRICA RE TFL Apr 07, 2012 TFL [id number] LARON SMITH CTTALIA PATIENT Selected Encounter This section includes the information on record at CT for the Encounter. Date/Time Encounter Type Encounter Description Reason Provider Source Jun 15, 2024 02:30 PM OFFICE O/P EST MOD 30 MIN PRIMARY CARE/MEDICINE ICD-10-CM L98.9 Disorder of the skin and subcutaneous tissue, unspecified TAVO TAPIA Onesimo Encounter Template Text not used by CT Assessments - Encounter Diagnoses This section includes the primary and secondary diagnoses documented for the Encounter. Date/Time Primary/Secondary Diagnosis Diagnosis Name Provider Source Jun 15, 2024 08:51 PM PRIMARY Disorder of the skin and subcutaneous tissue, unspecified TAVO DYER [place] Jun 15, 2024 08:51 PM SECONDARY Bicuspid aortic valve TAVO DYER [place] Jun 15, 2024 08:51 PM SECONDARY Other specified forms of tremor TAVO DYER [place] Jun 15, 2024 08:51 PM SECONDARY Personal history of other diseases of urinary system TAVO DYER [place] Jun 15, 2024 08:51 PM SECONDARY Radiculopathy, lumbar region TAVO DYER [place] Plan of Treatment: Future Appointments (+ 6 [...] 20 appointments. The data comes from all [facility]. Appointment Date/Time Appointment Type Appointme nt Facility Name Jun 17, 2024 12:30 PM AMBULATORY - MEDICINE [facility] [place] [facility] Jul 22, 2024 01:40 PM [facility] Active, Pending, and Scheduled Orders This section includes a listing of several types of active, pending, and scheduled orders, including clinic medications orders, diagnostic test orders, procedure orders and consult orders; where the start date of the order is 45 days before the date of the Encounter or 45 days after the date of theEncounter. The data comes from all [facility]. Test Date/Time Test Type Test Details Facility Name Jun 12, 2024 10:15 PM Consult Order [facility] [employer] [facility] [facility] [place] Jun 14, 2024 12:00 AM Laboratory - Chemi stry Order URINALYSIS URINE SP [place] Jun 20, 2024 08:54 PM Consult Order [facility]-UROLOG[facility] Lab Results: +/- 30 days of the encounter This section includes the Chemistry and Hematology Lab Results on record with CT for the patient. Radiology Reports and Pathology Reports are provided separately, in subsequent sections. Lab Results This section contains the Chemistry/Hematology Results that were resulted 30 days before or 30 daysafter the date of the Encounter. Date/Time Source Result Type Result - Unit Interpretation Reference Range Comment Jun 19, 2024 08:43 AM [place] VITAMIN B-1 (THIAMINE)-(QU) Specimen Ty pe: PLASMA Comment: Vitamin supplementation within 24 hours prior to blood draw may affect the accuracy of the results. This test was developed and its analytical performance characteristics have been determined by [employer] [place], [place]. It has not been cleared or approved by the U.S. Food and Drug Administration. This assay has been validated pursuant to the CLIA regulations and is used for clinical purposes. Test Performed by [employer] [employer] [place], [address] [place] [address] Juan Sanchez M.D., Ph.D., Director of Laboratories , CLIA [id number] TEST PERFORMED AT: , Ordering Provider: TAVO ROSAS Report Released Date/Time: Jun 14, 2024 11:22 AM Reporting Lab: [facility] [address] [facility] [address] Performing Lab: [facility] [address] [address] VITAMIN B-1 (THIAMINE)-(Q U) 6 nmol/L L 8-30 Jun 19, 2024 08:43 AM [place] PSA Specimen Type: SERUM No comment entered. Ordering Provider: TAVO ROSAS Report Released Date/Time: Jun 14, 2024 11:21 AM Reporting Lab: [facility] [address] [facility] [address] Performing Lab: [address] [address] PSA 4.27 ng/mL H 0.00-4.00 Jun 19, 2024 08:43 AM [place] VITAMIN B12 Specimen Type: SERUM No comment entered. Ordering Provider: TAVO ROSAS Report Released Date/Time: Jun 14, 2024 11:22 AM Reporting Lab: [facility] [address] [facility] [address] Performing Lab: [address] [address] VITAMIN B12 333 pg/mL 200-900 Jun 19, 2024 08:43 AM [place] HEMOGLOBIN A1C PANEL Specimen Type: BLOOD Comment: [...] Jun 11, 2024 03:04 PM Reporting Lab: [address] [address] Performing Lab: [address] [place] [address] HEMOGLOBIN A1C 5.3 4.0-5.6 Jun 19, 2024 08:43 AM [place] LIPID PANEL FASTING Specimen Type: SERUM No comment entered. Ordering Provider: TAVO ROSAS Report Released Date/Time: Jun 11, 2024 03:04 PM Reporting Lab: [facility] [address] [address] Performing Lab: [facility] [address] [address] CHOLESTEROL 147 mg/dL TRIGLYCERIDE 69 mg/dL 0-150 LDL calculated 91 mg/dL 0-129 CHOL/HDL 3.5 HDL CHOLESTEROL 42 mg/dL 40-60 Jun 19, 2024 08:43 AM [place] TSH Specimen Type: SERUM No comment entered. Ordering Provider: TAVO ROSAS Report Released Date/Time: Jun 11, 2024 03:04 PM Reporting Lab: [facility] [address] [address] Performing Lab: [facility] [address] TSH 0.99 u[IU]/mL 0.35-5.00 Jun 19, 2024 08:43 AM [place] BASIC METABOLIC PANEL (fasting) Specime n Type: SERUM No comment entered. Ordering Provider: TAVO ROSAS Report Released Date/Time: Jun 11, 2024 03:04 PM Reporting Lab: [facility] [address] Performing Lab[facility] [address] UREA NITROGEN 8 mg/dL 7-25 GLUCOSE 90 mg/dL 65-100 SODIUM 140 mmol/L 135-145 POTASSIUM 4.1 mmol/L 3.5-5.0 CHLORIDE 108 mmol/L 100-110 CO2 26 meq/L 20-30 CREATININE, Serum 0.86 mg/dL 0.50-1.40 eGFR(CKD-EPI 2020) >90 mL/min >60 Jun 19, 2024 08:43 AM [place] LIVER FUNCTION Specimen Type: SERUM No comment entered. Ordering Provider: TAVO ROSAS Report Released Date/Time: Jun 11, 2024 03:04 PM Reporting Lab: [address] [address] Performing Lab: [address] [address] PROTEIN,TOTAL 6.0 g/dL 6.0-8.3 ALBUMIN 3.7 g/dL 3.5-5.0 ALKALINE PHOSPHATASE 63 U/L 40-150 AST 15 U/L 5-34 ALT 14 U/L BILIRUBIN, TOTAL 0.5 mg/dL 0.2-1.2 Jun 19, 2024 08:43 AM [place] CBC AND DIFF (AUTO) Specimen Type: BLOOD No comment entered. Ordering Provider: TAVO ROSAS Report Released Date/Time: Jun 11, 2024 03:04 PM Reporting Lab: [address] [address] Performing Lab: [address] [address] WBC 5.24 10*3/uL 4.50-11.00 RBC 5.64 10*6/uL [...] 0.0 0.0-0.0 NRBC, ABS 0.00 10*3/uL 0.00-0.00 Vital Signs: All taken on the encounter date This section contains inpatient and outpatient Vital Signs collected on the date of the Encounter. Date/Time Temperature Pulse Blood Pressure Respiratory Rate SP02 Pain Height Weight Body Mass Index Source Jun 15, 2024 02:50 PM 98.6 66 123/71 98 184.2 25 [place] Social History: Smoking Status (Most current) and Tobacco Use (All prior to encounter date) This section includes the most current, and the historical, smoking and tobacco- related health factors from the CT facility where the Encounter took place. Current Smoking Status This section includes the most current smoking, or tobacco-related health factor, from the CT facility where the Encounter took place. Date/Time Current Smoking Status Comment Facil ity May 16, 2021 11:[address]-TOBACCO NEVER USED [place] Tobacco Use History This section includes a history of the smoking, or tobacco-related health factors, that were collected on or before the date of the Encounter. The data comes from the CT facility where the Encounter took place. Date/Time Smoking Status/Tobacco Use Comment F acility May 03, 2020 11:30 AM [facility]-TOBACCO NEVER USED [place] Oct 28, 2018 02:37 PM VA-TOBACCO NEVER USED [place] Oct 10, 2017 10:47 AM VA-TOBACCO NEVER USED [place] Apr 11, 2017 10:29 AM LIFETIME NON-TOBACCO USER [place] Jul 04, 2015 03:40 PM LIFETIME NON-TOBACCO USER [place] Jun 17, 2007 09:21 AM LIFETIME NON-TOBACCO USER [place] Encounter Notes: All associated encounter notes This section contains the clinical notes associated to the Encounter. Date/Time Encounter Note(s) Provider Source Jun 15, 2024 02:30 PM PHYSICIAN NOTE: LOCAL TITLE: MD NOTE STANDARD TITLE: PHYSICIAN NOTE DATE OF NOTE: JUN 15, 2024@14:30 ENTRY DATE: JUN 14, 2024@11:05:37 AUTHOR: Basil LANDEROS EXP COSIGNER: URGENCY: STATUS: COMPLETED NOTE Has ADDENDA Pt is 68 y/o M with PMH of bicuspid AV, chronic intermittent scrotal pain, BPH, elevated PSA, hematuria, colon polyps Last visit 08/[address] Other providers: -- [facility] Harish Hicks MD prostate Bx 05/2021 benign --eye [facility] --cardiology [facility] last 08/[facility]22 --neurology CT 02/2023 Reports feeling well # Multiple colon polyps, 11 tubular adenoma removed during colonoscopy February 2024 Plan to repeat colonoscopy in 1 year Patient referred to genetics by non [facility], but pt declined he was not in touch with his family father when he was 6, pt left house at age of 13 [address] pt has 2 children son and daughter 50 and 48 y/o pt not in touch with his son and he will notify his daughter - to make sure she starts screening #impetigo -see previous note for more details Has been resolved with mupirocin Patient using chlorhexidine as instructed #penile lesion erythematous maculopapular lesion at the cortez/glans per pt Developed overnight, Denies pain, itching No discharge tried mupirocin,topical steroid and antifungal rx without any effect now several more surrounding lesions Sexually active with his girlfriend of many years No concern for sexually transmitted disease #h/o elevated PSA -TRUS bx 05/2021 benign normalized PSA 3.7 denies any urinary sx , no pain with ejaculation #bicuspid valve- monitor with ECHO q2-32020 c/o atypical chest discomfort-cardiology work up negative denies CP, presycnope, SOB, LOVE # Essential tremor-noted years ago - h/o orthostatic hypotension some memory decline - displacing things no speech/swallowing issues Patient very concerned because he is two brothers dx with Parkinson's disease PROPRANOLOL HCL 20MG BID ESSENTIAL TREMOR --> tried it for 3 days and stopped due to sleepiness - did not notice any imporvement in tremor Seen by [facility] neurology prescribed primidone 50 mg-still has not tried taking it Vitamins B12, B1 repleted w/o improvement is Sx #LBP - not botersome lately, at baseline PAST MEDICAL HISTORY: -- Overweight -- [...] -- B12 deficiency -- B1 deficiency -- Multiple tubular adenomas 02/2024 11 TA removed -- Dermatitis, Atopic -- Open Angle Glaucoma Suspect -- Dry Eye Syndromes -- Arthralgia -- Osteoarthritis -- Backache -- herniated disc -- Major Depressive Disorder -- Insomnia PAST SURGICAL HISTORY: -- lipoma excision - arms/thing/abdomen ALLERGIES:BACTRIM-DS MEDICATIONS: --Non-VA ASPIRIN 81MG PROPRANOLOL HCL 20MG BID ESSENTIAL TREMOR --> tried it for 3 days and stopped due to sleepiness - did not find it helpful LIDOCAINE 5% PATCH FAMILY HISTORY: --DM:no --Cancer: no --SC:Brother: 51 SC --CVA:no --Mental Health/addiction: parkinson's - two brothers --Other:Mother: 80's MVA, HTN, SOCIAL HISTORY: --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 --Cohabitation:was x 45+ yrs, now, [...] n/v/c/d :no dysuria/hematuria/hesitancy +, nocturia 2x Skin: penile lesions as above PHYSICAL EXAM: Vital Signs: Blood Pressure: 123/71 (06/15/2024 14:50) 119/76 (08/23/2023 10:14) 119/77 (05/16/2021 11:01) 115/73 (06/11/2022 14:36) 107/66 (12/20/2022 09:00) Pulse: 66 (06/15/2024 14:50) Respiration: 18 Temperature: 98.6 F [37.0 C] (06/15/2024 14:50) Weight: BMI 24 184.2 lb [83.55 kg] (06/15/2024 14:50) 179.2 lb [81.28 kg] (08/23/2023 10:14) 185.2 lb [84.01 kg] (12/20/2022 09:00) 186.6 lb [84.64 kg] (06/11/2022 14:36) 182 lb [82.7 kg] (05/16/2021 11:01) 179.3 lb [81.5 kg] (05/03/2020 11:26) GA: pt is alert and oriented. NAD penile skin lesion: Several pink flattopped papules/plaques on the penile glans, cortez DERM: tattoes, piercings + CVS: RRR Lungs: CTA b/l abd: bs+, nt, nd Neuro: grossly intact LABORATORY: --08/2023-- WBC: 5.33 RBC: 5.73 H HGB: 13.2 HCT: 43.0 MCV: 75.0 L PLT: 199 VIT B1 (QU): 54 H VIT. B12 (WROX): 956 H NG PCR: NOT DETECTED CT PCR: NOT DETECTED RPR AUTO: Non Reactive HIV Ag/Ab COMBO: NON-REACTIVE HEPATITIS C AB: NON-REACTIVE IMAGING: #CT a/p 03/2020 no nephrolithiasis #EKG 10/2020 NSR at 75 bpm #ECHO 12/2020 Congenitally bicuspid aortic valve with no more than mild mixed stenosis- insufficiency; mean systolic gradient under 15 mm Hg and area over 2 sq cm. Normal sized aortic root and ascending aorta. NVSF LVEF 65%. Borderline LVH #ECHO 12/2023 Normal left and right ventricular size and normal systolic function LVEF 65% Normal diastolic function for age Aortic sclerosis with no aortic stenosis, with mild AR (AV not well visualized) No significant pericardial effusion #zio patch 14d 03/2021 Basic rhythm is [...] BPH, elevated PSA, hematuria #penile lesion: Unclear etiology, ?lichen planus -failed topical steroid,clotrimazole, mupirocin [facility]- no [facility] for [address] referral to urology for evaluation and biopsy # Essential tremor: -Evaluated by CT neurology 02/2023 and [facility] neurology 2023 -Trial of propranolol-in case of improvement likely ET ->pt tried BB for 3 days only - no improvement in sx- self dc/d due to ADR (sleepiness) B1, B12 repleted w/o improvement in sx seen by [facility] neurology -> prescribed primidone but pt did not try it yet due to concerns for potential SE - f/w neurology #bicuspid AV stable -pt denies any CP, LOVE, syncope ECHO 12/2020 ECHO 12/2023 mild AR, surveillance q2-3 y -c/w ASA #lumbar radiculopathy: not bothersome at this time XR LS 12/2022 Multilevel mild to moderate degenerative changes most prominent at the L2-3 level. -Meloxicam prn (SE reviewed with pt) -lidocaine patch -Fall precautions discussed #h/o hematuria: Asymptomatic -03/[address] A/P and cystoscopy was negative u/a negative 02/2023, check U/A #h/o elevated PSA -> normalized psa 3.7 (08/2023) prostate Bx in 2013 negative - he was treated for chronic prostatitis in the past TRUS Bx 05/2021 benign #B12 deficiency,B1 deficiency: Normalized on supplementation Healthcare maintenance: --Lipids: LDL 99 (12/2022) --Diabetes: A1C 5.1 (12/2022) --Colon CA (50-75): due 02/2025 History of polyp of colon August 01, 2007 [facility] 07/2018 2x TA 12/2022 FIT negative colonoscopy 02/2024 eleven TA removed size 3-7mm removed--> repeat colonoscopy in 1 year --> genetics referral placed by GI --Lung CA: n/a --PSA PSA 3.7 (08/2023) --AAA (smoker/65): n/a --Influenza (yrly): 2023 --moderna covid x3 --PCV20 2021 --PCV23: 2020 --RZV (>50yrs, x2): 2018,2018 --TDAP: 2020 --Hep C screen: 2023 neg --HIV screen: 2023 neg --DEXA: --Advanced Directives: Return to clinic to see me in 6 months, sooner PRN. Virtual ( ), F2F ( x ) ( x)fasting labs ordered prior to f/u --Please place referral to Dr. Hicks patient's urologist for penile lesion not resolving with topical steroids and antibiotics --please place reminder to put referral to GI in - pt due for next Colonoscopy 02/2025 Medication Reconciliation: Outpatient: Has the patient been taking medications as documented in the EMLR? YES: The patient has been taking medications as documented in the EMLR. Essential Medication List for Review used to complete this medication reconciliation. INCLUDED IN THIS LIST: Alphabetical list of active outpatient prescriptions dispensed from this CT (local) and dispensed from another [facility] or [facility] facility (remote) as well as inpatient [...] provider. /lele/ TAVO LANDEROS MD PHYSICIAN Signed: 06/15/2024 20:51 Receipt Acknowledged By: 06/20/2024 20:15 /jcarlos VASQUEZ RN REGISTERED NURSE 06/20/2024 ADDENDUM STATUS: COMPLETED Consult placed as requested and held for PCP signature. Self alert also set to renew colonoscopy consult in august. /jcarlos VASQUEZ RN REGISTERED NURSE Signed: 06/20/2024 20:14 06/28/2024 ADDENDUM STATUS: COMPLETED --06/2024-- WBC: 5.24 HGB: 13.1 HCT: 41.7 MCV: 73.9 L PLT: 181 TSH (Access): 0.99 HGB A1C (WR): 5.3 GLUCOSE: 90 UREA NITROGEN: 8 CREATININE-EGFR: 0.86 eGFR CKD-EPI 2020: >90 SODIUM: 140 POTASSIUM: 4.1 CHLORIDE: 108 CO2: 26 PROTEIN,TOTAL: 6.0 ALBUMIN: 3.7 ALKALINE PHOSPHATASE: 63 BILIRUBIN,TOT.: 0.5 SGOT: 15 SGPT: 14 CHOLESTEROL: 147 TRIGLYCERIDE: 69 LDL CHOL: 91 CHOL/HDL RATIO: 3.5 HDL: 42 VIT B1 (QU): 6 L ---> c/w supplementation VIT. B12 (WROX): 333 ---> c/w supplementation SERUM Jun 19 Aug 19 Dec 20 May 10 Reference 2023 2023 2022 2021 PSA 4.27 H 3.73 3.05 3.22 ng/mL 0 - 4 elevated PSA to f/w urology 07/2024 /lele/ TAVO LANDEROS MD PHYSICIAN Signed: 06/28/2024 21:57 ALIRIO LANDEROS [place] Jun 08, 2024 09:35 AM ADMINISTRATIVE NOT E: LOCAL TITLE: ADMINISTRATIVE NOTE STANDARD TITLE: ADMINISTRATIVE NOTE DATE OF NOTE: JUN 08, 2024@09:35 ENTRY DATE: JUN 08, 2024@09:35:05 AUTHOR: TOÑA MARTINEZ EXP COSIGNER: URGENCY: STATUS: COMPLETED [facility] [address] [place] [id number] [phone] * DEVORA GAXIOLA [address], [place] [address] Date: JUN 08, 2024 re: This is a reminder of your upcoming PCP appt with TAVO LANDEROS Appointment Date: Jun@14:30 Appointment Type: In-person visit Fasting blood work NON fasting blood work CONFIRMED APPT WITH THE Sincerely, Office Staff for: TAVO LANDEROS Primary Care Provider [facility] [address] [place] [address] T [phone] F [phone] Upcoming Appointments: 06/11/2024 09:30 CWM/NO/OPTOMETRY/CARRILLO 06/15/2024 14:30 CWM/SO/PACT 5 APPOINTMENT ABBREVIATION VAIL (SPOPC OR SO = [place], [address] [place] [address]) (GOPC OR GO = [address]) (NHM or NO = [facility]) (VVC - Video Call) (Tel-X Telephone Visit) (TH - Telehealth) /lele/ TOÑA STEPHENS Signed: 06/08/2024 09:35 TOÑA MARTINEZ [place]
--- OUTSIDE RECORDS SUMMARY | 2024-07-13 17:21 | XMS_ITS ---
Author Name [facility] [place] Address [address] [place] [id number] Care Team Providers Care Grease Worker Name Role Phone TAVO LANDEROS Primary Care [...] PART A Apr 07, 2012 PART A [id number] LARON SMITH PATIENT MEDICARE (WNR) MEDICARE (M) PART B Apr 07, 2012 PART B [id number] 71A LARON SMITH CTOR PATIENT MEDICARE (WNR) MEDICARE (M) PART B Apr 07, 2012 PART B [id number] 71A LARON SMITH CTOR PATIENT MEDICARE (WNR) MEDICARE (M) PART A Apr 07, 2012 PART A [id number] 71A LARON SMITH CTOR PATIENT MEDICARE (WNR) MEDICARE (M) PART A Apr 07, 2012 PART A [id number] LARON SMITH CTOR PATIENT MEDICARE (WNR) MEDICARE (M) PART B Apr 07, 2012 PART B [id number] LARON SMITH CTOR PATIENT FOR LIFE TFL* Jul 08, 2017 [id number] LARON SMITH CTOR PATIENT WPS (WNR) TRICA RE TFL Apr 07, 2012 TFL [id number] LARON SMITH CTOR PATIENT Selected Encounter This section includes the information on record at [place] for the Encounter. Date/Time Encounter Type Encounter Description Reason Pro vider Source Jun 15, 2024 02:30 PM Outpatient Encounter PRIMARY CARE/MEDICINE IHE Encounter Template Text not used by [place] Plan of Treatment: Future Appointments (+ 6 months) and Future Tests (+/- 45 days) The Plan of Treatment section includes future care activities for the patient from all [place] treatmentfacilities. This section includes future appointments and future orders which are active, pending or scheduled. Future Appointments This section includes appointments that were scheduled to occur 6 months from the date of the Encounter, up to a maximum of 20 appointments. The data comes from all [place] treatment facilities. Appointment Date/Time Appointment Type Appointme nt Facility Name Jun 17, 2024 12:30 PM AMBULATORY - MEDICINE [facility] Jul 22, 2024 01:40 PM AMBULATORY - MEDICINE [facility] Active, Pending, and Scheduled Orders This section includes a listing of several types of active, pending, and scheduled orders, including clinic medications orders, diagnostic test orders, procedure orders and consult orders; where the start date of the order is 45 days before the date of the Encounter or 45 days after the date of theEncounter. The data comes from all [place] treatment facilities. Test Date/Time Test Type Test Details Facility Name Jun 12, 2024 10:15 PM Consult Order COMMUNITY CARE-NEUROLOGY [facility] Jun 14, 2024 12:00 AM Laboratory - Chemi stry Order URINALYSIS URINE [facility] Jun 20, 2024 08:54 PM Consult Order COMMUNITY CARE-UROLOGY [facility] Lab Results: +/- 30 days of the encounter This section includes the Chemistry and Hematology Lab Results on record with [place] for the patient. Radiology Reports and Pathology Reports are provided separately, in subsequent sections. Lab Results This section contains the Chemistry/Hematology Results that were resulted 30 days before or 30 daysafter the date of the Encounter. Date/Time Source Result Type Result - Unit Interpretation Reference Range Comment Jun 19, 2024 08:43 AM [place] VITAMIN B-1 (THIAMINE)-(QU) Specimen Ty pe: PLASMA Comment: Vitamin supplementation within 24 hours prior to blood draw may affect the accuracy of the results. This test was developed and its analytical performance characteristics have been determined by [employer] [place], [place]. It has not been cleared or approved by the U.S. Food and Drug Administration. This assay has been validated pursuant to the CLIA regulations and is used for clinical purposes. Test Performed by [facility], [facility], [address] [place] [address] Juan Sanchez M.D., Ph.D., Director of Laboratories , CLIA [id number] TEST PERFORMED AT: , Ordering Provider: TAVO ROSAS Report Released Date/Time: Jun 14, 2024 11:22 AM Reporting Lab: [address] [address] Performing Lab: [facility] [address] [address] VITAMIN B-1 (THIAMINE)-(Q U) 6 nmol/L L 8-30 Jun 19, 2024 08:43 AM [place] PSA Specimen Type: SERUM No comment entered. Ordering Provider: TAVO ROSAS Report Released Date/Time: Jun 14, 2024 11:21 AM Reporting Lab: [facility] [address] [facility] [address] Performing Lab: [address] [address] PSA 4.27 ng/mL H 0.00-4.00 Jun 19, 2024 08:43 AM [place] VITAMIN B12 Specimen Type: SERUM No comment entered. Ordering Provider: TAVO ROSAS Report Released Date/Time: Jun 14, 2024 11:22 AM Reporting Lab: [facility] [address] [address] Performing Lab: [facility] [address] [address] VITAMIN B12 333 pg/mL 200-900 Jun 19, 2024 08:43 AM [place] HEMOGLOBIN A1C PANEL Specimen Type: BLOOD Comment: [...] Jun 11, 2024 03:04 PM Reporting Lab: [facility] [address] [address] Performing Lab: [facility] [address] [address] HEMOGLOBIN A1C 5.3 4.0-5.6 Jun 19, 2024 08:43 AM [place] TSH Specimen Type: SERUM No comment entered. Ordering Provider: TAVO ROSAS Report Released Date/Time: Jun 11, 2024 03:04 PM Reporting Lab: [facility] [address] Performing Lab: [facility] [address] TSH 0.99 u[IU]/mL 0.35-5.00 Jun 19, 2024 08:43 AM [place] LIPID PANEL FASTING Specimen Type: SERUM No comment entered. Ordering Provider: TAVO ROSAS Report Released Date/Time: Jun 11, 2024 03:04 PM Reporting Lab: [facility] [address] Performing Lab: [facility] [address] [facility] [address] CHOLESTEROL 147 mg/dL TRIGLYCERIDE 69 mg/dL 0-150 LDL calculated 91 mg/dL 0-129 CHOL/HDL 3.5 HDL CHOLESTEROL 42 mg/dL 40-60 Jun 19, 2024 08:43 AM [place] LIVER FUNCTION Specimen Type: SERUM No comment entered. Ordering Provider: TAVO ROSAS Report Released Date/Time: Jun 11, 2024 03:04 PM Reporting Lab: [address] [address] Performing Lab: [address] [address] PROTEIN,TOTAL 6.0 g/dL 6.0-8.3 ALBUMIN 3.7 g/dL 3.5-5.0 ALKALINE PHOSPHATASE 63 U/L 40-150 AST 15 U/L 5-34 ALT 14 U/L BILIRUBIN, TOTAL 0.5 mg/dL 0.2-1.2 Jun 19, 2024 08:43 AM [place] BASIC METABOLIC PANEL (fasting) Specime n Type: SERUM No comment entered. Ordering Provider: TAVO ROSAS Report Released Date/Time: Jun 11, 2024 03:04 PM Reporting Lab: [address] [address] Performing Lab: [address] [address] UREA NITROGEN 8 mg/dL 7-25 GLUCOSE 90 mg/dL 65-100 SODIUM 140 mmol/L 135-145 POTASSIUM 4.1 mmol/L 3.5-5.0 CHLORIDE 108 mmol/L 100-110 CO2 26 meq/L 20-30 CREATININE, Serum 0.86 mg/dL 0.50-1.40 eGFR(CKD-EPI 2020) >90 mL/min >60 Jun 19, 2024 08:43 AM [place] CBC AND DIFF (AUTO) Specimen Type: BLOOD No comment entered. Ordering Provider: TAVO ROSAS Report Released Date/Time: Jun 11, 2024 03:04 PM Reporting Lab: [facility] [address] [facility] [address] Performing Lab: [facility] [address] [facility] [address] WBC 5.24 10*3/uL 4.50-11.00 RBC 5.64 10*6/uL [...] and tobacco- related health factors from the [place] facility where the Encounter took place. Current Smoking Status This section includes the most current smoking, or tobacco-related health factor, from the [place] facility where the Encounter took place. Date/Time Current Smoking Status Comment Ely izquierdo Aug 12, 2023 10:47 AM VA-TOBACCO NEVER USED [facility] Tobacco Use History This section includes a history of the smoking, or tobacco-related health factors, that were collected on or before the date of the Encounter. The data comes from the [place] facility where the Encounter took place. Date/Time Smoking Status/Tobacco Use Comment F acility May 02, 2022 12:18 PM VA-TOBACCO NEVER USED [place] [facility] Encounter Notes: All associated encounter notes This section contains the clinical notes associated to the Encounter. Date/Time Encounter Note(s) Provider Source Jun 15, 2024 03:00 PM PREVENTIVE MEDICIN E NURSING NOTE: LOCAL TITLE: CLINICAL REMINDERS/NURSING STANDARD TITLE: PREVENTIVE MEDICINE NURSING NOTE DATE OF NOTE: JUN 15, 2024@15:00 ENTRY DATE: JUN 15, 2024@15:00:05 AUTHOR: ELINOR URIBE EXP COSIGNER: URGENCY: STATUS: COMPLETED Influenza Immunization: The patient has received the seasonal influenza vaccine for the current season at another location. Documented: INFLUENZA, UNSPECIFIED FORMULATION Historical Date Administered: May 2024 Exact date unknown Information Source: SOURCE UNSPECIFIED Advance Directive Screen MH AD: Patient has an up-to-date Advance Directive at an outside, non-nh facility and was asked to forward a copy to his/her clinician. Comment: advised to bring copy /lele/ ELINOR URIBE LPN LPN Signed: 06/15/2024 15:04 ELINOR URIBE
--- OUTSIDE RECORDS SUMMARY | 2024-07-13 17:21 | XMS_ITS | Encounter Summary ---
Author Name [facility] [place] Address [address] [place] [id number] Care Team Providers Care Camera Repairman Name Role Phone TAVO LANDEROS Primary Care [...] PART A Apr 07, 2012 PART A [id number] [phone] LARON SMITH PATIENT MEDICARE (WNR) MEDICARE (M) PART B Apr 07, 2012 PART B [id number] [phone] LARON SMITH CTOR PATIENT MEDICARE (WNR) MEDICARE (M) PART A Apr 07, 2012 PART A [id number] LARON SMITH CTOR PATIENT MEDICARE (WNR) MEDICARE (M) PART B Apr 07, 2012 PART B [id number] LARON SMITH CTOR PATIENT MEDICARE (WNR) MEDICARE (M) PART A Apr 07, 2012 PART A [id number] [facility] LARON SMITH CTTALIA PATIENT MEDICARE (WNR) MEDICARE (M) PART B Apr 07, 2012 PART B [id number] [facility] LARON SMITH PATIENT FOR LIFE TFL* Jul 08, 2017 [id number] LARON SMITH CTOR PATIENT WPS (WNR) TRICA RE TFL Apr 07, 2012 TFL [id number] [phone] LARON SMITH PATIENT Selected Encounter This section includes the information on record at [place] for the Encounter. Date/Time Encounter Type Encounter Description Reason Provider Source Jun 11, 2024 09:30 AM COMPRE OPH EXAM EST PT 1/> OPTOMETRY ICD-10-CM H25.813 Combined forms of age-related cataract, bilateral BEULAH VIZCAINO [facility] Encounter Template Text not used by [place] Assessments - Encounter Diagnoses This section includes the primary and secondary diagnoses documented for the Encounter. Date/Time Primary/Secondary Diagnosis Diagnosis Name Provider Source Jun 11, 2024 09:39 AM PRIMARY Combined forms of age-related cataract, bilateral BEULAH VIZCAINO [place] [facility] [place] [facility] Jun 11, 2024 09:39 AM SECONDARY Meibomian gland dysfnct left eye, upper and lower eyelids BEULAH VIZCAINO [place] [facility] [place] [facility] Jun 11, 2024 09:39 AM SECONDARY Meibomian gland dysfnct right eye, upper and lower eyelids BEULAH VIZCAINO [place] [facility] [place] [facility] Jun 11, 2024 09:39 AM SECONDARY Open angle with borderline findings, low risk, bilateral BEULAH VIZCAINO [facility] [place] [facility] Plan of Treatment: Future Appointments (+ 6 months) and Future Tests (+/- 45 days) The Plan of Treatment section includes future care activities for the patient from all [place] treatmentfacilities. This section includes future appointments and future orders which are active, pending or scheduled. Future Appointments This section includes appointments that were scheduled to occur 6 months from the date of the Encounter, up to a maximum of 20 appointments. The data comes from all [facility]. Appointment Date/Time Appointment Type Appointme nt Facility Name Jun 15, 2024 02:30 PM AMBULATORY - MEDICINE [facility] Jun 17, 2024 12:30 PM AMBULATORY - MEDICINE [place] [facility] [place] [facility] Jul 22, 2024 01:40 PM AMBULATORY - MEDICINE [facility] Active, Pending, and Scheduled Orders This section includes a listing of several types of active, pending, and scheduled orders, including clinic medications orders, diagnostic test orders, procedure orders and consult orders; where the start date of the order is 45 days before the date of the Encounter or 45 days after the date of theEncounter. The data comes from all [facility]. Test Date/Time Test Type Test Details Facility Name Jun 12, 2024 10:15 PM Consult Order [facility] Respiratory Therapy Assistant's [facility] Jun 14, 2024 12:00 AM Laboratory - Chemi stry Order URINALYSIS URINE [facility] [place] Jun 20, 2024 08:54 PM Consult Order [facility]-UROLOGY [facility] Respiratory Therapy Assistants [facility] Lab Results: +/- 30 days of the encounter This section includes the Chemistry and Hematology Lab Results on record with [place] for the patient. Radiology Reports and Pathology Reports are provided separately, in subsequent sections. Lab Results This section contains the Chemistry/Hematology Results that were resulted 30 days before or 30 daysafter the date of the Encounter. Date/Time Source Result Type Result - Unit Interpretation Reference Range Comment Jun 19, 2024 08:43 AM [place] VITAMIN B-1 (THIAMINE)-(QU) Specimen Ty pe: PLASMA Comment: Vitamin supplementation within 24 hours prior to blood draw may affect the accuracy of the results. This test was developed and its analytical performance characteristics have been determined by [facility] [place], [place]. It has not been cleared or approved by the U.S. Food and Drug Administration. This assay has been validated pursuant to the CLIA regulations and is used for clinical purposes. Test Performed by Carlos Perry, [facility], [address] [place] [address] Juan Sanchez M.D., Ph.D., Director of Laboratories , CLIA [id number] TEST PERFORMED AT: , Ordering Provider: TAVO ROSAS Report Released Date/Time: Jun 14, 2024 11:22 AM Reporting Lab: [facility] [address] [facility] [address] Performing Lab: [facility] [address] [address] VITAMIN B-1 (THIAMINE)-(Q U) 6 nmol/L L 8-30 Jun 19, 2024 08:43 AM [place] PSA Specimen Type: SERUM No comment entered. Ordering Provider: TAVO ROSAS Report Released Date/Time: Jun 14, 2024 11:21 AM Reporting Lab: [facility] [address] [facility] [address] Performing Lab: [address] [address] PSA 4.27 ng/mL H 0.00-4.00 Jun 19, 2024 08:43 AM [place] VITAMIN B12 Specimen Type: SERUM No comment entered. Ordering Provider: TAVO ROSAS Report Released Date/Time: Jun 14, 2024 11:22 AM Reporting Lab: [facility] [address] [facility] [address] Performing Lab: [address] [address] VITAMIN B12 333 pg/mL 200-900 Jun 19, 2024 08:43 AM [place] HEMOGLOBIN A1C PANEL Specimen Type: BLOOD Comment: [...] Jun 11, 2024 03:04 PM Reporting Lab: [address] [address] Performing Lab: [address] [address] HEMOGLOBIN A1C 5.3 4.0-5.6 Jun 19, 2024 08:43 AM [place] LIPID PANEL FASTING Specimen Type: SERUM No comment entered. Ordering Provider: TAVO ROSAS Report Released Date/Time: Jun 11, 2024 03:04 PM Reporting Lab: [address] [address] Performing Lab: [address] [address] CHOLESTEROL 147 mg/dL TRIGLYCERIDE 69 mg/dL 0-150 LDL calculated 91 mg/dL 0-129 CHOL/HDL 3.5 HDL CHOLESTEROL 42 mg/dL 40-60 Jun 19, 2024 08:43 AM [place] LIVER FUNCTION Specimen Type: SERUM No comment entered. Ordering Provider: TAVO ROSAS Report Released Date/Time: Jun 11, 2024 03:04 PM Reporting Lab: [address] [address] Performing Lab: [address] [address] PROTEIN,TOTAL 6.0 g/dL 6.0-8.3 ALBUMIN 3.7 g/dL 3.5-5.0 ALKALINE PHOSPHATASE 63 U/L 40-150 AST 15 U/L 5-34 ALT 14 U/L BILIRUBIN, TOTAL 0.5 mg/dL 0.2-1.2 Jun 19, 2024 08:43 AM [place] TSH Specimen Type: SERUM No comment entered. Ordering Provider: TAVO ROSAS Report Released Date/Time: Jun 11, 2024 03:04 PM Reporting Lab: [address] [address] Performing Lab: [address] [address] TSH 0.99 u[IU]/mL 0.35-5.00 Jun 19, 2024 08:43 AM [place] BASIC METABOLIC PANEL (fasting) Specime n Type: SERUM No comment entered. Ordering Provider: TAVO ROSAS Report Released Date/Time: Jun 11, 2024 03:04 PM Reporting Lab: [address] [address] Performing Lab: [address] [address] UREA NITROGEN 8 mg/dL 7-25 GLUCOSE 90 mg/dL 65-100 SODIUM 140 mmol/L 135-145 POTASSIUM 4.1 mmol/L 3.5-5.0 CHLORIDE 108 mmol/L 100-110 CO2 26 meq/L 20-30 CREATININE, Serum 0.86 mg/dL 0.50-1.40 eGFR(CKD-EPI 2020) >90 mL/min >60 Jun 19, 2024 08:43 AM [place] CBC AND DIFF (AUTO) Specimen Type: BLOOD No comment entered. Ordering Provider: TAVO ROSAS Report Released Date/Time: Jun 11, 2024 03:04 PM Reporting Lab: [address] [address] Performing Lab: [address] [address] WBC 5.24 10*3/uL 4.50-11.00 RBC 5.64 10*6/uL [...] and tobacco- related health factors from the [place] facility where the Encounter took place. Current Smoking Status This section includes the most current smoking, or tobacco-related health factor, from the [place] facility where the Encounter took place. Date/Time Current Smoking Status Comment Ely izquierdo Aug 12, 2023 10:47 AM [place]-TOBACCO NEVER USED [facility] Tobacco Use History This section includes a history of the smoking, or tobacco-related health factors, that were collected on or before the date of the Encounter. The data comes from the [place] facility where the Encounter took place. Date/Time Smoking Status/Tobacco Use Comment Nawaf aravind May 02, 2022 12:18 PM VA-TOBACCO NEVER USED [facility] Encounter Notes: All associated encounter notes This [...] * 30. Overweight 31. Dizziness (SNOMED CT [id number]) 32. Acne 33. herniated disc 34. Male [...] with full extraocular motility and full confrontation littel to finger counting each eye Current Wear: OD: [place] -2.75 axis 085 OS: +0.75 -2.75 axis 080 Refraction: OD: -0.25 -2.75 axis 085 20/20 OS: +0.50 -2.75 axis 080 20/20 Tonometry: 12 OD 12 OS Time: 9:10 AM dilated with tropicamide 1% each eye after dilation warning given and verbal consent obtained PreTreatment IOP: OD OS Pachymetry: Previously measured 501 ??m right eye 499 ??m left eye Significantly thinner than average each [...] of active outpatient prescriptions dispensed from this [place] (local) and dispensed from another [place] or [facility] facility (remote) as well as inpatient [...] JLV. Allergies/ADRs (Tool #5) FACILITY ALLERGY/ADR -------- [facility] NO KNOWN ALLERGIES [place] [facility] [place] [facility] BACTRIM-DS Med Recon NoGlossary (Tool #1) INCLUDED IN THIS LIST: Alphabetical list of active outpatient prescriptions dispensed from this [place] (local) and dispensed from another [place] or [facility] facility (remote) as well as inpatient orders (local pending and active), local clinic medications, locally documented non-VA medications, and local prescriptions that have or been discontinued in the past 90 days. Non-VA Meds Last Documented On: Apr 14, 2013 NOTE The display of VA prescriptions dispensed from another [place] or [facility] facility (remote) is limited to active outpatient prescription entries matched to National Drug File at the originating site and may not include some items such as investigational drugs, compounds, etc. NOT INCLUDED IN THIS LIST: Medications self-entered by the patient into personal health records (i.e. [place]) are NOT included in this list. Non-VA medications documented outside this [place], remote inpatient orders (regardless of status) and [...] FOR PREVENTION OF VITAMIN B12 DEFICIENCY Rx# [id number] Last Released: Qty/ Supply: Rx Expiration Date: 09/01/24 Refills Remainin Indication: FOR PREVENTION OF VITAMIN B12 DEFICIENCY SUPPLIES Declines printed copy of medication list now. /lele/ Carine Vizcaino OD CHIEF OF OPTOMETRY Signed: 06/11/2024 09:39 [facility] VI[facility]CAINO [facility]
--- OUTSIDE RECORDS SUMMARY | 2024-07-13 17:21 | XMS_ITS | Encounter Summary ---
Author Name [place] Address [address] [place] [id number] Care Team Providers Care Coal Passer Name Role Phone TAVO LADNEROS Primary Care Provide r Unavailable Insurance Providers: [...] PART A Apr 07, 2012 PART A [id number] [phone] LARON SMITH PATIENT MEDICARE (WNR) MEDICARE (M) PART B Apr 07, 2012 PART B [id number] [phone] LARON SMITHOR PATIENT MEDICARE (WNR) MEDICARE (M) PART B Apr 07, 2012 PART B [id number] [phone] LARON SMITHOR PATIENT MEDICARE (WNR) MEDICARE (M) PART A Apr 07, 2012 PART A [id number] LARON SMITH CTOR PATIENT MEDICARE (WNR) MEDICARE (M) PART A Apr 07, 2012 PART A [id number] LARON SMITH CTT[place] PATIENT MEDICARE (WNR) MEDICARE (M) PART B Apr 07, 2012 PART B [id number] LARON SMITH C[place] PATIENT FOR LIFE TFL* Jul 08, 2017 [id number] LARON SMITH CTTALIA PATIENT WPS (WNR) TRICA RE TFL Apr 07, 2012 TFL [id number] [phone] LARON SMITH CTTALIA PATIENT Selected Encounter This section includes the information on record at [place] for the Encounter. Date/Time Encounter Type Encounter Description Reason Pro vider Source Dec 10, 2023 12:00 AM Outpatient Encounter COMMUNITY CARE CONSULT IHE Encounter Template Text not used by [place] Plan of Treatment: Future Appointments (+ 6 months) and Future Tests (+/- 45 days) The Plan of Treatment section includes future care activities for the patient from all [place] treatmentfacilities. This section includes future appointments and future orders which are active, pending or scheduled. Future Appointments This section includes appointments that were scheduled to occur 6 months from the date of the Encounter, up to a maximum of 20 appointments. The data comes from all [place] treatment facilities. Appointment Date/Time Appointment Type Appointme nt Facility Name Dec 18, 2023 09:45 AM AMBULATORY - NONE [facility] Mar 03, 2024 11:00 AM AMBULATORY - NONE [facility] Social History: Smoking Status (Most current) and Tobacco Use (All prior to encounter date) This section includes the most current, and the historical, smoking and tobacco- related health factors from the [place] facility where the Encounter took place. Current Smoking Status This section includes the most current smoking, or tobacco-related health factor, from the [place] facility where the Encounter took place. Date/Time Current Smoking Status Comment Ely izquierdo Aug 12, 2023 10:47 AM [place]-TOBACCO NEVER USED [facility] Tobacco Use History This section includes a history of the smoking, or tobacco-related health factors, that were collected on or before the date of the Encounter. The data comes from the [place] facility where the Encounter took place. Date/Time Smoking Status/Tobacco Use Comment F acility May 02, 2022 12:18 PM [facility]TOBACCO [facility] Encounter Notes: All associated encounter notes This section contains the clinical notes associated to the Encounter. Date/Time Encounter Note(s) Provider Source Dec 10, 2023 12:00 AM NONVA CONSULT: LOCAL TITLE: COMMUNITY CARE-CONSULT RESULT NOTE STANDARD TITLE: NONVA CONSULT DATE OF NOTE: DEC 10, 2023 ENTRY DATE: JAN 23, 2024@10:58:24 AUTHOR: YUDELKA WHITE EXP COSIGNER: URGENCY: STATUS: COMPLETED VistA Imaging - Scanned Document SCANNED DOCUMENT SIGNATURE NOT REQUIRED Electronically Filed: 01/23/2024 by: YUDELKA SOLO [facility]
== END 2024-07-13 15:52 | disposition home or self-care (01) ==
PROVIDERS: PCP Internal Medicine; Visit Provider Psychiatry & Neurology Neurology
DX: G25.0 Essential tremor (principal); G25.2 Other specified forms of tremor; R42 Dizziness and giddiness
CPT/HCPCS: 99214; G2211

== ENCOUNTER 2025-01-04 10:28 | Outpatient (AMB) | payer OTHER, SELFPAY ==
--- OUTSIDE RECORDS SUMMARY | 2024-06-11 05:30 | XMS_ITS ---
Author Name [facility] Organization [facility] Address [address] [place] [address] Care Team Providers Care Reservoir Caretaker Name Role Phone TAVO LANDEROS Primary Care Provide r Unavailable Insurance Providers: All historical and current Section Date Range: From patient's date of to the date document was created. This section includes the names of all active insurance providers for the patient. Insurance Provider Type of Coverage Plan Name Start of Policy Coverage End of Policy Coverage Group Number Member ID Insurance Provider's Telephone Number Policy Fournier's Name Patient's Relationship to Policy Fournier [employer] PREFERRED PROVIDER ORGANIZAT ION (PPO) [employer] P[employer]I [place]. Jan 05, 2000 [id number] LARON SMITH CTOR PATIENT MEDICARE (WNR) MEDICARE (M) PART A Apr 07, 2012 PART A [id number] LARON SMITH CTOR PATIENT MEDICARE (WNR) MEDICARE (M) PART B Apr 07, 2012 PART B [id number] LARON SMITH CTOR PATIENT MEDICARE (WNR) MEDICARE (M) PART A Apr 07, 2012 PART A [id number] LARON SMITH CTOR PATIENT MEDICARE (WNR) MEDICARE (M) PART B Apr 07, 2012 PART B [id number] [phone] LARON SMITH [employer]OR PATIENT MEDICARE (WNR) MEDICARE (M) PART A Apr 07, 2012 PART A [id number] LARON SMITH CTOR PATIENT MEDICARE (WNR) MEDICARE (M) PART B Apr 07, 2012 PART B [id number] LARON SMITH CTOR PATIENT MEDICARE (WNR) MEDICARE (M) PART B Apr 07, 2012 PART B [id number] [facility] LARON SMITH CTOR PATIENT MEDICARE (WNR) MEDICARE (M) PART A Apr 07, 2012 PART A [id number] [facility] LARON SMITH CTOR PATIENT FOR LIFE TFL* Jul 08, 2017 [id number] LARON SMITH PATIENT WPS (WNR) TRICA RE TFL Apr 07, 2012 [id number] LARON SMITH PATIENT Selected Encounter This section includes the information on record at [place] for the Encounter. Date/Time Encounter Type Encounter Description Reason Provider Source Jun 11, 2024 09:30 AM COMPRE OPH EXAM EST PT 1/> OPTOMETRY ICD-10-CM H25.813 Combined forms of age-related cataract, bilateral EBULAH VIZCAINO IHE Encounter Template Text not used by [place] Assessments - Encounter Diagnoses This section includes the primary and secondary diagnoses documented for the Encounter. Date/Time Primary/Secondary Diagnosis Diagnosis Name Provider Source Jun 11, 2024 09:39 AM PRIMARY Combined forms of age-related cataract, bilateral BEULAH VIZCAINO [place] [facility] [place] [facility] Jun 11, 2024 09:39 AM SECONDARY Meibomian gland dysfnct left eye, upper and lower eyelids BEULAH VIZCAINO [facility] [place] [facility] Jun 11, 2024 09:39 AM SECONDARY Meibomian gland dysfnct right eye, upper and lower eyelids BEULAH VIZCAINO [place] [facility] [place] [facility] Jun 11, 2024 09:39 AM SECONDARY Open angle with borderline findings, low risk, bilateral BEULAH VIZCAINO [facility] Plan of Treatment: Future Appointments (+ 6 months) and Future Tests (+/- 45 days) The Plan of Treatment section includes future care activities for the patient from [facility]. This section includes future appointments and future orders which are active, pending or scheduled. Future Appointments This section includes appointments that were scheduled to occur 6 months from the date of the Encounter, up to a maximum of 20 appointments. The data comes from all [facility]. Appointment Date/Time Appointment Type Appointme nt Facility Name Jun 15, 2024 02:30 PM AMBULATORY - MEDICINE [facility] Jun 17, 2024 12:30 PM AMBULATORY - MEDICINE [facility] Jul 22, 2024 01:40 PM AMBULATORY - MEDICINE [facility] Active, Pending, and Scheduled Orders This section includes a listing of several types of active, pending, and scheduled orders, including clinic medications orders, diagnostic test orders, procedure orders and consult orders; where the start date of the order is 45 days before the date of the Encounter or 45 days after the date of theEncounter. The data comes from all [facility]. Test Date/Time Test Type Test Details Facility Name Jun 14, 2024 12:00 AM Laboratory - Chemistry Order URI NALYSIS URINE SP [facility] Lab Results: +/- 30 days of the encounter This section includes the Chemistry and Hematology Lab Results on record with AL for the patient. Radiology Reports and Pathology Reports are provided separately, in subsequent sections. Lab Results This section contains the Chemistry/Hematology Results that were resulted 30 days before or 30 daysafter the date of the Encounter. Date/Time Source Result Type Result - Unit Interpretation Reference Range Specimen Type Comment Jun 19, 2024 08:43 AM [facility] VITAMIN B-1 (THIAMINE)-(QU) PLASMA Spe cimen Type: PLASMA Comment: Vitamin supplementation within 24 hours prior to blood draw may affect the accuracy of the results. This test was developed and its analytical performance characteristics have been determined by [facility] [place] It has not been cleared or approved by the U.S. Food and Drug Administration. This assay has been validated pursuant to the CLIA regulations and is used for clinical purposes. Test Performed by [facility], [facility], [address] [place], [place] Juan Sanchez M.D., Ph.D., Director of Laboratories , CLIA [id number] TEST PERFORMED AT: , Ordering Provider: TAVO LANDEROS Report Released Date/Time: Jun 14, 2024 11:22 AM Reporting Lab: [facility] [address] [phone] Performing Lab: [facility] [address] [address] VITAMIN B-1 (THIAMINE)-(QU) 6 nmol/L L 8-3 0 Jun 19, 2024 08:43 AM [facility] PSA SERUM Sp ecimen Type: SERUM No comment entered. Ordering Provider: TAVO LANDEROS Report Released Date/Time: Jun 14, 2024 11:21 AM Reporting [facility] [address] [address] Performing Lab: [address] [address] PSA 4.27 ng/mL H 0.00-4.00 Jun 19, 2024 08:43 AM [facility] VITAMIN B12 SERUM Specimen Type: S JAMIE No comment entered. Ordering Provider: TAVO LANDEROS Report Released Date/Time: Jun 14, 2024 11:22 AM Reporting Lab: [facility] [address] [address] Performing Lab: [address] [address] VITAMIN B12 333 pg/mL 200-900 Jun 19, 2024 08:43 AM [facility] HEMOGLOBIN A1C PANEL BLOOD Specimen T ype: BLOOD Comment: Values obtained from A1C measurements can vary. For atypical A1C assays, a reported value of 7.0 could actually be between 6.72 and 7.28 if measured by a reference method. A reported value of 9.0 could actually be between 8.73 and 9.27. Ref: http://www.ngsp.org/CAPdata.asp Ordering Provider: TAVO LANDEROS Report Released Date/Time: Jun 11, 2024 03:04 PM Reporting Lab: [address] [address] Performing Lab: [address] [address] HEMOGLOBIN A1C 5.3 4.0-5.6 Jun 19, 2024 08:43 AM [facility] LIPID PANEL FASTING SERUM Specimen Ty pe: SERUM No comment entered. Ordering Provider: TAVO LADNEROS Report Released Date/Time: Jun 11, 2024 03:04 PM Reporting Lab: [address] [address] Performing Lab: [address] [address] CHOLESTEROL 147 mg/dL TRIGLYCERIDE 69 mg/dL 0-150 LDL calculated 91 mg/dL 0-129 CHOL/HDL 3.5 HDL CHOLESTEROL 42 mg/dL 40-60 Jun 19, 2024 08:43 AM [facility] LIVER FUNCTION SERUM Specimen Type: S JAMIE No comment entered. Ordering Provider: TAVO LANDEROS Report Released Date/Time: Jun 11, 2024 03:04 PM Reporting Lab: [address] [address] Performing Lab: [address] [address] PROTEIN,TOTAL 6.0 g/dL 6.0-8.3 ALBUMIN 3.7 g/dL 3.5-5.0 ALKALINE PHOSPHATASE 63 U/L 40-150 AST 15 U/L 5-34 ALT 14 U/L BILIRUBIN, TOTAL 0.5 mg/dL 0.2-1.2 Jun 19, 2024 08:43 AM [facility] TSH SERUM Sp ecimen Type: SERUM No comment entered. Ordering Provider: TAVO LANDEROS Report Released Date/Time: Jun 11, 2024 03:04 PM Reporting Lab: [address] [address] Performing Lab: [address] [address] TSH 0.99 u[IU]/mL 0.35-5.00 Jun 19, 2024 08:43 AM [facility] BASIC METABOLIC PANEL (fasting) SERUM Specimen Type: SERUM No comment entered. Ordering Provider: TAVO LANDEROS Report Released Date/Time: Jun 11, 2024 03:04 PM Reporting Lab: [address] [address] Performing Lab: [address] [address] UREA NITROGEN 8 mg/dL 7-25 GLUCOSE 90 mg/dL 65-100 SODIUM 140 mmol/L 135-145 POTASSIUM 4.1 mmol/L 3.5-5.0 CHLORIDE 108 mmol/L 100-110 CO2 26 meq/L 20-30 CREATININE, Serum 0.86 mg/dL 0.50-1.40 eGFR(CKD-EPI 2020) >90 mL/min >60 Jun 19, 2024 08:43 AM [facility] CBC AND DIFF (AUTO) BLOOD Specimen Ty pe: BLOOD No comment entered. Ordering Provider: TAVO LANDEROS Report Released Date/Time: Jun 11, 2024 03:04 PM Reporting Lab: [address] [address] Performing Lab: [address] [address] WBC 5.24 10*3/uL 4.50-11.00 RBC 5.64 10*6/uL 4.23-5.66 HGB 13.1 g/dL 12.8-17 HCT 41.7 39.2-50.4 MCV 73.9 fL L 82-99 MCHC 31.4 g/dL 30.8-35.1 PLT 181 10*3/uL 140-360 RDW-CV 15.7 12.0-16.0 MONO, ABS 0.34 10*3/uL 0.30-1.10 MCH 23.2 pg L 26.2-32.6 NEUT % 61.2 43.7-75.8 LYMPH % 28.4 14.0-42.3 MONO % 6.5 5.1-13.7 EOS % 2.5 0.4-6.8 BASO % 0.8 0.1-2.0 NEUT, ABS 3.21 10*3/uL 2.20-7.60 LYMPH, ABS 1.49 10*3/uL 1.00-3.20 EOS, ABS 0.13 10*3/uL 0.03-0.44 BASO, ABS 0.04 10*3/uL 0.01-0.13 IMMATURE GRAN % 0.6 0.0-0.7 IMMATURE GRAN, ABS 0.03 10*3/uL 0.00-0.0 6 NRBC % 0.0 0.0-0.0 NRBC, ABS 0.00 10*3/uL 0.00-0.00 Social History: Smoking Status (Most current) and Tobacco Use (All prior to encounter date) This section includes the most current, and the historical, smoking and tobacco- related health factors from the AL facility where the Encounter took place. Current Smoking Status This section includes the most current smoking, or tobacco-related health factor, from the AL facility where the Encounter took place. Date/Time Current Smoking Status Comment Ely izquierdo Aug 12, 2023 10:47 AM VA-TOBACCO NEVER USED [facility] Tobacco Use History This section includes a history of the smoking, or tobacco-related health factors, that were collected on or before the date of the Encounter. The data comes from the AL facility where the Encounter took place. Date/Time Smoking Status/Tobacco Use Comment Nawaf aravind May 02, 2022 12:18 PM VA-TOBACCO NEVER USED [facility] Encounter Notes: All associated encounter notes This section contains the clinical notes associated to the Encounter. Date/Time Encounter Note(s) Provider Source Jun 11, 2024 09:13 AM OPTOMETRY NOTE: LOCAL TITLE: OPTOMETRY NOTE STANDARD TITLE: OPTOMETRY NOTE DATE OF NOTE: JUN 11, 2024@09:13 ENTRY DATE: JUN 11, 2024@09:13:26 AUTHOR: CARINE VIZCAINO EXP COSIGNER: URGENCY: STATUS: COMPLETED Active problems - Computerized Problem List is the source for the followin. Exposure to potentially hazardous substance 2. Skin lesion 3. Tremor 4. Thiamine deficiency 5. Vitamin B12 deficiency (non anemic) 6. Resting tremor 7. Lumbar radiculopathy 8. Loose stools 9. History of haematuria 10. Cranial neuralgia 11. Congenital stenosis of aortic valve 12. Non-cardiac chest pain 13. Raised prostate specific antigen 14. Male hypogonadism 15. Chronic prostatitis 16. Microcytic hypochromic anemia 17. 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 Transient Ischemic Attack * 20. Insomnia * 21. Arthralgia * 22. Osteoarthritis * 23. Dermatitis, Atopic 24. Open Angle Glaucoma Suspect 25. Dry Eye Syndromes * 26. Varicocele * 27. Backache 28. History of adenomatous polyp of colon 29. Orthostatic Hypotension * 30. Overweight 31. Dizziness (SNOMED CT [id number]) 32. Acne 33. herniated disc 34. Male erectile disorder Active Outpatient Medications (including Supplies): Active Outpatient Medications Status 1) CYANOCOBALAMIN 500MCG TAB TAKE ONE TABLET BY MOUTH ONCE HOLD DAILY Indication: FOR PREVENTION OF VITAMIN B12 DEFICIENCY Active Non-VA Medications Status 1) Non-VA ASPIRIN 81MG EC TAB 81MG BY MOUTH DAILY ACTIVE 2 Total Medications Allergies: BACTRIM-DS All medications including those prescribed by outside VA's, community providers, and all OTC meds were reviewed and reconciled with patient to the best of their abilities. This 68 year old MALE is seen today for comprehensive eye examination. Medical, eye, personal, and social history are all reviewed and is contributory to today's visit for bilateral cataracts, bilateral dry eye disease as well as bilateral low risk glaucoma suspect. His last eye examination was here on May 21, 2023. He presents today for comprehensive eye examination not voicing any interval visual or ocular changes. (-) Pain: (-) TOTH: (-) Diplopia: (-) Flashes: (-) Floaters: (-) Amaurosis Fugax/Tia's: (-) Eye Injury: (-) Eye Surgery: (-) TBI: Chief Complaint: Feels vision is stable with current glasses. Prefers to read without glasses. Vision: With 20/25+ right eye 20/25+ left eye Without Correction Pupils, EOMS, confrontation little are all done and show round reactive pupils without afferent pupillary defect with full extraocular motility and full confrontation little to finger counting each eye Current Wear: OD: Jena -2.75 axis 085 OS: +0.75 -2.75 axis 080 Refraction: OD: -0.25 -2.75 axis 085 20/20 OS: +0.50 -2.75 axis 080 20/20 Tonometry: 12 OD 12 OS Time: 9:10 AM dilated with tropicamide 1% each eye after dilation warning given and verbal consent obtained PreTreatment IOP: OD OS Pachymetry: Previously measured 501 m right eye 499 m left eye Significantly thinner than average each eye Anterior segment: Lids: Dermatochalasis with ptosis left greater than right upper lid with chronic meibomian gland dysfunction all 4 lids Conj: Trace chronic injection each eye Cornea: Clear centrally without staining or pigment each eye AC: 3+ and quiet each eye Iris: Normal no transillumination defects each eye Lens: 2-2+ nuclear sclerosis with trace anterior cortical changes but no pseudoexfoliation each eye Vit: Clear each eye Fundus exam: Dilated: xxx Non dilated: Hide C/D: 0.60 right eye 0.60 left eye no splinter hemorrhage or notching Macula: Normal each eye A/V: 1/2 each eye Vessels: Normal each eye Periphery: No holes, tears, detachments each eye Impression: Nuclear sclerotic and cortical cataracts not visually significant at present. Update glasses today distance vision only, prefers to read without correction. Bilateral low risk glaucoma suspect with moderately large optic nerve cupping with healthy disc appearance, good color and intact rim tissue. There is no evidence of pseudoexfoliation or pigment dispersion either eye and patient denies positive family history of glaucoma. Previous pachymetry however is significantly thinner than average with adjusted IOP's in high teens. Repeat optic nerve OCT remains stable with robust retinal nerve fiber layer thickness each eye. Overall index of suspicion for glaucoma remains low but will continue to monitor on an annual basis. 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 Plan: Patient education as noted above reviewed exam findings now. Ordered new glasses today. Return in 12 months or sooner if need be. Education: Glaucoma: Patient was educated regarding glaucoma/glaucoma suspect as well as the natural history of this diagnosis including prognosis. Stress importance of compliance and persistency with glaucoma medication when prescribed, timely follow up as well as the role of ancillary testing. Exclusion criteria for ancillary testing include significantly reduced acuity, mental status changes affecting the patient's ability to attend to the test or other physical limitations that would prohibit the patient's ability to participate in testing. Return to Clinic 12 months or sooner if need be. Ophthalmic medication reconciliation: He is currently not taking or prescribed any ocular medications. Medication Reconciliation: Outpatient: Has the patient been taking medications as documented in the EMLR? YES: The patient has been taking medications as documented in the EMLR. Essential Medication List for Review used to complete this medication reconciliation. INCLUDED IN THIS LIST: Alphabetical list of active outpatient prescriptions dispensed from this VA (local) and dispensed from another AL or [facility] facility (remote) as well as inpatient orders (local, pending and active), local clinic medications, locally documented non-VA medications, and local prescriptions that have or been discontinued in the past 90 days. - All changes in medications, including all non-VA/Herbal/OTC medications were entered into CPRS. - If there were any medications the patient should no longer take, they were discontinued. - The patient/caregiver was instructed to update this list, discard old lists, and take this list to the next appointment, whether with a VA or non-VA provider. JLV Link Data on this list may not be complete. Please check JLV. Allergies/ADRs (Tool #5) FACILITY ALLERGY/ADR -------- [facility] NO KNOWN ALLERGIES [place] [facility] [place] [facility] BACTRIM-DS Med [facility] (Tool #1) INCLUDED IN THIS LIST: Alphabetical list of active outpatient prescriptions dispensed from this AL (local) and dispensed from another AL or [facility] facility (remote) as well as inpatient orders (local pending and active), local clinic medications, locally documented non-VA medications, and local prescriptions that have or been discontinued in the past 90 days. Non-VA Meds Last Documented On: Apr 14, 2013 NOTE The display of VA prescriptions dispensed from another AL or DoD facility (remote) is limited to active outpatient prescription entries matched to National Drug File at the originating site and may not include some items such as investigational drugs, compounds, etc. NOT INCLUDED IN THIS LIST: Medications self-entered by the patient into personal health records (i.e. [employer]) are NOT included in this list. Non-VA medications documented outside this AL, remote inpatient orders (regardless of status) and remote clinic medications are NOT included in this list. The patient and provider must always discuss medications the patient is taking, regardless of where the medication was dispensed or obtained. Non-VA ASPIRIN 81MG EC TAB TAKE ONE TABLET BY MOUTH DAILY Patient wants to buy from Non-VA pharmacy. OUTPT CYANOCOBALAMIN 500MCG TAB (Status = On Hold) TAKE ONE TABLET BY MOUTH ONCE DAILY FOR PREVENTION OF VITAMIN B12 DEFICIENCY Rx# [id number] Last Released: / Supply: Rx Expiration Date: 09/01/24 Refills Remainin Indication: FOR PREVENTION OF VITAMIN B12 DEFICIENCY SUPPLIES Declines printed copy of medication list now. /lele/ Carine Vizcaino OD CHIEF OF OPTOMETRY Signed: 06/11/2024 09:39 CARINE VIZCAINO [facility]
[2025-01-04 10:28] VITALS: BP 128/76; BMI 24.8
--- NOTE | 2025-01-04 10:28 | A.OFFVIS_ITS ---
Vital Signs 01/04/25 10:28 Height 6 ft Weight 183 lb BMI 24.8 BP 128/76 Blood Pressure Location Rt brachial Position Sitting Intake Visit Reasons: follow up Intake Note: patient following up, was never booked for PT. patient stated no one informed him. Allergies Sulfa (Sulfonamide Antibiotics) Allergy (Mild, Verified 01/04/25 10:30) Rash Medication List - Last Reconciled 01/04/25 by Marilee Krishna MD propranolol 10 mg PO BID HPI Comments Details: 69y/o Right Handed male follow up of tremors.he did not tolerate primidone. He did feel groggy. he did not do vestibular therapy or start propranolol. He reports some gait issues. he has difficulty eating , writing etc. He also has reports of vertigo when he usually wakes up from bed with nausea, sweating etc. History from initial visit-He started noticing tremor sin his left hand about 5 years which has progressed and now he has tremors in his right hand as well. The tremors are more with action and posture but he has tremors at rest as well.It does not affect his ADLs , may have some difficulty while brushing his teeth .He denies any leg tremors, head or voice tremors. Handwriting is fine most of the times. No difficulty with dressing or showering No change in voice. No change in gait No memory problems/ No memory issues,depression or anxiety. He has dizziness that started 10 years ago. he describes the episode of vertigo with nausea, sweating . No tinnitus.He has 1 episode a month and can last 10 minutes. He denies constipation or diarhea. Both his brothers are diagnosed with parkinsons disease. 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 He smokes 1 joint of weed a night [facility] Medical History Benign paroxysmal vertigo Vertigo Chronic prostatitis Essential and other specified forms of tremor Neck pain Low back pain B12 deficiency Lipoma Family History Brother No problems noted. Father No problems noted. Mother No problems noted. Social History Household Members: None Housing: Apartment Alcohol intake: never Patient Tobacco Use Status: Never used Tobacco Substance Use Type: Marijuana Physical Exam Vital Signs: Last Vital Signs BP 128/76 01/04/25 10:28 BMI result Body Mass Index 24.8 Const Other: Andreas Ue postural and action tremors No voice tremors Good facial expression and blink No bradykinesia or cog wheel rigidity General: cooperative, healthy appearing and comfortable Nutritional Appearance: average body habitus Orientation/consciousness: patient oriented x3 Eyes Pupils: Equal, round and reactive pupils present Neuro General: patient oriented x3, gait normal, tone normal, moves all extremities and no focal motor deficits Cranial nerves: Yes Facial sensation intact/muscles of mastication intact, Yes Equal, round and reactive pupils present, Yes Bilaterally intact EOM present, Yes Nystagmus not present, Yes Normal facial strength present, Yes Midline tongue present and Yes Ability to bilaterally elevate shoulders present Cognition (Neuro): normal cognition Gait exam (Neuro): Normal gait present Motor exam (neuro): 5/5 motor strength present throughout and Normal motor muscle tone present throughout Deep tendon reflexes (DTR's): Right triceps reflex intensity grade: 2+ Coordination: [id number] test normal Assessment & Plan Assessment & Plan (1) Essential and other specified forms of tremor: Code(s): G25.0 - Essential tremor; G25.2 - Other specified forms of tremor Category: Medical (2) Vertigo: Comment: renae BP Code(s): R42 - Dizziness and giddiness Category: Medical Plan I will trial him on Propranolol 10mg bid .discussed side effects Vestibular therapy for vertigo . f/u 4 mths Medications: New propranolol 10 mg PO BID 60 tabs 6RF Coding Level of Care Code Est Pt Level 4 (45072) Complex EM visit Add On G2211 Diagnoses Essential and other specified forms of tremor G25.0; G25.2 Vertigo R42
== END 2025-01-04 10:51 | disposition home or self-care (01) ==
LOC: HO.HSMS 10:28
PROVIDERS: PCP Internal Medicine; Referring Provider Psychiatry & Neurology Neurology; Visit Provider Psychiatry & Neurology Neurology
DX: G25.0 Essential tremor (principal); G25.2 Other specified forms of tremor; R42 Dizziness and giddiness
CPT/HCPCS: 99214; G2211

== ENCOUNTER → 2025-01-04 10:28 | Outpatient (BNVA) | payer OTHER, SELFPAY | PROVIDERS: PCP Internal Medicine; Visit Provider Psychiatry & Neurology Neurology | DX: R42 Dizziness and giddiness (principal); G25.0 Essential tremor; G25.2 Other specified forms of tremor | CPT/HCPCS: 99212 ==

== ENCOUNTER 2025-05-03 12:22 | Outpatient (AMB) | payer OTHER, SELFPAY ==
[2025-05-03 12:21] VITALS: BP 110/70; PULSE 84; O2SAT 97; BMI 25.6
--- NOTE | 2025-05-03 12:21 | A.OFFVIS_ITS ---
Vital Signs 05/03/25 12:21 Height 6 ft Weight 188 lb 8 oz BMI 25.6 BP 110/70 Blood Pressure Location Rt brachial Position Sitting Pulse 84 Pulse Source Pulse Oximeter Pulse Oximetry (%) 97 Oxygen Delivery Method Room Air Intake Visit Reasons: 4 mo follow up Intake Note: Follow up Essential and other specified forms of tremor, vertigo, dizziness and giddiness In Service Education Teacher Required: No Accompanied by: Self / Same As Patient Allergies Sulfa (Sulfonamide Antibiotics) Allergy (Mild, Verified 05/03/25 12:21) Rash HPI Comments Details: 69y/o Right Handed male follow up of tremors.he did not tolerate primidone. He did feel groggy. he did not do vestibular therapy or start propranolol. Tremors are better. Now he c/o pain in right frontal region and radiates down his neck and left forearm .He reports tightness in his neck He also has reports of vertigo when he usually wakes up from bed with nausea, sweating etc. History from initial visit-He started noticing tremor sin his left hand about 5 years which has progressed and now he has tremors in his right hand as well. The tremors are more with action and posture but he has tremors at rest as well.It does not affect his ADLs , may have some difficulty while brushing his teeth .He denies any leg tremors, head or voice tremors. Handwriting is fine most of the times. No difficulty with dressing or showering No change in voice. No change in gait No memory problems/ No memory issues,depression or anxiety. He has dizziness that started 10 years ago. he describes the episode of vertigo with nausea, sweating . No tinnitus.He has 1 episode a month and can last 10 minutes. He denies constipation or diarhea. Both his brothers are diagnosed with parkinsons disease. 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 He smokes 1 joint of weed a night [facility] Medical History (Updated 05/03/25 @ 12:42 by Marilee Krishna MD) Cervicalgia Benign paroxysmal vertigo Vertigo Chronic prostatitis Essential and other specified forms of tremor Neck pain Low back pain B12 deficiency Lipoma Family History Brother No problems noted. Father No problems noted. Mother No problems noted. Social History Household Members: None Housing: Apartment Alcohol intake: never Patient Tobacco Use Status: Never used Tobacco Substance Use Type: Marijuana Physical Exam Vital Signs: Last Vital Signs Pulse 84 05/03/25 12:21 BP 110/70 05/03/25 12:21 Pulse Ox 97 05/03/25 12:21 Oxygen Delivery Method Room Air 05/03/25 12:21 BMI result Body Mass Index 25.6 Const Other: Andreas Ue postural and action tremors No voice tremors Good facial expression and blink No bradykinesia or cog wheel rigidity General: cooperative, healthy appearing and comfortable Nutritional Appearance: average body habitus Orientation/consciousness: patient oriented x3 Eyes Pupils: Equal, round and reactive pupils present Neuro General: patient oriented x3, gait normal, tone normal, moves all extremities and no focal motor deficits Cranial nerves: Yes Facial sensation intact/muscles of mastication intact, Yes Equal, round and reactive pupils present, Yes Bilaterally intact EOM present, Yes Nystagmus not present, Yes Normal facial strength present, Yes Midline tongue present and Yes Ability to bilaterally elevate shoulders present Cognition (Neuro): normal cognition Gait exam (Neuro): Normal gait present Motor exam (neuro): 5/5 motor strength present throughout and Normal motor muscle tone present throughout Deep tendon reflexes (DTR's): Right triceps reflex intensity grade: 2+ Coordination: [id number] test normal Assessment & Plan Assessment & Plan (1) Essential and other specified forms of tremor: Code(s): G25.0 - Essential tremor; G25.2 - Other specified forms of tremor Category: Medical (2) Vertigo: Comment: renae BP Code(s): R42 - Dizziness and giddiness Category: Medical (3) Cervicalgia: Code(s): M54.2 - Cervicalgia Category: Medical Plan He does not want to try propranolol due to side effects Vestibular therapy for vertigo . PT for neck Check Vit B 12 levels f/u 4 mths Orders: Orders TSH reflex Free T4 Today G25.0 - Essential tremor, G25.2 - Other specified forms of tremor PT Evaluation and Treatment Today M54.2 - Cervicalgia Vitamin B12 and Folate Today G25.0 - Essential tremor, G25.2 - Other specified forms of tremor Vitamin D 25-OH (D2 and D3) Today G25.0 - Essential tremor, G25.2 - Other specified forms of tremor Coding Level of Care Code Est Pt Level 4 (05071) Diagnoses Essential and other specified forms of tremor G25.0; G25.2 Vertigo R42 Cervicalgia M54.2
--- OUTSIDE RECORDS SUMMARY | 2025-05-03 15:44 | XMS_ITS | Clinical Summary ---
Author Organization [facility] Address [address] [place] [address] Care Team Providers Care Collection Technician Name Role Phone Virginia Carrillo PA-C Primary Care Provider [phone] Source Comments PLEASE NOTE, if this patient is a minor, it may be UNLAWFUL to discuss sensitive information that is contained in these records (such as FAMILY PLANNING, MENTAL HEALTH or SUBSTANCE ABUSE) with the minor patient's parent or other person without the patient's specific authorization.[facility] Allergies No known active allergies Medications aspirin (ASPIRIN LOW DOSE) 81 mg EC tabletIndications :Routine general medical examination at a health care facility Take 1 Tab by mouth once daily. 07/12/2014 Active valACYclovir (VALTREX) 1 gram tablet Take 1 Tab by mouth once daily. 30 Tab 6 07/12/2014 Active Active Problems Problem Noted Date Diagnosed Date Fatigue 11/02/2014 Herpes simplex antibody positive 06/25/2014 H/O colonoscopy 07/12/2005 Family History Medical History Relation Name Comments Heart Problems Brother Cancer Maternal Aunt stomach Hypertension Mother Cancer Sister skin Relation Name Status Comments Brother Maternal Aunt Mother Sister Social History Tobacco Use Types Packs/Day Years Used Date Smoking Tobacco: Former Smokeless Tobacco: Never Alcohol Use Standard Drinks/Week Comments No 0 (1 standard drink = 0.6 oz pur e alcohol) Social Connections Answer Date Recorded Social Connections and Isolation 0 03/01/2019 Financial Resource Strain Answer Date R ecorded Financial Resource Strain 0 2018 Stress Answer Date Recorded Stress 0 03/01/2019 Physical Activity Answer Date Recorded Physical Activity 0 03/01/2019 Food Insecurity Answer Date Recorded Food 0 03/01/2019 Transportation Needs Answer Date Record ed Transportation 0 03/01/2019 Housing Stability Answer Date Recorded Housing 0 03/01/2019 Safety and Environment Answer Date Gwyn rded Safety 0 03/01/2019 Utilities Answer Date Recorded Utilities 0 03/01/2019 Employment Answer Date Recorded Employment 0 03/01/2019 Sex and Gender Information Value Date Recorded Sex Assigned at Not on file Legal Sex Male 11:45 AM PST Gender Identity Not on file Sexual Orientation Not on file Occupation Industry Job Start Date Job End Date retired Not on file Not on file Not on file Last Filed Vital Signs Vital Sign Reading Time Taken Comments Blood Pressure 136/76 07/12/2014 10:49 AM EST Pulse 64 07/12/2014 10:49 AM EST Temperature 36.8 C (98.2 F) 07/12/2014 10:49 AM EST Respiratory Rate 16 07/12/2014 10:4 9 AM EST Oxygen Saturation - - Inhaled Oxygen Concentration - - Weight 84.2 kg (185 lb 11.2 oz) 015 10:49 AM EST Height 179 cm (5' 10.47 ) 07/12/2014 10 :49 AM EST Body Mass Index 26.29 07/12/2014 10:49 AM EST Plan of Treatment Not on file Insurance MEDICARE - [place] Care Teams Collection Technician Relationship Specialty Start Date End Date Virginia Carrillo PA-C [address] [place] [address] PCP - General Internal Medicine 07/05/16
--- OUTSIDE RECORDS SUMMARY | 2025-05-03 15:44 | XMS_ITS | Encounter Summary ---
Author Organization [facility] Address [address] [place] [address] Care Team Providers Care Senior Geotechnical Engineer Name Role Phone Mcik Tena MD Primary Care Provider Encounter Details Date Type Department Care Team (Late st Contact Info) Description 08/12/2024 Lab Requisition [facility] - Main Lab [address] [facility] [place] [address] Harish Hicks MD [address] [facility] [address] [place] [address] Other specified disorders of the male genital organs Social History Tobacco Use Types Packs/Day Years Used Date Smoking Tobacco: Never Passive Smoke Exposure: Never Smokeless Tobacco: Never Alcohol Use Standard Drinks/Week Comments Never 0 (1 standard drink = 0.6 oz pur e alcohol) Sex and Gender Information Value Date Recorded Sex Assigned at Not on file Legal Sex Male 9:43 AM EST Gender Identity Not on file Sexual Orientation Not on file documented as of this encounter Plan of Treatment Upcoming Encounters Date Type Department Care Team (Late st Contact Info) Description 08/23/2025 8:30 AM EST Office Visit Adult Medicine [facility] [address] [place] [address] Mick Tena MD [address] [place], [place] documented as of this encounter Procedures Procedure Name Priority Date/Time Associated Diagnosis Comments TISSUE EXAM Routine 08/12/2024 Other specified disorders of the male genital organs documented in this encounter Results * Tissue Exam (08/12/2024) Final Diagnosis Skin, penile-shave biopsy: -LICHENOID MUCOSITIS -Negative for malignancy -GMS stain negative for fungi (Control appropriate) 2:19 PM [facility] Comment The features are not specific. There is no evidence of lichen sclerosus, no evidence of lichen planus, no evidence of spongiotic dermatitis (allergic contact, nummular, id reaction). The findings are subtle and not diagnostic. However, inactive or treated lichen sclerosis or lichen planus cannot be completely excluded. Clinical correlation is needed. 2:19 PM EST [facility] Clinical Information Penile lesion Other specified disorders of the male genital organs - N50.89 2:19 PM [facility] Gross Description A. Penis, lesion: Labeled penile lesion . Received in formalin is a 0.6 cm in greatest diameter aguilera-red portion of tissue which is inked blue at the probable base, bisected and submitted in entirety in one cassette, two pieces, multiple levels on one slide. TS 2:19 PM EST [facility] Disclaimer NOTE: The immunohistochemical tests and in situ hybridization tests were developed and their performance characteristics were determined by [facility]. They have not been cleared or approved by the U.S. Food and Drug Administration. The FDA has determined that such clearance or approval is not necessary. These tests are used for clinical purposes. They should not be regarded as investigational or for research. This laboratory is certified under the Clinical Laboratory Improvement Amendments of 1988 (CLIA) as qualified to perform high complexity clinical laboratory testing. (controls appropriate) Unless otherwise specified, all tissue is 10% NB formalin fixed and paraffin embedded. 2:19 PM [facility] Tissue Penile structure / Unknown 08/12/2024 08/12/2024 12:34 PM EST us Harish Hicks MD LAB PATHOLOGY ORDERABLES Final R esult [facility] ([facility] [address] [place] [address], documented in this encounter Visit Diagnoses Diagnosis Other specified disorders of the male genital organs documented in this encounter Care Teams Senior Geotechnical Engineer Relationship Specialty Start Date End Date Mick Tena MD [address] [place] PCP - General 10/14/23 documented as of this encounter
--- OUTSIDE RECORDS SUMMARY | 2025-05-03 15:44 | XMS_ITS | Clinical Summary ---
Author Organization [facility] Address [address] [place] [phone] Phone Care Team Providers Care Mental Hygiene Consultant Name Role Phone Mick Tena MD Primary Care Provider Allergies Active Allergy Reactions Criticality Noted Date Comments Sulfamethoxazole-Trimethop rim 05/21/2024 Intolerant of side effects Medications No known medications Active Problems Problem Noted Date Diagnosed Date Alpha thalassemia trait 05/22/2024 Overview (05/22/2024): Mild microcytic anemia. Hemoglobin electrophoresis done in 2012. Tubular adenoma of colon 05/22/2024 Overview (08/21/2024): Noted in colonoscopy [facility] in July 2018. 8 mm polyp.. Colonoscopy in 2023 at [facility] showed 10+ tubular adenomas. Resolved Problems Problem Noted Date Diagnosed Date Resolved Date Encounter for screening for cardiovascular disorders 07/10/2024 08/21/2024 Recurrent major depressive d isorder, remission status unspecified ([facility] V24) 05/22/2024 05/22/2024 Immunizations Immunization Administration Dates Next Due DTaP, Unspecified 03/30/2011 Influenza Quadravalent, 0.5ml (Fluad) 65yo and o lder 05/16/2021 Influenza Quadrivalent, 0.5m l, preservative free (Fluarix; FluLaval; Fluzone) ages 6mo and older (Afluria) 3yo and older 05/03/2020,04/28/2019 Influenza Quadrivalent, with preservative (Fluzone; Afluria) 6mo and older 04/28/2018 Influenza trivalent, 0.5mL (Fluad) 65yo and olde r 05/21/2024 Influenza trivalent, 0.5mL, preservative free (Fluarix; FluLaval; Fluzone) ages 6mo and older (Afluria) 3 years and older 04/11/2017 MMR, measles mumps and rubel la Live (Priorix; M-M-R II) 12mo and older 06/20/2009 Moderna SARS-CoV-2 COVID-19, mRNA, LNP-S, preservative free 09/22/2020,08/25/2020 Pneumococcal conjugate 20 va lent (Prevnar 20, PCV 20) 2mo and older 06/11/2022 Pneumococcal polysaccharide 23 valent (Pneumovax 23) 2yo and older 05/03/2020 Tdap Tetanus diptheria acell ular pertussis (Boostrix; Adacel) 7yo and older 05/16/2021 Zoster Live 02/27/2016 Zoster recombinant (Shingrix) 19yo and older ,10/10/2017 Surgical History Surgery Date Site/Laterality Comments LIPOMA RESECTION Medical History Medical History Date Comments No known health problems Recurrent major depressive d isorder, remission status unspecified ([facility] V24) 05/22/2024 Family History Medical History Relation Name Comments Parkinsonism Brother No Known Problems Father No Known Problems Mother Relation Name Status Comments Brother Father Mother Social History Tobacco Use Types Packs/Day Years Used Date Smoking Tobacco: Never Passive Smoke Exposure: Never Smokeless Tobacco: Never Alcohol Use Standard Drinks/Week Comments Never 0 (1 standard drink = 0.6 oz pur e alcohol) Housing Instability Answer Date Recorde d Are you worried that in the next 2 months you may not have stable housing? No 08/21/2024 Food Access & Nutrition Answer Date Rec orded Do you have access to a vari ety of food including fruits and vegetables? Yes 08/21/2024 Health Literacy Answer Date Recorded How often do you need to hav e someone help you when you read instructions, pamphlets, or other written material from your doctor or pharmacy? Never 08/21/2024 Caregiver: How often do you need to have someone help you when you read instructions, pamphlets, or other written material from your doctor or pharmacy? Not on file 08/21/2024 Financial Risk Answer Date Recorded How hard is it for you to pa y for the very basics like food, housing, medical care, and air conditioning / heating? Not very hard 08/21/2024 Transportation Answer Date Recorded Has the lack of transportati on kept you from meetings, work, or from getting things needed for daily living? No Has the lack of transportati on kept you from medical appointments or from getting medications? No 08/21/2024 Social Isolation Answer Date Recorded How often do you feel lonely or isolated from th ose around you? Never 08/21/2024 Food Risk Answer Date Recorded Within the past 12 months we worried whether our food would run out before we got money to buy more. Never true 08/21/2024 Within the past 12 months th e food we bought just didn't last and we didn't have money to get more. Never true 08/21/2024 Dependent Care Answer Date Recorded Do you need help finding or paying for care for your loved ones. For example, child health associate or elderly care for an older adult? No 08/21/2024 Education Answer Date Recorded Do you think completing more education or training, like finishing a GED, going to college, or learning a trade, would be helpful for you? No 08/21/2024 Employment and Income Answer Date Recor ded During the last four weeks, have you been actively looking for work? No 08/21/2024 Living Situation Answer Date Recorded What is your living situation? Unrecognized valu e 08/21/2024 Sex and Gender Information Value Date Recorded Sex Assigned at Not on file Legal Sex Male 9:43 AM EST Gender Identity Not on file Sexual Orientation Not on file Obstetrics History Last Filed Vital Signs Vital Sign Reading Time Taken Comments Blood Pressure 106/55 08/21/2024 8:36 AM EST Pulse 57 08/21/2024 8:36 AM EST Temperature 36.7 C (98 F) 08/21/2024 8:36 AM EST Respiratory Rate 16 08/21/2024 8:36 AM EST Oxygen Saturation 98% 05/21/2024 8:38 AM EST Inhaled Oxygen Concentration - - Weight 84.4 kg (186 lb) 08/21/2024 8:36 AM EST Height 182.9 cm (6') 08/21/2024 8:36 AM EST Body Mass Index 25.23 08/21/2024 8:36 AM EST Plan of Treatment Upcoming Encounters Date Type Department Care Team (Late st Contact Info) Description 08/23/2025 8:30 AM EST Office Visit Adult Medicine [facility] [address] [place], [place] [phone] Mick Tena MD [address] [place], [place] Health Maintenance Due Date Last Done Comments RSV Immunization Adult Patients (1 - Risk 50-74 years 1-dose series) 2004 Colorectal Cancer Screening: Colonoscopy 03/03/2025 03/03/2024, 07/30/2018 COVID-19 Vaccine ( season) 2025 07/12/2021, 09/22/2020, 08/25/2020 Influenza Vaccine (#1) 2025 , 05/16/2021, 05/03/2020, Additional history exists Falls Risk Assessment 08/21/2025 08/21/2024 Medicare Annual Wellness Visit 08/21/2025 08/21/2024 Social Influencers of Health Screening 08/21/2025 08/21/2024 Cholesterol Screening (Lipid Panel) 05/21/2029 05/21/2024 DTaP,Tdap,and Td Vaccines (3 - Td or Tdap) 05/16/2031 05/16/2021, 03/30/2011 MMR Vaccines Aged Out 06/20/2009 No longer eligi ble based on patient's age to complete this topic Zoster Vaccines Completed 10/28/2018, 11/2017, 02/27/2016 Pneumococcal Vaccine: 50+ Years Completed 06/11/2022, 05/03/2020 Hepatitis C Screening Completed 05/21/2024 Depression Screening Completed 08/21/2024 HIB Vaccines Aged Out No longer eligi ble based on patient's age to complete this topic HPV Vaccines Aged Out No longer eligi ble based on patient's age to complete this topic Hepatitis A Vaccines Aged Out No long er eligible based on patient's age to complete this topic Hepatitis B Vaccines Aged Out No long er eligible based on patient's age to complete this topic IPV Vaccines Aged Out No longer eligi ble based on patient's age to complete this topic Meningococcal ACWY Vaccine Aged Out N o longer eligible based on patient's age to complete this topic Meningococcal B Vaccine Aged Out No l onger eligible based on patient's age to complete this topic RSV Immunization Patients Under 20 months Aged Out No longer eligible based on patient's age to complete this topic Varicella Vaccines Aged Out No longer eligible based on patient's age to complete this topic Procedures Procedure Name Priority Date/Time Associated Diagnosis Comments PROSTATE SPECIFIC ANTIGEN DIAGNOSTIC Routine 04/20/2025 10:01 AM EDT Elevated prostate specific antigen (PSA) HEPATITIS C ANTIBODY Routine 05/21/2024 9:55 AM EST Need for hepatitis C screening test LIPID PANEL WITH REFLEX TO DIRECT LDL Routine 05/21/2024 9:55 AM EST Screening for metabolic disorder EXTERNAL COLONOSCOPY REPORT Routine 03/03/2024 4:39 PM EDT from Last 3 Months or Most Recently Relevant to Health Maintenance Results * Prostate specific antigen diagnostic (04/20/2025 10:01 AM EDT) PSA 3.95 0.00 - 4.00 ng/mL LAB CHEMISTRY METHOD 04/20/2025 2:37 PM EDT [facility] Blood Venous blood specimen / Unknown Venipuncture / Unknown 04/20/2025 10:01 AM EDT 04/20/2025 10:02 AM EDT Narrative [facility] - 04/20/2025 2:37 PM EDT The Siemens Advia Centaur Chemiluminescent Immunoassay is used. Results obtained with different assay methods or kits cannot be used interchangeably. Results cannot be interpreted as absolute evidence of the presence or absence of malignant disease. us Harish Hicks MD LAB BLOOD ORDERABLES Final Resul t [facility] [address] [place] [address], * Hepatitis C antibody (05/21/2024 9:55 AM EST) Hepatitis C Antibody Negative Negative LAB CHEMISTRY METHOD 05/21/2024 4:42 PM [facility] Blood Venous blood specimen / Unknown Venipuncture / Unknown 05/21/2024 9:55 AM EST 05/21/2024 9:55 AM EST us Mick Tena MD LAB BLOOD ORDERABLES F inal Result [facility] [address] [place] [address], [place] [phone] * Lipid panel with reflex to direct LDL (05/21/2024 9:55 AM EST) Pathologist [facility] Cholesterol 149 0 - 200 mg/dL LAB CHEMISTRY METHOD 05/21/2024 4:29 PM [facility] Triglycerides 80 0 - 150 mg/dL LAB CHEMISTRY METHOD 05/21/2024 4:29 PM [facility] HDL 46 >=40 mg/dL LAB CHEMISTRY METHOD 05/21/2024 4:29 PM [facility] LDL Calculated 87 0 - 100 mg/dL LAB CHEMISTRY METHOD 05/21/2024 4:29 PM [facility] VLDL Cholesterol Juan José 16 mg/dL LAB CHEMISTRY METHOD 05/21/2024 4:29 PM [facility] Non HDL Chol. (LDL+VLDL) 103 <145 mg/dL LAB CHEMISTRY METHOD 05/21/2024 4:29 PM [facility] Chol/HDL Ratio 3.2 0.0 - 4.4 LAB CHEMISTRY METHOD 05/21/2024 4:29 PM [facility] Blood Venous blood specimen / Unknown Venipuncture / Unknown 05/21/2024 9:55 AM EST 05/21/2024 9:55 AM EST Mick Tena MD LAB BLOOD ORDERABLES F inal Result [facility] [address] [place] [address], * External Colonoscopy Report (03/03/2024 4:39 PM EDT) Anatomical Region Laterality Modality Endoscopy Historical Provider GI~PROCEDURE ORDERABLES F inal Result from Last 3 Months or Most Recently Relevant to Health Maintenance Insurance [facility] MEDICARE Care Teams Mental Hygiene Consultant Relationship Specialty Start Date End Date Mick Tena MD [address] [place] [phone] PCP - General 10/14/23
== END 2025-05-03 14:21 | disposition home or self-care (01) ==
LOC: HO.HSMS 12:23
PROVIDERS: PCP Internal Medicine; Referring Provider Psychiatry & Neurology Neurology; Visit Provider Psychiatry & Neurology Neurology
DX: G25.0 Essential tremor (principal); G25.2 Other specified forms of tremor; R42 Dizziness and giddiness; M54.2 Cervicalgia
CPT/HCPCS: 99214

== ENCOUNTER 2025-05-03 12:22 | Outpatient (REF) | payer OTHER, SELFPAY ==
[2025-05-03 18:58] LABS: Folate 10.6 ng/mL (> or = 4.0); Vitamin B12 304 pg/mL (200-900)
[2025-05-07 16:13] LABS: Vitamin D 25-OH, D2 <4 ng/mL; Vitamin D 25-OH, D3 16 ng/mL; Vitamin D 25-OH, Total 16 ng/mL (30-100)
== END 2025-05-03 12:23 | disposition home or self-care (01) ==
LOC: HO.HKASLDS 12:22
PROVIDERS: PCP Internal Medicine; Visit Provider Psychiatry & Neurology Neurology
DX: G25.0 Essential tremor (principal); G25.2 Other specified forms of tremor; R42 Dizziness and giddiness; M54.2 Cervicalgia; Z13.21 Encounter for screening for nutritional disorder
CPT/HCPCS: 36415; 82306; 82607; 82746; 84443; 99212